=== PATIENT | female | born 1950 | race Caucasian/White ===

== ENCOUNTER 2020-04-05 10:48 | Outpatient (REF) | payer MEDICARE, MEDICAID, SELFPAY ==
--- NOTE | 2020-04-05 10:53 | CT_ITS ---
EXAMINATION: CT CHEST WITHOUT CONTRAST CLINICAL INFORMATION: Pulmonary nodule follow-up. COMPARISON: 04/15/2019, 08/13/2018. TECHNIQUE: Multidetector volumetric CT imaging of the chest was done. Axial MIP volume rendering provided. Sagittal and coronal reformatted images were obtained. This CT examination was performed using dose optimization techniques as appropriate, variously including the following: *Automated exposure control *Adjustment of mA and/or kV according to patient size (this includes techniques or standardized protocols for targeted exams where dose is matched to indication/reason for exam; i.e. extremities or head) *Use of iterative reconstruction technique DLP: 307 mGy-cm. FINDINGS: HANDKERCHIEF MAKER: No additional findings. LUNGS: Few scattered pulmonary nodules are unchanged since the most distant prior study available for comparison dated 08/13/2018. Reference images are made in PACS for future comparison. The largest lesion is in the lateral basal segment of the right lower lobe measuring 0.8 x 0.7 cm. No new or increasing pulmonary mass or nodule. There is a background of moderately severe centrilobular emphysematous changes predominantly involving the upper lung zones. Bibasilar curvilinear atelectasis. Stable curvilinear scar medial right apex. Trachea is midline and central airways are patent. MEDIASTINUM: Heart size is normal. No pericardial effusion. Coronary artery and thoracic aortic calcifications. No thoracic aortic aneurysm. No mediastinal or hilar lymphadenopathy. Limited views of the thyroid gland are unremarkable. PLEURA: No pleural effusion or pneumothorax. AXILLA: No axillary lymphadenopathy. UPPER ABDOMEN: Cholecystectomy. OSSEOUS STRUCTURES: Multiple old rib deformities from prior fracture. Posterior spinal fusion hardware is again appreciated involving the thoracic spine. No evidence of hardware failure. CT/CT chest wo con IMPRESSION: 1. Few scattered pulmonary nodules as detailed above, all unchanged since the most distant prior study available for comparison dated 08/13/2018. The largest measures 0.8 x 0.7 cm. According to the UPDATED 2017 Fleischner Society recommendations, the advised follow-up imaging for multiple solid nodules, the largest measuring 6 mm or greater, is: LOW RISK PATIENT: CT at 3-6 months, then consider CT at 18-24 months. HIGH RISK PATIENT: CT at 3-6 months, then at 18-24 months. 2. Centrilobular emphysematous changes of the lung. 3. Coronary artery and thoracic aortic calcifications. No evidence of thoracic aortic aneurysm.
== END 2020-04-05 10:49 | disposition home or self-care (01) ==
LOC: HO.CT 10:48
PROVIDERS: PCP Internal Medicine; Visit Provider Internal Medicine
DX: R91.1 Solitary pulmonary nodule (principal)
CPT/HCPCS: 71250

== ENCOUNTER 2020-05-04 15:00 | Outpatient (REF) | payer MEDICARE, MEDICAID, SELFPAY | END 2020-05-04 15:01 | disposition home or self-care (01) | LOC: HO.LAB 15:00 | PROVIDERS: Visit Provider Internal Medicine | DX: Z20.828 Contact with and (suspected) exposure to other viral communicable diseases (principal) | CPT/HCPCS: C9803; U0003 ==

== ENCOUNTER 2020-05-12 13:28 | Outpatient (REF) | payer MEDICARE, MEDICAID, SELFPAY | END 2020-05-12 13:29 | disposition home or self-care (01) | LOC: HO.LAB 13:28 | PROVIDERS: Visit Provider Internal Medicine | DX: Z20.828 Contact with and (suspected) exposure to other viral communicable diseases (principal) | CPT/HCPCS: C9803; U0003 ==

== ENCOUNTER 2020-06-18 11:42 | Outpatient (REF) | payer MEDICARE, MEDICAID, SELFPAY ==
--- NOTE | 2020-06-18 11:55 | XR_ITS ---
EXAMINATION: XR THORACIC SPINE CLINICAL INFORMATION: Pain right back T5-T8 COMPARISON: Previous x-ray most recent January 2017 TECHNIQUE: 3 views of the thoracic spine were obtained. FINDINGS: There is posterior fusion hardware with rods and interpedicular screws at C3, T4, T6 and T7. Orthopedic hardware appears intact. Bone alignment is normal. No fracture or dislocation is seen. There is mild multilevel degenerative spondylosis. Disc spaces are normal. Paraspinal soft tissues are normal. There are postsurgical changes to the lower cervical spine. XR/XR thoracic spine 3V IMPRESSION: Stable postsurgical changes to the thoracic spine. Mild degenerative spondylosis.
== END 2020-06-18 11:43 | disposition home or self-care (01) ==
LOC: HO.XRAY 11:42
PROVIDERS: PCP Internal Medicine; Visit Provider Internal Medicine
DX: M54.6 Pain in thoracic spine (principal)
CPT/HCPCS: 72072

== ENCOUNTER 2020-07-21 12:27 | Outpatient (REF) | payer MEDICARE, MEDICAID, SELFPAY ==
[2020-07-21 13:11] LABS: Estimated Average Glucose 140 mg/dL; Hemoglobin A1c % 6.5 %
== END 2020-07-21 12:28 | disposition home or self-care (01) ==
LOC: HO.LAB 12:27
PROVIDERS: PCP Internal Medicine; Visit Provider Internal Medicine
DX: E11.9 Type 2 diabetes mellitus without complications (principal); Z79.4 Long term (current) use of insulin
CPT/HCPCS: 36415; 83036

== ENCOUNTER 2020-08-27 11:30 | Outpatient (REF) | payer MEDICARE, MEDICAID, SELFPAY ==
--- NOTE | ~2020-08-27 | MM_ITS ---
EXAMINATION: MM SCREENING DIGITAL MAMMOGRAPHY, BILATERAL CLINICAL INFORMATION: Screening. Asymptomatic. The lifetime risk of breast cancer based on the Tyrer-Cuzick Model is 3%. COMPARISON: Mammography: 05/30/2019, 05/16/2018 TECHNIQUE: Digital mammography is performed in craniocaudal and mediolateral oblique views along with computer-aided detection (CAD). Additional right MLO view is provided. FINDINGS: There are scattered areas of fibroglandular density (ACR BI-RADS breast composition Category b). There are no significant masses, abnormal calcifications, or other abnormalities. The axilla and skin contours are unremarkable. No significant changes. MM/MM screening mammo BI IMPRESSION: No mammographic evidence of malignancy. ASSESSMENT: BI-RADS 1: Negative RECOMMENDATION: Routine annual mammography screening. This patient's information was entered into a reminder system with a target due date for their next mammogram.
--- NOTE | ~2020-08-27 | MM_ITS ---
EXAMINATION: BONE DENSITOMETRY CLINICAL INDICATION: Osteoporosis. COMPARISON: Previous BD dated 03/09/2017 and baseline BD dated 12/14/2006. TECHNIQUE: Using a [employer] DXA System (software version: 13.1) manufactured by [employer], dual-energy x-ray absorptiometry was performed of the lumbar spine and left hip. The images are of good technical quality. Summary results are attached. FINDINGS: AP SPINE L1-L2 (excluding L3 and L4): The data of L1-L4 has been changed to exclude the L3 and L4 vertebral bodies, because metallic artifact at these levels may cause overestimation of lumbar spine density. Current: BMD 1.406 g/cm2, Z-score 2.5, T-score 2.0, normal, 4.3% increase from previous, 15.9% increase from baseline (<5% change is not significant). Prior: BMD 1.348 g/cm2. Baseline: BMD 1.213 g/cm2. LEFT FEMUR, NECK: Current: BMD 0.956 g/cm2, Z-score 0.4, T-score -0.6, normal. Prior: BMD 0.913 g/cm2. Baseline: BMD 1.055 g/cm2. LEFT FEMUR, TOTAL: Current: BMD 1.001 g/cm2, Z-score 0.6, T-score -0.1, normal, 8.9% decrease from previous, 10.7% decrease from baseline (<5% change is not significant). Prior: BMD 1.099 g/cm2. Baseline: BMD 1.121 g/cm2. IDENTIFIED RISK FACTORS: Rheumatoid arthritis, height loss, history of fracture (adult). Early menopause, secondary osteoporosis. HISTORY OF FRACTURE: Pelvis, humerus/shoulder. Other. MEDICATIONS: None listed. MM/XR DEXA axial skeleton IMPRESSION: 1. DIAGNOSIS: Normal bone density based on the lowest T-score value of -0.6 in the femoral neck applying World Health Organization criteria. 2. 10-YEAR FRACTURE RISK PREDICTION, FRAX: Major osteoporotic fracture (clinical spine, forearm, hip or shoulder) 13.7%. Hip fracture 1.1%. 3. Treatment Recommendations: NOF guidelines recommend consideration for treatment in postmenopausal women and men age 50 and older presenting with the following: -A hip or vertebral (clinical or morphometric) fracture. -T-score less than or equal to -2.5 at the femoral neck or spine after appropriate evaluation to exclude secondary causes. -Low bone mass at the hip or spine and a 10-year fracture probability by FRAX of greater than or equal to 3% for hip fracture or greater than or equal to 20% for major osteoporotic fracture based on the [place] adapted WHO algorithm. 4. Other Recommendations: All treatment decisions require clinical judgment and consideration of individual patient factors, including patient preferences, comorbidities, previous drug use, risk factors not captured in the FRAX model (e.g. frailty, falls, vitamin D deficiency, increased bone turnover, interval significant decline in bone density) and possible under or overestimation of fracture risk by FRAX. FUTURE SCAN RECOMMENDATION: People with diagnosed cases of osteoporosis or at high risk for fracture should have regular bone mineral density tests. For patients eligible for Medicare, routine testing is allowed once every 2 years. The testing frequency can be increased to one year for patients who have rapidly progressing disease, those who are receiving or discontinuing medical therapy to restore bone mass, or have additional risk factors.
== END 2020-08-27 11:31 | disposition home or self-care (01) ==
LOC: HO.MAMMO 11:30
PROVIDERS: PCP Internal Medicine; Visit Provider Internal Medicine
DX: Z12.31 Encounter for screening mammogram for malignant neoplasm of breast (principal); Z13.820 Encounter for screening for osteoporosis; M81.8 Other osteoporosis without current pathological fracture; M06.9 Rheumatoid arthritis, unspecified; Z78.0 Asymptomatic menopausal state
CPT/HCPCS: 77067; 77080

== ENCOUNTER 2020-10-06 13:49 | Outpatient (REF) | payer MEDICARE, MEDICAID, SELFPAY ==
--- NOTE | ~2020-10-06 | CT_ITS ---
EXAMINATION: CT CHEST WITHOUT CONTRAST CLINICAL INFORMATION: Previous chest CT scans most recent March 2020 COMPARISON: None TECHNIQUE: Multidetector volumetric CT imaging of the chest was done. Axial MIP volume rendering provided. Sagittal and coronal reformatted images were obtained. This CT examination was performed using dose optimization techniques as appropriate, variously including the following: *Automated exposure control *Adjustment of mA and/or kV according to patient size (this includes techniques or standardized protocols for targeted exams where dose is matched to indication/reason for exam; i.e. extremities or head) *Use of iterative reconstruction technique DLP: 281 mGy-cm FINDINGS: PHYSICIAN OFFICE SPECIALIST: LUNGS: There is evidence of emphysema. There is linear scarring at the right lung apex axial image 92 series 5 that is stable. There is a 3 mm left upper lobe nodule axial image 96 series 5 that is stable. There is a 3 mm right upper lobe nodule axial image 153 series 5 that is stable. There is a 6 x 7 mm right lower lobe nodule axial image 270 series 5 that is stable. There is subsegmental atelectasis at the lung bases. The lungs are otherwise clear. MEDIASTINUM: There is coronary artery calcification. The mediastinum is otherwise normal. PLEURA: There is no pleural effusion. No pleural mass or thickening. AXILLA: No lymphadenopathy. UPPER ABDOMEN: Unremarkable. OSSEOUS STRUCTURES: There are postsurgical changes to the midthoracic spine with posterior fusion hardware. There are degenerative changes of the lower thoracic spine.. There are old left posterior rib fractures. CT/CT chest wo con IMPRESSION: Emphysema. Stable pulmonary nodules. Coronary artery calcification.
== END 2020-10-06 13:50 | disposition home or self-care (01) ==
LOC: HO.CT 13:49
PROVIDERS: PCP Internal Medicine; Visit Provider Internal Medicine
DX: R91.1 Solitary pulmonary nodule (principal)
CPT/HCPCS: 71250

== ENCOUNTER 2020-10-18 15:08 | Inpatient (IN) | payer MEDICARE, MEDICAID, SELFPAY ==
--- NOTE | ~2020-10-18 | NM_ITS ---
EXAMINATION: PULMONARY PERFUSION STUDY CLINICAL INFORMATION: Shortness of breath, high d-dimer. COMPARISON: No previous lung scan is available for comparison. Radiographs the chest dated 10/18/2020 are available for comparison. TECHNIQUE: Following the intravenous administration of 4.0 mCi Tc-99m MAA an 8-view perfusion study was performed using a dual detector gamma scintillation camera. No ventilation images were obtained. FINDINGS: Perfusion images: No segmental perfusion defects are present. A small subsegmental perfusion defect is present posteriorly in the right upper lobe. There is some prominence of the left interlobar lobar fissure. No other perfusion abnormalities are present. NM/NM pul perfusion IMPRESSION: Very low probability of pulmonary embolism.
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
--- NOTE | ~2020-10-18 | US_ITS ---
EXAMINATION: US VENOUS ULTRASOUND WITH DOPPLER LOWER EXTREMITY, BILATERAL CLINICAL INFORMATION: Evaluate DVT. PE. COMPARISON: None TECHNIQUE: Ultrasound of the deep veins is performed from the hip to the calf with compression sonography and color and pulse Doppler assessment. Spectral analysis with color-flow imaging is performed. FINDINGS: RIGHT: There is normal venous compression and respiratory variation and augmented flow. The visualized common femoral vein, superficial femoral vein, profunda femoral vein and popliteal vein show no DVT. The calf veins are not visualized. There is no significant popliteal fossa cyst. LEFT: There is normal venous compression and respiratory variation and augmented flow. The visualized common femoral vein, superficial femoral vein, profunda femoral vein and popliteal vein show no DVT. The calf veins are not visualized. There is no significant popliteal fossa cyst. If the patient's symptoms persist, followup ultrasound in 5 days 7 days might be of value to exclude proximal propagation from a non-visualized calf vein. US/US venous duplex LE IMPRESSION: No DVT demonstrated in bilateral lower extremity. Bilateral calf veins are not well visualized. There is no Paulson's cyst.
[2020-10-18 15:26] VITALS: BP 124/94; PULSE 122; O2SAT 100
[2020-10-18 15:33] VITALS: BP 166/79; PULSE 75; RESP 24; TEMP 36.6; O2SAT 96; BMI 55.2
--- NOTE | 2020-10-18 15:46 | ECG_ITS ---
Test Reason : DYSPNEA Blood Pressure : / mmHG Vent. Rate : 072 BPM Atrial Rate : 072 BPM P-R Int : 142 ms QRS Dur : 110 ms QT Int : 408 ms P-R-T Axes : 063 -25 036 degrees QTc Int : 446 ms Normal sinus rhythm Incomplete left bundle branch block Abnormal ECG No significant changes seen compared to prior EKG Referred By: Robert Jorgensen Electronically Signed By:NATHALIE MACK
--- NOTE | 2020-10-18 16:08 | ED.SOB ---
HPI - SOB/Dyspnea General Chief Complaint: Dyspnea Stated Complaint: sob Time Seen by Provider: 10/18/20 15:35 Source: patient and EMS Mode of arrival: EMS History of Present Illness HPI Narrative: 70-year-old female with a past medical history of diabetes, GERD, HTN, hypothyroid, BIBA c/o worsening SOB x few weeks with orthopnea, exertional dyspnea, intermittent palpitations, extremity swelling, and shortness of breath waking up from sleep repeatedly during the night. Admits to dry cough. Denies fever, chills, chest pain, abdominal pain, nausea/vomiting, recent travel, history of blood clots, sick contacts MD elicited complaint: shortness of breath and cough Related Data Allergies Allergy/AdvReac Type Severity Reaction Status Date / Time fish derived [fish] Allergy Anaphylaxis Verified 10/18/20 15:44 Iodinated Contrast Media Allergy Anaphylaxis Verified 10/18/20 15:44 [IV Contrast Dye] Penicillins Allergy Anaphylaxis Verified 10/18/20 15:44 Review of Systems Review of Systems: Constitutional: No Fever, No Chills, No Fatigue, No Malaise ENT/Mouth: No Ear Pain, No Nasal Congestion, No Sinus Pain, No sore throat Cardiovascular: No Chest Pain, + SOB, +Dyspnea on Exertion,+ Orthopnea, + Edema, + Palpitations Respiratory: + Cough, No Sputum, No Dyspnea Gastrointestinal: No Nausea, No Vomiting, No Diarrhea, No Constipation, No Abdominal pain Genitourinary: No Dysuria, No Urinary Frequency, No Hematuria Musculoskeletal: No joint pain, No Myalgias, No Joint Swelling Skin: No Skin Lesions, No rash Neuro: No Weakness, No Numbness, No Dizziness, No Headache Yes all other systems are reviewed and are negative ON LICENSE OF [facility] Past Medical History Attestation statement: The following information was validated with the patient. Medical History (Updated 10/18/20 @ 17:02 by AURELIA Carmona) Diabetes GERD (gastroesophageal reflux disease) HTN (hypertension) Hypothyroid Social History Social History Alcohol intake: never Smoking Status: Never smoker Use of substances other than those prescribed or required for medical reasons: No Advance Directives: No Advance Directives Information Provided: Yes Physical Exam Vital Signs: Vital Signs: Last Vital Signs Temp 98 F 10/18/20 15:33 Pulse 75 10/18/20 15:33 Resp 24 H 10/18/20 15:33 BP 166/79 H 10/18/20 15:33 Pulse Ox 96 10/18/20 15:33 Body Mass Index 55.2 Const: General: cooperative, no acute distress and anxious Orientation/consciousness: patient oriented x3 Limitations: no limitations HENMT: Head: Yes normal to inspection Ears: hearing grossly normal bilaterally General nose exam: Normal external nose present Face and sinus: Yes normal facial exam Eyes: General: appearance normal, both eyes and all related structures EOM: EOMs intact bilaterally Neck: Neck: Yes normal visual inspection and Yes no meningeal signs Resp: Effort & Inspection: normal respiratory effort Auscultation: no wheezes and diminished lung sounds (shallow) diffuse Cardio: Rate: regular rate Heart sounds: S1 normal heart sound present and S2 normal heart sound present GI: Inspection: Yes normal to inspection Palpation (GI): Soft to palpation, nontender, no guarding and not rigid Skin: Rashes: no rashes Wounds: no wounds Neuro: General: patient oriented x3 and no meningeal signs Gait exam (Neuro): Normal gait present Extrem: General: Yes normal to inspection Course Course Course Narrative: XR chest 2V IMPRESSION: No evidence for acute disease in the chest. -1700--ED care transferred to [facility] pending remaining labs and anticipated admission MDM - SOB/Dyspnea Lab Data Result diagrams: 10/18/20 16:24 10/18/20 16:24 Labs: Lab Results 10/18/20 10/18/20 Range/Units 16:24 16:24 WBC 11.9 H (4.8-10.8) X10*3/uL RBC 4.15 L (4.20-5.50) X10*6/uL Hgb 11.7 L (12.0-16.0) g/dl Hct 37.5 (37-47) % MCV 90.4 (80-98) fL MCH 28.2 (27.0-33.0) pg MCHC 31.2 (31.0-35.0) g/dl RDW 15.9 (11.0-16.0) % Plt Count 199 (160-400) X10*3/uL MPV 10.3 (9.4-12.3) fL Immature Gran % (Auto) 1.4 H (0.0-0.4) % Neut % (Auto) 72.5 (45-73) % Lymph % (Auto) 20.0 (20-40) % [place] % (Auto) 5.4 (2-11) % Eos % (Auto) 0.5 (0-4) % Baso % (Auto) 0.2 (0-2) % Lymph # (Auto) 2.4 (1.2-4.9) X10*3/uL [place] # (Auto) 0.6 (0.1-1.2) X10*3/uL Eos # (Auto) 0.1 (0.0-0.4) X10*3/uL Baso # (Auto) 0.0 (0.0-0.2) X10*3/uL Abs Immat Gran (auto) 0.17 H (0.00-0.03) X10*3/uL Absolute Neuts (auto) 8.7 H (2.0-8.3) X10*3/uL Absolute Nucleated RBC 0.000 (0.0-0.012) X10*3/uL Nucleated RBC % (auto) 0.0 (0.0-0.2) /100WBC PT 12.7 (10.8-13.0) SEC INR 1.1 (0.9-1.1) APTT 34.2 (24.1-38.0) SEC Discharge Plan Discharge Clinical Impression: Pitting edema, Dyspnea
[2020-10-18 16:34] LABS: MANUAL DIFF FLAG NO
[2020-10-18 16:36] LABS: Basophils Percent Auto 0.2 % (0-2); Eosinophils Absolute Auto 0.1 X10*3/uL (0.0-0.4); Eosinophils Percent Auto 0.5 % (0-4); Hematocrit 37.5 % (37-47); Hemoglobin 11.7 g/dl (12.0-16.0); Imm Gran Abs Auto 0.17 X10*3/uL (0.00-0.03); Imm Gran Pct Auto 1.4 % (0.0-0.4); Lymphocytes Absolute Auto 2.4 X10*3/uL (1.2-4.9); Mean Corpuscular HGB Conc 31.2 g/dl (31.0-35.0); Mean Corpuscular Hemoglobin 28.2 pg (27.0-33.0); Mean Corpuscular Volume 90.4 fL (80-98); Mean Platelet Volume 10.3 fL (9.4-12.3); Monocytes Absolute Auto 0.6 X10*3/uL (0.1-1.2); Monocytes Percent Auto 5.4 % (2-11); Neutrophils Absolute Auto 8.7 X10*3/uL (2.0-8.3); Neutrophils Percent Auto 72.5 % (45-73); Platelet Count 199 X10*3/uL (160-400); Red Blood Count 4.15 X10*6/uL (4.20-5.50); Red Cell Distribution Width 15.9 % (11.0-16.0); White Blood Count 11.9 X10*3/uL (4.8-10.8)
[2020-10-18 16:41] LABS: INTERNATIONAL NORM RATIO 1.1 (0.9-1.1); Prothrombin Time 12.7 SEC (10.8-13.0)
[2020-10-18 16:44] LABS: Partial Thromboplastin Time 34.2 SEC (24.1-38.0)
[2020-10-18 17:10] LABS: Alanine Aminotransferase 24 U/L (0-31); Albumin Level 3.3 g/dL (3.5-5.0); Alkaline Phosphatase 96 U/L (39-117); Anion Gap 11 (12-20); Aspartate Amino Transferase 35 U/L (5-31); Bilirubin Direct < 0.2 mg/dL (0.0-0.5); Bilirubin Total 0.4 mg/dL (0.0-1.0); Blood Urea Nitrogen 13 mg/dL (9-16); Calcium 8.6 mg/dL (8.4-10.2); Carbon Dioxide 34 mmol/L (22-29); Chloride 100 mmol/L (96-108); Creatinine Clr Calc Pharmacy 109.2; Estimated Glomerular Filt Rate > 60; Glucose Random 90 mg/dL (60-115); Magnesium 2.1 mg/dL (1.6-2.6); Potassium 4.3 mmol/L (3.3-5.1); Sodium 141 mmol/L (135-145); Total Protein 6.9 g/dL (6.5-8.0)
[2020-10-18 17:11] LABS: B Type Natriuretic Peptide 55 pg/mL (<100)
[2020-10-18 17:30] LABS: Troponin-I High Sensitivity 23.2 ng/L (<3.5-17.0)
[2020-10-18 17:45] LABS: Glucose, Whole Blood 67 mg/dL (60-115)
[2020-10-18] MEDS: Ibuprofen 600 MG TABLET PO (18:19)
[2020-10-18] MEDS: Furosemide 40 MG/4 ML VIAL IVPUSH (18:22)
[2020-10-18 18:24] VITALS: BP 153/62; PULSE 73; RESP 20; O2SAT 98
--- NOTE | 2020-10-18 18:30 | ECG_ITS ---
Test Reason : CP Blood Pressure : / mmHG Vent. Rate : 076 BPM Atrial Rate : 076 BPM P-R Int : 144 ms QRS Dur : 112 ms QT Int : 406 ms P-R-T Axes : 032 -30 043 degrees QTc Int : 456 ms Normal sinus rhythm Left axis deviation Incomplete left bundle branch block Abnormal ECG When compared with ECG of 18-OCT-2020 16:51, No significant changes seen Referred By: Lakisha Foster Electronically Signed By:NATHALIE MACK
[2020-10-18 18:46] LABS: Influenza A PCR NEGATIVE (Negative); Influenza B PCR NEGATIVE (Negative); Resp Syncy Virus RNA Qual PCR NEGATIVE (Negative); SARS COV2 PCR INHOUSE NEGATIVE (Negative)
[2020-10-18] MEDS: Aspirin 81 MG TAB.CHEW 324 MG PO (19:49)
[2020-10-18 20:00] VITALS: BP 130/74; PULSE 53; RESP 13; TEMP 36.6; O2SAT 98
[2020-10-18 20:03] LABS: Glucose Urine UA NEG (NEG); Leukocyte Esterase Urine TRACE (NEG); Nitrite Urine NEG (NEG); PH 8.5 (5.0-8.0); Specific Gravity - Urine 1.015 (1.005-1.025); UACC Culture Trigger YES; Urine Blood NEG (NEG); Urine Ketones NEG (NEG); Urine Protein NEG (NEG-TRACE)
[2020-10-18 20:04] LABS: Appearance Urine HAZY; Color Urine YELLOW
[2020-10-18 20:07] LABS: Troponin-I High Sensitivity 25.3 ng/L (<3.5-17.0)
[2020-10-18 20:26] LABS: Bacteria Urine TRACE /LPF; Mucus Urine 2+ /LPF; RBC Urine 0 /HPF (0); Squamous Epithelial Cell Urine 2+ /LPF
[2020-10-18 21:16] LABS: Glucose, Whole Blood 149 mg/dL (60-115)
--- NOTE | 2020-10-18 22:14 | PM.IMHP ---
History of Present Illness Date of Service: 10/18/20 Chief Complaint: SOB 70-year-old female with a past medical history of hypertension, hyperlipidemia, diabetes, hypothyroidism, contrast allergy presented to the hospital with a chief complaint of shortness of breath. Patient reported that over the past 4 days she has been having increased shortness of breath associated with dyspnea on exertion. Patient mentioned she is also short of breath at rest. Has orthopnea and PND as well. Noted leg swelling. Denies any chest pain palpitations. Denies any numbness tingling. Denies any fever chills cough and/or patient reports that patient had chronic home left-sided lower rib pain which worsens on deep inspiration. And has seen PCP. Denies any numbness tingling. Denies any GI or symptoms. Review of all other systems is negative except mentioned above ER course: Per ER team mentioned that patient complained of chest pain, EKG was normal sinus rhythm, follow-up EKG showed incomplete left bundle branch block. to have slightly elevated troponin of 23.2 followed by 25.21; EKG was nonischemic; discussed with the cardiology consult coroner technician who suggested admission to the [facility], mentioned no need for heparin drip and will be evaluated in the morning. ER team also given dose of Lasix for possible CHF. [facility] Medical History (Updated 10/19/20 @ 10:48 by Luis F Escalera MD) Diabetes Essential hypertension GERD (gastroesophageal reflux disease) HTN (hypertension) Hypothyroid Other and unspecified hyperlipidemia Type 2 diabetes mellitus with unspecified complications Social History Household Members: Friend(s) Housing: House Do you presently have visiting nurse or other home services: No Alcohol intake: never Smoking Status: Former smoker Tobacco Type: Cigarette Packs Per Day: 3 Cigarettes Per Day: 60.0 Years Smoked: 30 Smoked in Last 30 Days: No Patient Interested in Nicotine Replacement: No Patient Given Instructions on How to Stop Smoking: No Second Hand Smoke Exposure: No Use of substances other than those prescribed or required for medical reasons: Yes Substance Use Type: Painkillers Substance Use Type Other:: TAKE MORE MEDICATION DUE TO CHRONIC PAIN Currently Displaying Signs/Symptoms of Drug Intoxication Withdrawal: No Any prior treatment program specific to substance use: No Have you been hit, kicked, punched, or otherwise hurt by someone within the past year? If so, by whom?: No Do you feel safe in your current relationship?: No Current Relationship Is there a partner from a previous relationship who is making you feel unsafe now?: No Are you made to feel afraid or neglected: No Advance Directives: No Advance Directives Information Provided: Yes Do you have thoughts of harming others: None Do you have a plan to hurt others: No Plan Recently lost weight without trying: No Eating poorly because of decreased appetite: No Nutrition Risks: No Nutritional Risk Patient : No : No Poor oral hygiene: No service: No Current occupational status: employed Meds Allergies Allergy/AdvReac Type Severity Reaction Status Date / Time fish derived [fish] Allergy Anaphylaxis Verified 10/18/20 15:44 Iodinated Contrast Media Allergy Anaphylaxis Verified 10/18/20 15:44 [IV Contrast Dye] Penicillins Allergy Anaphylaxis Verified 10/18/20 15:44 Active Medications: Current Medications Generic Name Dose Route Start Last Admin Trade Name Freq PRN Reason Stop Dose Admin Enoxaparin Sodium 40 mg 10/18/20 22:15 Enoxaparin Sodium 40 Mg/0.4 Ml Syringe SUBCUT Q24H [facility] Furosemide 40 mg 10/19/20 08:00 Furosemide 40 Mg/4 Ml Vial IVPUSH BIDWM [facility] Protocol Insulin Human Lispro 0 unit 10/19/20 07:30 Insulin Lispro 100 Unit/Ml 3 Ml Vial SUBCUT QIDACHS [facility] Protocol Nitroglycerin 0.4 mg 10/18/20 22:07 Nitroglycerin 0.4 Mg Tab.Subl SUBLINGUAL Q5M PRN Chest Pain Sodium Chloride 3 ml 10/19/20 00:00 0.9 % Sodium Chloride Flush 3 Ml Syringe IVFLUSH QSHIFT [facility] Home Medications Medication Instructions Recorded Confirmed Last Taken Type allopurinol 1 tab PO BEDTIME 10/18/20 10/19/20 Unknown History atorvastatin 1 tab PO DAILY 10/18/20 10/18/20 Unknown History divalproex 1 tab PO DAILY 10/18/20 10/19/20 Unknown History furosemide 1 tab PO DAILY 10/18/20 10/18/20 Unknown History gabapentin 1 tab PO DAILY 10/18/20 10/19/20 Unknown History glipizide 10 mg PO BID 10/18/20 10/18/20 Unknown History ibuprofen 1 tab PO TID PRN 10/18/20 10/18/20 Unknown History insulin aspart U-100 [Novolog See Rx Instructions .ROUTE .COMPLEX 10/18/20 10/18/20 Unknown History U-100 Insulin aspart] insulin degludec [Tresiba 60 unit SUBCUT DAILY 10/18/20 10/19/20 Unknown History FlexTouch U-100] insulin syringe-needle U-100 [Easy 10/18/20 10/18/20 Unknown History Touch Insulin Syringe] levothyroxine [Euthyrox] 1 tab PO DAILY 10/18/20 10/18/20 Unknown History lorazepam 1 tab PO TID 10/18/20 10/18/20 Unknown History losartan 1 tab PO DAILY 10/18/20 10/18/20 Unknown History metronidazole 1 applic TOPICAL BID PRN 10/18/20 10/18/20 Unknown History omeprazole 1 cap PO BID 10/18/20 10/18/20 Unknown History oxycodone 1 tab PO TID PRN 10/18/20 10/18/20 Unknown History oxycodone [OxyContin] 1 tab PO TID PRN 10/18/20 10/18/20 Unknown History insulin degludec [Tresiba 56 unit SUBCUT BEDTIME 10/19/20 10/19/20 Unknown History FlexTouch U-100] Physical Exam Vital Signs and Narrative: Vital Signs: Last Vital Signs Temp 98 F 10/18/20 20:00 Pulse 53 10/18/20 20:00 Resp 13 10/18/20 20:00 BP 130/74 10/18/20 20:00 Pulse Ox 98 10/18/20 20:00 Body Mass Index 55.2 Gen: Appears be in no acute distress; speaks in full sentences HEENT: NCAT, Moist mucosa. Pulmonary: Slightly diminished breath sounds CVS: Normal S1-S2 Abdomen: BS+, Soft, Nontender Extremities: Warm well perfused; pedal edema present Neuro: Alert and awake. Results Labs CBC and Chem 7: 10/19/20 09:57 10/19/20 09:57 Labs: Laboratory Results - last 24 hr 10/18/20 10/18/20 10/18/20 16:24 16:24 16:24 MCV 90.4 MCH 28.2 MCHC 31.2 RDW 15.9 Plt Count 199 MPV 10.3 Immature Gran % (Auto) 1.4 H Neut % (Auto) 72.5 Lymph % (Auto) 20.0 [place] % (Auto) 5.4 Eos % (Auto) 0.5 Baso % (Auto) 0.2 Lymph # (Auto) 2.4 [place] # (Auto) 0.6 Eos # (Auto) 0.1 Baso # (Auto) 0.0 Abs Immat Gran (auto) 0.17 H Absolute Neuts (auto) 8.7 H Absolute Nucleated RBC 0.000 Nucleated RBC % (auto) 0.0 PT INR APTT Anion Gap 11 L Estim Creat Clear Calc 109.2 Estimated GFR > 60 POC Glucose Random Glucose 90 Calcium 8.6 Magnesium 2.1 Total Bilirubin 0.4 Direct Bilirubin < 0.2 AST 35 H ALT 24 Alkaline Phosphatase 96 Troponin I High Sens 23.2 H* B-Natriuretic Peptide Total Protein 6.9 Albumin 3.3 L Urine Color Urine Appearance Urine pH Ur Specific [place] Urine Protein Urine Glucose (UA) Urine Ketones Urine Blood Urine Nitrite Ur Leukocyte Esterase Urine RBC Urine WBC Ur Squamous Epith Cells Urine Bacteria Urine Mucus Coronavirus (PCR) Influenza Type A (PCR) Influenza Type B (PCR) RSV RNA Qual (PCR) 10/18/20 10/18/20 10/18/20 16:24 16:24 16:24 MCV MCH MCHC RDW Plt Count MPV Immature Gran % (Auto) Neut % (Auto) Lymph % (Auto) [place] % (Auto) Eos % (Auto) Baso % (Auto) Lymph # (Auto) [place] # (Auto) Eos # (Auto) Baso # (Auto) Abs Immat Gran (auto) Absolute Neuts (auto) Absolute Nucleated RBC Nucleated RBC % (auto) PT 12.7 INR 1.1 APTT 34.2 Anion Gap Estim Creat Clear Calc Estimated GFR POC Glucose Random Glucose Calcium Magnesium Total Bilirubin Direct Bilirubin AST ALT Alkaline Phosphatase Troponin I High Sens B-Natriuretic Peptide 55 Total Protein Albumin Urine Color Urine Appearance Urine pH Ur Specific [place] Urine Protein Urine Glucose (UA) Urine Ketones Urine Blood Urine Nitrite Ur Leukocyte Esterase Urine RBC Urine WBC Ur Squamous Epith Cells Urine Bacteria Urine Mucus Coronavirus (PCR) NEGATIVE Influenza Type A (PCR) NEGATIVE Influenza Type B (PCR) NEGATIVE RSV RNA Qual (PCR) NEGATIVE 10/18/20 10/18/20 10/18/20 17:36 19:25 19:47 MCV MCH MCHC RDW Plt Count MPV Immature Gran % (Auto) Neut % (Auto) Lymph % (Auto) [place] % (Auto) Eos % (Auto) Baso % (Auto) Lymph # (Auto) [place] # (Auto) Eos # (Auto) Baso # (Auto) Abs Immat Gran (auto) Absolute Neuts (auto) Absolute Nucleated RBC Nucleated RBC % (auto) PT INR APTT Anion Gap Estim Creat Clear Calc Estimated GFR POC Glucose 67 Random Glucose Calcium Magnesium Total Bilirubin Direct Bilirubin AST ALT Alkaline Phosphatase Troponin I High Sens 25.3 H* B-Natriuretic Peptide Total Protein Albumin Urine Color YELLOW Urine Appearance HAZY Urine pH 8.5 H Ur Specific [place] 1.015 Urine Protein NEG Urine Glucose (UA) NEG Urine Ketones NEG Urine Blood NEG Urine Nitrite NEG Ur Leukocyte Esterase TRACE H Urine RBC 0 Urine WBC 15-29 H Ur Squamous Epith Cells 2+ Urine Bacteria TRACE Urine Mucus 2+ Coronavirus (PCR) Influenza Type A (PCR) Influenza Type B (PCR) RSV RNA Qual (PCR) 10/18/20 21:12 MCV MCH MCHC RDW Plt Count MPV Immature Gran % (Auto) Neut % (Auto) Lymph % (Auto) [place] % (Auto) Eos % (Auto) Baso % (Auto) Lymph # (Auto) [place] # (Auto) Eos # (Auto) Baso # (Auto) Abs Immat Gran (auto) Absolute Neuts (auto) Absolute Nucleated RBC Nucleated RBC % (auto) PT INR APTT Anion Gap Estim Creat Clear Calc Estimated GFR POC Glucose 149 H Random Glucose Calcium Magnesium Total Bilirubin Direct Bilirubin AST ALT Alkaline Phosphatase Troponin I High Sens B-Natriuretic Peptide Total Protein Albumin Urine Color Urine Appearance Urine pH Ur Specific [place] Urine Protein Urine Glucose (UA) Urine Ketones Urine Blood Urine Nitrite Ur Leukocyte Esterase Urine RBC Urine WBC Ur Squamous Epith Cells Urine Bacteria Urine Mucus Coronavirus (PCR) Influenza Type A (PCR) Influenza Type B (PCR) RSV RNA Qual (PCR) Imaging Radiologist's Impressions: Impressions Chest X-Ray 10/18/20 15:46 IMPRESSION: No evidence for acute disease in the chest. Assessment and Plan (1) CHF (congestive heart failure): Status: Acute 70-year-old female with a past medical history of hypertension, hyperlipidemia, diabetes, hypothyroidism presented to the hospital with a chief complaint of shortness of breath/dyspnea on exertion CHF: Continue Lasix 40 mg IV daily. Daily intake and output; daily weights; cardiology consult. Echocardiogram. Chest pain: Patient had indeterminate troponins. EKG showed incomplete left bundle-branch block. Cardiology Dr. Escalera was notified, recommended to admit [facility] and mention no need for heparin drip at this point. Will monitor on telemetry. Sublingual nitroglycerin p.r.n. for chest pain. D-dimer elevated; Will obtain VQ scan and Empirically s/w Lovenox untill VQ is back. Hypertension/hyperlipidemia: Continue home medications. Diabetes: Insulin sliding scale Hypothyroidism: Continue levothyroxine. For all other chronic conditions, home medications will be continued DVT prophylaxis: SCD boots Code status: Full code
[2020-10-18] MEDS: LORazepam 1 MG TABLET PO (22:16)
[2020-10-18 22:18] VITALS: BP 137/58; PULSE 72; RESP 22; O2SAT 98
[2020-10-18 23:22] LABS: D Dimer 509 NG/ML
[2020-10-19] VITALS (10 sets, daily range): BP systolic 102–173; BP diastolic 40–67; PULSE 67–82; RESP 16–21; TEMP 36.4–36.6; O2SAT 93–99
[2020-10-19] LABS: Cholesterol 141 mg/dL; HDL Cholesterol 33 mg/dL; LDL Cholesterol Calculated 73 mg/dl; Triglycerides 178 mg/dL
--- NOTE | 2020-10-19 | ECG_ITS ---
Test Reason : CP Blood Pressure : / mmHG Vent. Rate : 069 BPM Atrial Rate : 069 BPM P-R Int : 140 ms QRS Dur : 116 ms QT Int : 428 ms P-R-T Axes : 088 -26 061 degrees QTc Int : 458 ms Normal sinus rhythm Incomplete left bundle branch block Abnormal ECG When compared with ECG of 18-OCT-2020 18:35, No significant change was found Referred By: Robert Jorgensen Electronically Signed By:NATHALIE MACK
[2020-10-19] MEDS: 0.9 % Sodium Chloride Flush 3 ML SYRINGE IVFLUSH ×4 (00:23→21:12)
[2020-10-19] MEDS: cefTRIAXone sodium 1 GM in 0.9 % Sodium Chloride 50 ML IV ×2 (00:23→21:04)
[2020-10-19] MEDS: Enoxaparin Sodium 40 MG/0.4 ML SYRINGE SUBCUT (00:23)
[2020-10-19] MEDS: oxyCODONE HCl Immed Release 5 MG TABLET 10 MG PO ×2 (00:23→21:06)
--- NOTE | 2020-10-19 01:08 | PC.NURSE ---
Report given to JANEL Dietz on [facility]. Preparing for admission.
--- NOTE | 2020-10-19 02:14 | PC.NURSE ---
Patient now cannot be transferred to [facility] at this time, due to another patient being transferred to [facility] from another facility, and being given this patient's room (452). No alternative room assignment available at this time. This RN was awaiting an available monitor technician and room clean on unit in order to transport to unit, and had already given report to Marjan ISLAS on [facility]. Patient is now to remain in ED until a new room becomes available on [facility]. Pt moved into a hospital bed to room ED 17 for comfort. TV in ED room 18 does not work. Nursing Electronic Imager (Mini Red), foxing closer (Amparo Cheung), (Chinyere), and hospitalist (Evangelina) aware. Will continue to monitor patient in ED.
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
--- NOTE | 2020-10-19 03:00 | PC.NURSE ---
VQ scan to be ordered by hospitalist.
[2020-10-19 03:43] LABS: Troponin-I High Sensitivity 22.9 ng/L (<3.5-17.0)
[2020-10-19] MEDS: Enoxaparin Sodium 100 MG/ML SYRINGE SUBCUT (04:35)
[2020-10-19] MEDS: Morphine Sulfate 2 MG/ML CARTRIDGE 1 MG IVPUSH (04:58)
--- NOTE | 2020-10-19 07:02 | PC.NURSE ---
called for report, jeronimo to call back
--- NOTE | 2020-10-19 08:13 | HE.PHANOTE ---
Pharmacy Consult ? Medication Reconciliation Pharmacy has completed the medication reconciliation and there were no significant medication issues requiring provider attention. Patient reports taking oxycontin 40 mg tid prn severe pain. Patient also reports only taking divalproex and gabapentin daily since they dont offer much pain relief. Moni Lomas PharmD [phone]
[2020-10-19 09:27] LABS: Glucose, Whole Blood 61 mg/dL (60-115)
--- NOTE | 2020-10-19 09:39 | P.CDIC_ITS ---
CDI Concurrent Query Service Date: 10/19/20 Documentation Clarification: Please clarify if you are treating a proba ble/suspected/likely or confirmed: BMI Morbid obesity Please specify if known Provider Response: Morbid Obesity PLEASE DO NOT DELETE/MODIFY EXISTING CONTENT Additional information is needed in order to code to the highest accuracy and appropriate Severity of Illness (SOI). Please clarify the information noted below in your progress notes and discharge summary. Risk Factors/Clinical Indicators/Treatments Body mass index: 55.2 Ext. [id number] Please Review the information above and exercise your independent professional judgment in responding to the query. If you concur, pleas document in the PROGRESS NOTES and DISCHARGE SUMMARY. If you do not agree with the query, please document in the query above. THIS QUERY IS PART OF THE PERMANENT MEDICAL RECORD
[2020-10-19] MEDS: Furosemide 40 MG/4 ML VIAL IVPUSH ×2 (09:45→18:15)
[2020-10-19] MEDS: Gabapentin 400 MG CAPSULE 800 MG PO (09:46)
[2020-10-19] MEDS: Losartan Potassium 50 MG TABLET PO (09:47)
[2020-10-19] MEDS: Atorvastatin Calcium 10 MG TABLET PO (09:47)
[2020-10-19 10:02] LABS: MANUAL DIFF FLAG NO
--- NOTE | 2020-10-19 10:03 | MHC.CM.PN ---
nurse care manger note electronic medical record reviewed along with case discussed with staff nurse , patient will be starting on sc lovenox today first dose 10 am requested nursing to provide teaching as pt is on this bid. (spoke to patient about this , he reported to me that before his bariatric surgery he use to give himself insulin , and now no longer needs it, he also had his l-melissa and was on loveno sc, he would appreciate reinforcement teaching by the vna ) . 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 he is active and independent in all adls with out any device. he lives with his and two daughters. discharge plan -anticipate discharge later today pending ortho surgical re-assessment. requested copy of hcp naming his as his hcp agent. new referral to the [facility] nursing to start tomorrow before 10 am for sc lovenox reinforcement teaching and to also start home physical thearpy.iniated referral and recived confirmation of start date transpotation family
[2020-10-19 10:06] LABS: Basophils Percent Auto 0.3 % (0-2); Eosinophils Absolute Auto 0.1 X10*3/uL (0.0-0.4); Eosinophils Percent Auto 0.6 % (0-4); Imm Gran Abs Auto 0.13 X10*3/uL (0.00-0.03); Imm Gran Pct Auto 1.1 % (0.0-0.4); Lymphocytes Absolute Auto 2.1 X10*3/uL (1.2-4.9); Lymphocytes Percent Auto 18.4 % (20-40); Mean Corpuscular HGB Conc 30.8 g/dl (31.0-35.0); Mean Corpuscular Volume 90.9 fL (80-98); Mean Platelet Volume 10.1 fL (9.4-12.3); Monocytes Absolute Auto 0.7 X10*3/uL (0.1-1.2); Monocytes Percent Auto 6.3 % (2-11); Neutrophils Absolute Auto 8.6 X10*3/uL (2.0-8.3); Neutrophils Percent Auto 73.3 % (45-73); Platelet Count 189 X10*3/uL (160-400); Red Blood Count 4.29 X10*6/uL (4.20-5.50); White Blood Count 11.7 X10*3/uL (4.8-10.8)
[2020-10-19 10:36] LABS: Anion Gap 14 (12-20); Blood Urea Nitrogen 17 mg/dL (9-16); Calcium 8.6 mg/dL (8.4-10.2); Carbon Dioxide 31 mmol/L (22-29); Chloride 100 mmol/L (96-108); Creatinine Clr Calc Pharmacy 106.1; Estimated Glomerular Filt Rate > 60; Glucose Random 90 mg/dL (60-115); Magnesium 2.1 mg/dL (1.6-2.6); Potassium 4.1 mmol/L (3.3-5.1); Sodium 141 mmol/L (135-145)
--- NOTE | 2020-10-19 10:44 | PM.CNCAR ---
History of Present Illness History of Present Illness Date of Service: 10/19/20 Consult reason: congestive heart failure Chief complaint: CHF Narrative: This is a cardiology consultation for evaluation of shortness of breath. Patient does not have any known cardiac problems. She states she has had no prior myocardial infarction or coronary disease or cardiomyopathy or in fact any specific cardiac concerns at all. She has a history of hypertension, hyperlipidemia and diabetes. For the last few days, she has been having increasing shortness of breath. She has also been having increasing leg swelling. She states that she never had these symptoms before. She is morbidly obese. She is also walking with a walker. She has been admitted for further evaluation. Denies any anginal-type symptoms. Review of Systems Review of Systems: Yes all other systems are reviewed and are negative Cardiovascular: Cardiovascular: Reports as per HPI, Reports no additional cardiovascular complaints, Denies acrocyanosis, Denies cool extremities, Denies painful fingertips, Denies chest pain, Denies chest pain at rest, Denies diaphoresis, Denies syncope, Denies irregular heart rhythm, Denies claudication, Reports leg edema, Denies lightheadedness, Denies palpitations and Reports dyspnea Respiratory: Respiratory: Reports dyspnea Neurologic: Denies syncope Endocrine: Endocrine: Denies palpitations [facility] Past Medical History Medical History (Updated 10/19/20 @ 10:48 by Luis F Escalera MD) Diabetes Essential hypertension GERD (gastroesophageal reflux disease) HTN (hypertension) Hypothyroid Other and unspecified hyperlipidemia Type 2 diabetes mellitus with unspecified complications Social History Social History Household Members: Friend(s) Housing: House Do you presently have visiting nurse or other home services: No Alcohol intake: never Smoking Status: Former smoker Tobacco Type: Cigarette Packs Per Day: 3 Cigarettes Per Day: 60.0 Years Smoked: 30 Smoked in Last 30 Days: No Patient Interested in Nicotine Replacement: No Patient Given Instructions on How to Stop Smoking: No Second Hand Smoke Exposure: No Use of substances other than those prescribed or required for medical reasons: Yes Substance Use Type: Painkillers Substance Use Type Other:: TAKE MORE MEDICATION DUE TO CHRONIC PAIN Any prior treatment program specific to substance use: No Have you been hit, kicked, punched, or otherwise hurt by someone within the past year? If so, by whom?: No Do you feel safe in your current relationship?: No Current Relationship Is there a partner from a previous relationship who is making you feel unsafe now?: No Are you made to feel afraid or neglected: No Advance Directives: No Advance Directives Information Provided: Yes Do you have thoughts of harming others: None Do you have a plan to hurt others: No Plan Recently lost weight without trying: No Eating poorly because of decreased appetite: No Nutrition Risks: No Nutritional Risk Patient : No : No Poor oral hygiene: No service: No Current occupational status: employed Meds Allergies Allergy/AdvReac Type Severity Reaction Status Date / Time fish derived [fish] Allergy Anaphylaxis Verified 10/18/20 15:44 Iodinated Contrast Media Allergy Anaphylaxis Verified 10/18/20 15:44 [IV Contrast Dye] Penicillins Allergy Anaphylaxis Verified 10/18/20 15:44 Active Medications: Current Medications Generic Name Dose Route Start Last Admin Trade Name Freq PRN Reason Stop Dose Admin Allopurinol 300 mg 10/19/20 09:00 10/19/20 09:47 Allopurinol 300 Mg Tablet PO Not Given DAILY [facility] Atorvastatin Calcium 10 mg 10/19/20 09:00 10/19/20 09:47 Atorvastatin Calcium 10 Mg Tablet PO 10 mg DAILY [facility] Administration Divalproex Sodium 500 mg 10/19/20 09:00 10/19/20 09:48 Divalproex Sodium Er 500 Mg Tab.Er.24h PO Not Given DAILY [facility] Furosemide 40 mg 10/19/20 18:00 Furosemide 40 Mg/4 Ml Vial IVPUSH BID@0900,1800 [facility] Protocol Gabapentin 800 mg 10/19/20 09:00 10/19/20 09:46 Gabapentin 400 Mg Capsule PO 800 mg DAILY [facility] Administration Ceftriaxone Sodium 1 gm/ 50 mls @ 100 mls/hr 10/18/20 22:15 10/19/20 00:53 Sodium Chloride IV Infused Q24H [facility] Infusion Ibuprofen 800 mg 10/19/20 08:12 Ibuprofen 800 Mg Tablet PO TID PRN Pain, Mild (Pain Scale 1-3) Insulin Glargine 40 unit 10/19/20 21:00 Insulin Glargine,Hum.Rec.Anlog 100 Unit/Ml 10 Ml Vial SUBCUT BEDTIME [facility] Insulin Human Lispro 0 unit 10/19/20 07:30 10/19/20 09:38 Insulin Lispro 100 Unit/Ml 3 Ml Vial SUBCUT Not Given QIDACHS [facility] Protocol Levothyroxine Sodium 75 mcg 10/19/20 06:30 10/19/20 09:38 Levothyroxine Sodium 75 Mcg Tablet PO Not Given DAILY@0630 [facility] Lorazepam 1 mg 10/19/20 09:00 10/19/20 09:47 Lorazepam 1 Mg Tablet PO Not Given TID [facility] Losartan Potassium 50 mg 10/19/20 09:00 10/19/20 09:47 Losartan Potassium 50 Mg Tablet PO 50 mg DAILY [facility] Administration Protocol Morphine Sulfate 1 mg 10/19/20 02:47 10/19/20 04:58 Morphine Sulfate 2 Mg/Ml Cartridge IVPUSH 1 mg Q4H PRN Administration Chest Pain Nitroglycerin 0.4 mg 10/18/20 22:07 Nitroglycerin 0.4 Mg Tab.Subl SUBLINGUAL Q5M PRN Chest Pain Omeprazole 20 mg 10/19/20 06:30 10/19/20 09:38 Omeprazole 20 Mg Capsule.Dr PO Not Given BID@0630,1630 [facility] Oxycodone HCl 10 mg 10/19/20 02:44 Oxycodone Hcl Immed Release 5 Mg Tablet PO TID PRN Pain, Severe (Pain Scale 7-10) Oxycodone HCl 40 mg 10/19/20 08:11 Oxycodone Hcl Er 40 Mg Tab.Er.12h PO TID PRN Pain, Severe (Pain Scale 7-10) Sodium Chloride 3 ml 10/19/20 00:00 10/19/20 09:46 0.9 % Sodium Chloride Flush 3 Ml Syringe IVFLUSH 3 ml QSHIFT [facility] Administration Home Medications Medication Instructions Recorded Confirmed Last Taken Type allopurinol 1 tab PO BEDTIME 10/18/20 10/19/20 Unknown History atorvastatin 1 tab PO DAILY 10/18/20 10/18/20 Unknown History divalproex 1 tab PO DAILY 10/18/20 10/19/20 Unknown History furosemide 1 tab PO DAILY 10/18/20 10/18/20 Unknown History gabapentin 1 tab PO DAILY 10/18/20 10/19/20 Unknown History glipizide 10 mg PO BID 10/18/20 10/18/20 Unknown History ibuprofen 1 tab PO TID PRN 10/18/20 10/18/20 Unknown History insulin aspart U-100 [Novolog See Rx Instructions .ROUTE .COMPLEX 10/18/20 10/18/20 Unknown History U-100 Insulin aspart] insulin degludec [Tresiba 60 unit SUBCUT DAILY 10/18/20 10/19/20 Unknown History FlexTouch U-100] insulin syringe-needle U-100 [Easy 10/18/20 10/18/20 Unknown History Touch Insulin Syringe] levothyroxine [Euthyrox] 1 tab PO DAILY 10/18/20 10/18/20 Unknown History lorazepam 1 tab PO TID 10/18/20 10/18/20 Unknown History losartan 1 tab PO DAILY 10/18/20 10/18/20 Unknown History metronidazole 1 applic TOPICAL BID PRN 10/18/20 10/18/20 Unknown History omeprazole 1 cap PO BID 10/18/20 10/18/20 Unknown History oxycodone 1 tab PO TID PRN 10/18/20 10/18/20 Unknown History oxycodone [OxyContin] 1 tab PO TID PRN 10/18/20 10/18/20 Unknown History insulin degludec [Tresiba 56 unit SUBCUT BEDTIME 10/19/20 10/19/20 Unknown History FlexTouch U-100] Physical Exam Vital Signs: Vital Signs: Last Vital Signs Temp 97.5 F 10/19/20 09:05 Pulse 67 10/19/20 09:05 Resp 19 10/19/20 09:05 BP 131/60 10/19/20 09:05 Pulse Ox 98 10/19/20 09:05 Body Mass Index 55.2 Const: General: cooperative, comfortable and no acute distress Orientation/consciousness: patient oriented x3 HENMT: Other: Unremarkable Neck: Neck: Yes normal visual inspection Chest: Chest palpation & inspection: normal inspection of the chest Resp: Auscultation: clear to auscultation bilaterally, no crackles and no wheezes Cardio: Jugular venous distension: no JVD Palpation: normal PMI Heart sounds: S1 normal heart sound present, S2 normal heart sound present, no gallops, Murmur heart sound present systolic early, II/ and at the right sternal border and no rubs GI: Palpation (GI): Soft to palpation Back/Spine/Pelvis: Other: unremarkable Skin: General skin exam: no rashes or lesions noted Neuro: General: patient oriented x3 Extrem: General: Yes pedal edema (2+) Psych: Mental Status: mental status grossly normal Results Labs and Meds Result diagrams: 10/19/20 09:57 10/19/20 09:57 Lab results: Laboratory Results - last 24 hr 10/18/20 10/18/20 10/18/20 16:24 16:24 16:24 WBC 11.9 H RBC 4.15 L Hgb 11.7 L Hct 37.5 MCV 90.4 MCH 28.2 MCHC 31.2 RDW 15.9 Plt Count 199 MPV 10.3 Immature Gran % (Auto) 1.4 H Neut % (Auto) 72.5 Lymph % (Auto) 20.0 [place] % (Auto) 5.4 Eos % (Auto) 0.5 Baso % (Auto) 0.2 Lymph # (Auto) 2.4 [place] # (Auto) 0.6 Eos # (Auto) 0.1 Baso # (Auto) 0.0 Abs Immat Gran (auto) 0.17 H Absolute Neuts (auto) 8.7 H Absolute Nucleated RBC 0.000 Nucleated RBC % (auto) 0.0 PT INR APTT D-Dimer Sodium 141 Potassium 4.3 Chloride 100 Carbon Dioxide 34 H Anion Gap 11 L BUN 13 Creatinine 0.68 Estim Creat Clear Calc 109.2 Estimated GFR > 60 POC Glucose Random Glucose 90 Calcium 8.6 Magnesium 2.1 Total Bilirubin 0.4 Direct Bilirubin < 0.2 AST 35 H ALT 24 Alkaline Phosphatase 96 Troponin I High Sens 23.2 H* B-Natriuretic Peptide Total Protein 6.9 Albumin 3.3 L Triglycerides Cholesterol LDL Cholesterol, Calc HDL Cholesterol TSH Urine Color Urine Appearance Urine pH Ur Specific [place] Urine Protein Urine Glucose (UA) Urine Ketones Urine Blood Urine Nitrite Ur Leukocyte Esterase Urine RBC Urine WBC Ur Squamous Epith Cells Urine Bacteria Urine Mucus Coronavirus (PCR) Influenza Type A (PCR) Influenza Type B (PCR) RSV RNA Qual (PCR) 10/18/20 10/18/20 10/18/20 16:24 16:24 16:24 WBC RBC Hgb Hct MCV MCH MCHC RDW Plt Count MPV Immature Gran % (Auto) Neut % (Auto) Lymph % (Auto) [place] % (Auto) Eos % (Auto) Baso % (Auto) Lymph # (Auto) [place] # (Auto) Eos # (Auto) Baso # (Auto) Abs Immat Gran (auto) Absolute Neuts (auto) Absolute Nucleated RBC Nucleated RBC % (auto) PT 12.7 INR 1.1 APTT 34.2 D-Dimer 509 Sodium Potassium Chloride Carbon Dioxide Anion Gap BUN Creatinine Estim Creat Clear Calc Estimated GFR POC Glucose Random Glucose Calcium Magnesium Total Bilirubin Direct Bilirubin AST ALT Alkaline Phosphatase Troponin I High Sens B-Natriuretic Peptide 55 Total Protein Albumin Triglycerides Cholesterol LDL Cholesterol, Calc HDL Cholesterol TSH Urine Color Urine Appearance Urine pH Ur Specific [place] Urine Protein Urine Glucose (UA) Urine Ketones Urine Blood Urine Nitrite Ur Leukocyte Esterase Urine RBC Urine WBC Ur Squamous Epith Cells Urine Bacteria Urine Mucus Coronavirus (PCR) NEGATIVE Influenza Type A (PCR) NEGATIVE Influenza Type B (PCR) NEGATIVE RSV RNA Qual (PCR) NEGATIVE 10/18/20 10/18/20 10/18/20 17:36 19:25 19:47 WBC RBC Hgb Hct MCV MCH MCHC RDW Plt Count MPV Immature Gran % (Auto) Neut % (Auto) Lymph % (Auto) [place] % (Auto) Eos % (Auto) Baso % (Auto) Lymph # (Auto) [place] # (Auto) Eos # (Auto) Baso # (Auto) Abs Immat Gran (auto) Absolute Neuts (auto) Absolute Nucleated RBC Nucleated RBC % (auto) PT INR APTT D-Dimer Sodium Potassium Chloride Carbon Dioxide Anion Gap BUN Creatinine Estim Creat Clear Calc Estimated GFR POC Glucose 67 Random Glucose Calcium Magnesium Total Bilirubin Direct Bilirubin AST ALT Alkaline Phosphatase Troponin I High Sens 25.3 H* B-Natriuretic Peptide Total Protein Albumin Triglycerides Cholesterol LDL Cholesterol, Calc HDL Cholesterol TSH Urine Color YELLOW Urine Appearance HAZY Urine pH 8.5 H Ur Specific [place] 1.015 Urine Protein NEG Urine Glucose (UA) NEG Urine Ketones NEG Urine Blood NEG Urine Nitrite NEG Ur Leukocyte Esterase TRACE H Urine RBC 0 Urine WBC 15-29 H Ur Squamous Epith Cells 2+ Urine Bacteria TRACE Urine Mucus 2+ Coronavirus (PCR) Influenza Type A (PCR) Influenza Type B (PCR) RSV RNA Qual (PCR) 10/18/20 10/18/20 10/19/20 21:12 23:18 03:00 WBC RBC Hgb Hct MCV MCH MCHC RDW Plt Count MPV Immature Gran % (Auto) Neut % (Auto) Lymph % (Auto) [place] % (Auto) Eos % (Auto) Baso % (Auto) Lymph # (Auto) [place] # (Auto) Eos # (Auto) Baso # (Auto) Abs Immat Gran (auto) Absolute Neuts (auto) Absolute Nucleated RBC Nucleated RBC % (auto) PT INR APTT D-Dimer Sodium Potassium Chloride Carbon Dioxide Anion Gap BUN Creatinine Estim Creat Clear Calc Estimated GFR POC Glucose 149 H Random Glucose Calcium Magnesium Total Bilirubin Direct Bilirubin AST ALT Alkaline Phosphatase Troponin I High Sens B-Natriuretic Peptide Total Protein Albumin Triglycerides 178 Cholesterol 141 LDL Cholesterol, Calc 73 HDL Cholesterol 33 TSH 3.20 Urine Color Urine Appearance Urine pH Ur Specific [place] Urine Protein Urine Glucose (UA) Urine Ketones Urine Blood Urine Nitrite Ur Leukocyte Esterase Urine RBC Urine WBC Ur Squamous Epith Cells Urine Bacteria Urine Mucus Coronavirus (PCR) Influenza Type A (PCR) Influenza Type B (PCR) RSV RNA Qual (PCR) 10/19/20 10/19/20 10/19/20 03:00 09:04 09:57 WBC 11.7 H RBC 4.29 Hgb 12.0 Hct 39.0 MCV 90.9 MCH 28.0 MCHC 30.8 L RDW 16.0 Plt Count 189 MPV 10.1 Immature Gran % (Auto) 1.1 H Neut % (Auto) 73.3 H Lymph % (Auto) 18.4 L [place] % (Auto) 6.3 Eos % (Auto) 0.6 Baso % (Auto) 0.3 Lymph # (Auto) 2.1 [place] # (Auto) 0.7 Eos # (Auto) 0.1 Baso # (Auto) 0.0 Abs Immat Gran (auto) 0.13 H Absolute Neuts (auto) 8.6 H Absolute Nucleated RBC 0.000 Nucleated RBC % (auto) 0.0 PT INR APTT D-Dimer Sodium Potassium Chloride Carbon Dioxide Anion Gap BUN Creatinine Estim Creat Clear Calc Estimated GFR POC Glucose 61 Random Glucose Calcium Magnesium Total Bilirubin Direct Bilirubin AST ALT Alkaline Phosphatase Troponin I High Sens 22.9 H* B-Natriuretic Peptide Total Protein Albumin Triglycerides Cholesterol LDL Cholesterol, Calc HDL Cholesterol TSH Urine Color Urine Appearance Urine pH Ur Specific [place] Urine Protein Urine Glucose (UA) Urine Ketones Urine Blood Urine Nitrite Ur Leukocyte Esterase Urine RBC Urine WBC Ur Squamous Epith Cells Urine Bacteria Urine Mucus Coronavirus (PCR) Influenza Type A (PCR) Influenza Type B (PCR) RSV RNA Qual (PCR) 10/19/20 09:57 WBC RBC Hgb Hct MCV MCH MCHC RDW Plt Count MPV Immature Gran % (Auto) Neut % (Auto) Lymph % (Auto) [place] % (Auto) Eos % (Auto) Baso % (Auto) Lymph # (Auto) [place] # (Auto) Eos # (Auto) Baso # (Auto) Abs Immat Gran (auto) Absolute Neuts (auto) Absolute Nucleated RBC Nucleated RBC % (auto) PT INR APTT D-Dimer Sodium 141 Potassium 4.1 Chloride 100 Carbon Dioxide 31 H Anion Gap 14 BUN 17 H Creatinine 0.70 Estim Creat Clear Calc 106.1 Estimated GFR > 60 POC Glucose Random Glucose 90 Calcium 8.6 Magnesium 2.1 Total Bilirubin Direct Bilirubin AST ALT Alkaline Phosphatase Troponin I High Sens B-Natriuretic Peptide Total Protein Albumin Triglycerides Cholesterol LDL Cholesterol, Calc HDL Cholesterol TSH Urine Color Urine Appearance Urine pH Ur Specific [place] Urine Protein Urine Glucose (UA) Urine Ketones Urine Blood Urine Nitrite Ur Leukocyte Esterase Urine RBC Urine WBC Ur Squamous Epith Cells Urine Bacteria Urine Mucus Coronavirus (PCR) Influenza Type A (PCR) Influenza Type B (PCR) RSV RNA Qual (PCR) ECG Attestation: I personally reviewed and interpreted this ECG as follows: Interpretation: EKG shows sinus rhythm at 76/Min; incomplete left bundle-branch block pattern. This seems to be a chronic finding. Imaging Radiologist's impression: Impressions Chest X-Ray 10/18/20 15:46 IMPRESSION: No evidence for acute disease in the chest. Pulmonary Perfusion Imaging 10/19/20 08:41 IMPRESSION: Very low probability of pulmonary embolism. Assessment and Plan (1) Acute congestive heart failure: Status: Acute (2) Morbid obesity: Status: Acute (3) Type 2 diabetes mellitus with unspecified complications: Status: Acute (4) Essential hypertension: Status: Acute (5) Other and unspecified hyperlipidemia: Status: Acute High sensitivity troponins are borderline abnormal at 23, 25 and 22. Cardiac BNP is within normal limits at 55 but could be false negative. Clinically she is describing symptoms of congestive heart failure which is new onset. We will start with an echocardiogram for further evaluation. Empiric diuretics. Potentially could be a cardiomyopathy versus right heart failure from obesity. Will follow with you. Procedures Date of Service Date of Service: 10/19/20
[2020-10-19 11:54] LABS: Glucose, Whole Blood 104 mg/dL (60-115)
[2020-10-19 12:34] LABS: ABG Refer to POC result
[2020-10-19 12:34] LABS: ABG Base Excess 12.6 mmol/L; ABG HCO3 37 mmol/L (22-26); ABG pCO2 49 mmHg (32-45); ABG pCO2 TC 48 mmHg (32-45); ABG pH 7.49 (7.35-7.45); ABG pO2 88 mmHg (83-108); ABG pO2 TC 85 (83-108)
[2020-10-19] MEDS: Ibuprofen 800 MG TABLET PO (13:19)
--- NOTE | 2020-10-19 13:45 | MHC.CM.PN ---
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 SHE HAS NO SERVICES FOR HERSELF , SHE VOICED FRUSTRATION AT BEING IN THE ER FOR AL EXTENEDE PERIOFD OF THIME AND NOT COMING UP TO THE FLOOR UNTIL 8AM TIODAY , SHE DOES NTO KNOW WHAT THE CAUSE IS AND IS AWAITING TO SEE A HEART DOCTOR , SHE VIOICED THAT SHE IS FRUSTRted and wants to go home , i discussed this with patients bedside nurse. i offered patient vna servcies at discharge and she declined. discharge plan home with no services (offered vna and patient declined) pcp dr naman heredia [facility]
--- NOTE | 2020-10-19 14:28 | HO.PM.IMPN ---
Subjective Subjective Date of Service: 10/19/20 Interval History: the patient was seen and evaluated this morning Laying in bed, feels short of breath and dyspneic with minimal exertion Denies any fever, chills or chest pain No reported other overnight events. Systemic review: No fever, chills or weakness No chest pain, palpitation Reporting dyspnea on minimal exertion, feels mildly anxious No abdominal pain, nausea or vomiting No urinary symptoms No any rash or wounds Physical Exam Vital Signs: Vital Signs: Last Vital Signs Temp 97.9 F 10/19/20 11:56 Pulse 67 10/19/20 11:56 Resp 21 H 10/19/20 11:56 BP 149/64 H 10/19/20 11:56 Pulse Ox 96 10/19/20 11:56 Body Mass Index 55.2 Const: Other: Constitutional : Alert, oriented, in mild respiratory distress Neck : Normal inspection, Supple Cardiovascular : RRR, S1 S2, +1 bilateral lower extremity edema Respiratory : Decreased bilateral air entry mainly at the bases, no crackles, wheezes or rhonchi Gastrointestinal: soft, lax, Normal bowel sounds, Non tender Skin : Warm/Dry, No rash Neurological : Alert & oriented x3, No focal deficit Objective Data Current Medications Generic Name Dose Route Start Last Admin Trade Name Freq PRN Reason Stop Dose Admin Allopurinol 300 mg 10/19/20 09:00 10/19/20 09:47 Allopurinol 300 Mg Tablet PO Not Given DAILY [facility] Atorvastatin Calcium 10 mg 10/19/20 09:00 10/19/20 09:47 Atorvastatin Calcium 10 Mg Tablet PO 10 mg DAILY [facility] Administration Divalproex Sodium 500 mg 10/19/20 09:00 10/19/20 09:48 Divalproex Sodium Er 500 Mg Tab.Er.24h PO Not Given DAILY [facility] Furosemide 40 mg 10/19/20 18:00 Furosemide 40 Mg/4 Ml Vial IVPUSH BID@0900,1800 [facility] Protocol Gabapentin 800 mg 10/19/20 09:00 10/19/20 09:46 Gabapentin 400 Mg Capsule PO 800 mg DAILY [facility] Administration Ceftriaxone Sodium 1 gm/ 50 mls @ 100 mls/hr 10/18/20 22:15 10/19/20 00:53 Sodium Chloride IV Infused Q24H [facility] Infusion Ibuprofen 800 mg 10/19/20 08:12 10/19/20 13:19 Ibuprofen 800 Mg Tablet PO 800 mg TID PRN Administration Pain, Mild (Pain Scale 1-3) Insulin Glargine 40 unit 10/19/20 21:00 Insulin Glargine,Hum.Rec.Anlog 100 Unit/Ml 10 Ml Vial SUBCUT BEDTIME [facility] Insulin Human Lispro 0 unit 10/19/20 07:30 10/19/20 12:09 Insulin Lispro 100 Unit/Ml 3 Ml Vial SUBCUT Not Given QIDACHS [facility] Protocol Levothyroxine Sodium 75 mcg 10/19/20 06:30 10/19/20 09:38 Levothyroxine Sodium 75 Mcg Tablet PO Not Given DAILY@0630 [facility] Lorazepam 1 mg 10/19/20 09:00 10/19/20 09:47 Lorazepam 1 Mg Tablet PO Not Given TID [facility] Losartan Potassium 50 mg 10/19/20 09:00 10/19/20 09:47 Losartan Potassium 50 Mg Tablet PO 50 mg DAILY [facility] Administration Protocol Morphine Sulfate 1 mg 10/19/20 02:47 10/19/20 04:58 Morphine Sulfate 2 Mg/Ml Cartridge IVPUSH 1 mg Q4H PRN Administration Chest Pain Nitroglycerin 0.4 mg 10/18/20 22:07 Nitroglycerin 0.4 Mg Tab.Subl SUBLINGUAL Q5M PRN Chest Pain Omeprazole 20 mg 10/19/20 06:30 10/19/20 09:38 Omeprazole 20 Mg Capsule.Dr PO Not Given BID@0630,1630 [facility] Oxycodone HCl 10 mg 10/19/20 02:44 Oxycodone Hcl Immed Release 5 Mg Tablet PO TID PRN Pain, Severe (Pain Scale 7-10) Oxycodone HCl 40 mg 10/19/20 08:11 Oxycodone Hcl Er 40 Mg Tab.Er.12h PO TID PRN Pain, Severe (Pain Scale 7-10) Sodium Chloride 3 ml 10/19/20 00:00 10/19/20 09:46 0.9 % Sodium Chloride Flush 3 Ml Syringe IVFLUSH 3 ml QSHIFT [facility] Administration Labs CBC & Chem 7: 10/19/20 09:57 10/19/20 09:57 Microbiology Microbiology Results: Microbiology 10/18/20 19:47 Urine clean catch - Clean Catch Midstream Urine Culture - Preliminary Culture too young to evaluate. Assessment and Plan (1) CHF (congestive heart failure): Status: Acute Assessment and Plan: 70-year-old female with a past medical history of hypertension, hyperlipidemia, diabetes, hypothyroidism presented to the hospital with a chief complaint of shortness of breath/dyspnea on exertion Dyspnea Suspected to be secondary to CHF exacerbation, SALONI, ohs Pulmonary embolism ruled out with negative V/Q scan Continue Lasix 40 mg IV b.i.d. Daily intake and output; daily weights Cardiology input appreciated, continue diuresis and do an echo Pending Echocardiogram. To do overnight oximetry and repeat ABG Chest pain Resolved Patient had indeterminate troponins, trended flat EKG showed incomplete left bundle-branch block Waiting echo monitor on telemetry. Sublingual nitroglycerin p.r.n. for chest pain. Discussed with Cardiology, no need for anticoagulation Elevated D-dimer Negative VQ scan and Doppler ultrasound lower extremities Discontinue full-dose Lovenox Metabolic alkalosis With respiratory compensation To start Diamox Monitor HC03 Morbid obesity BMI of 55 Advised to lose weight Hypertension/hyperlipidemia Continue home medications Diabetes Insulin sliding scale Hypothyroidism Continue levothyroxine For all other chronic conditions, home medications will be continued DVT prophylaxis Lovenox the
--- NOTE | 2020-10-19 16:00 | CA_ITS ---
Transthoracic Echocardiogram Patient (Last, First, Middle): Chayo Capps, Gender: Female Date of : 1950 Age: 70 Procedure Date: 10/19/2020 Procedure Type: Transthoracic Echocardiogram Location: S3E Height: 162.56 cm Weight: 145.61 kg BSA: 2.39 m2 Heart Rate: bpm BP: 173 / 67 mmHg Business Reporter: DSG Referring MD: Luis F Escalera MD Symptoms: CHF Study Quality: Fair ECG Rhythm: Sinus Conclusions: - The left ventricular systolic function is normal. The visually estimated ejection fraction is between 55-60%. - There is mild aortic valve stenosis. - Mild pulmonary hypertension is present. Findings Left Ventricle Normal left ventricular cavity size. There is mildly increased left ventricular wall thickness. The left ventricular systolic function is normal. The visually estimated ejection fraction is between 55-60%. There is no evidence of regional wall motion abnormalities. E/E prime ratio is between 8 and 15 consistent with indeterminate filling pressures. Evidence suggests grade I (mild) diastolic dysfunction. Right Ventricle Normal right ventricular cavity size and systolic function. Atria Both atria are normal in size. Aortic Valve There is a normal trileaflet aortic valve. There is mild calcification of the aortic valve. There is mild aortic valve stenosis. The peak aortic velocity is 2.18 m/s with a calculated peak gradient of 19 mmHg. The mean gradient is 11 mmHg. The aortic valve area is 1.46 cm2. There is no aortic valve regurgitation. Mitral Valve The mitral valve appears normal. There is trace mitral valve regurgitation. There is no mitral valve stenosis. Pulmonic Valve The pulmonic valve was not well visualized. Tricuspid Valve There is mild tricuspid valve regurgitation. The right ventricular systolic pressure is 48 mmHg. Mild pulmonary hypertension is present. Great Vessels The aortic annulus, sinuses of valsalva, and asc aorta are normal in size. Venous The inferior vena cava is normal in size and collapses less than 50% with inspiration. Pericardium/Pleural There is no evidence of pericardial effusion. Prior Study Comparison No prior study available for comparison. Measurements 2D Linear Measurements IVSd: 1.14 0.6-0.9/0.6-1.0 cm LVIDd: 4.79 3.9-5.3/4.2-5.9 cm LVIDd Index: 2.00 2.4-3.2/2.2-3.1 cm/m2 LVIDs: 3.35 2.0-3.6 cm LVPWd: 1.17 0.7-1.1 cm Ao Root: 2.80 2.1-3.5 cm LA Diam: 4.40 2.7-3.8/3.0-4.0 cm LAIDs Index: 1.84 1.5-2.3 cm/m2 LV Mass: 257.93 67-162/88-224 g LV Mass Index: 107.92 43-95/49-115 g/m2 LVOT Diam: 2.10 3.0+(-)1.3 cm 2D Systolic Function EF 4C: 59.00 >55% EF 2C: 65.50 >55% Mitral Valve MV Pk E: 0.86 MV PK A: 0.84 MV Decel Time: 172.00 E/A: 1.00 E'Lateral: 5.44 E'Medial: 8.81 E/E' Med: 9.80 E/E' Lat: 15.90 PHT: 50.00 MVA PHT: 4.40 Decel [place]: 5.03 Aortic Valve AoV Pk Stevo: 2.18 AoV Mn Stevo: 1.61 AoV VTI: 0.52 AoV Pk Grad: 19.00 Aov Mn Grad: 11.00 DAVID Cont.VTI: 1.46 LVOT LVOT Pk Stevo: 0.97 LVOT Mn Stevo: 0.73 LVOT VTI: 0.22 LVOT Pk Grad: 4.00 LVOT Mn Grad: 2.00 LVOT Diam: 2.10 LVOT Area: 3.46 Diastolic Function MV Pk E: 0.86 MV Pk A: 0.84 E/A: 1.00 E'Medial: 8.81 E/E' Med: 9.80 E' Laterial: 5.44 E/E' Lat: 15.90 Tricuspid Valve TR Pk Stevo: 3.16 TR Pk Grad: 40.00 RA Press: 8.00 RVSP: 48.00 Great Vessels Aorta Ao Root-2D: 2.80 2.0-3.7 cm Ao Asc: 2.70 2.1-3.4 cm Updated in Other Vendor System with Status of Final Luis F Escalera MD electronically signed on 10/19/2020 3:45:06 PM with status of Final
[2020-10-19] MEDS: Omeprazole 20 MG CAPSULE.DR PO (16:05)
[2020-10-19] MEDS: acetaZOLAMIDE sodium 500 MG VIAL IVPUSH (16:10)
[2020-10-19 16:16] LABS: Glucose, Whole Blood 134 mg/dL (60-115)
[2020-10-19] MEDS: Acetaminophen 325 MG TABLET 650 MG PO (18:13)
[2020-10-19 20:21] LABS: Glucose, Whole Blood 173 mg/dL (60-115)
[2020-10-19] MEDS: Insulin Glargine,Hum.rec.anlog 100 UNIT/ML 10 ML VIAL 40 UNIT SUBCUT (21:03)
[2020-10-19] MEDS: LORazepam 1 MG TABLET PO (21:04)
[2020-10-20] VITALS (9 sets, daily range): BP systolic 108–127; BP diastolic 50–60; PULSE 66–80; RESP 20–22; TEMP 36.1–36.6; O2SAT 93–96
[2020-10-20] MEDS: Enoxaparin Sodium 40 MG/0.4 ML SYRINGE SUBCUT (06:12)
[2020-10-20] MEDS: Levothyroxine Sodium 75 MCG TABLET PO (06:12)
[2020-10-20] MEDS: Omeprazole 20 MG CAPSULE.DR PO ×2 (06:12→15:47)
[2020-10-20 07:49] LABS: Glucose, Whole Blood 51 mg/dL (60-115)
[2020-10-20 07:49] LABS: Glucose, Whole Blood 55 mg/dL (60-115)
[2020-10-20] MEDS: 0.9 % Sodium Chloride Flush 3 ML SYRINGE IVFLUSH ×3 (07:52→21:56)
[2020-10-20 08:14] LABS: Glucose, Whole Blood 91 mg/dL (60-115)
[2020-10-20] MEDS: allopurinoL 300 MG TABLET PO (10:03)
[2020-10-20] MEDS: Losartan Potassium 50 MG TABLET PO (10:03)
[2020-10-20] MEDS: Atorvastatin Calcium 10 MG TABLET PO (10:03)
[2020-10-20] MEDS: Gabapentin 400 MG CAPSULE 800 MG PO (10:03)
[2020-10-20] MEDS: LORazepam 1 MG TABLET PO ×2 (10:03→21:41)
[2020-10-20] MEDS: Divalproex Sodium ER 500 MG TAB.ER.24H PO (10:04)
[2020-10-20] MEDS: Furosemide 40 MG/4 ML VIAL IVPUSH ×2 (10:07→18:19)
--- NOTE | 2020-10-20 10:24 | MHC.CM.PN ---
NURSE OFFICE INSPECTOR NOTE ELECTRONIC MEDICAL RECORD [id number] ALONG WITH CASE DISCUSSED WITH STAFF NURSE AND MET WITH PATIENT ALONG WITH HOSPITALIST , PATIENT STILL VOICING SHE WANTS TO GO HOME , STRONGLY, SHE IS STILL ON OXYGEN AND APPEARS WEAK, CARDIOLOGY HAS EVALUATED HER FOR HER ACUTE CONGESTEIVE HEART FAILURE (NEW) RECOMMENDATIONS FOR ECHOCARDIO GRAM MONITOR CARDIAC LABS DIURETICS, CREDENTIALING COORDINATOR TO EVALUATE HER TODAY. PATIENT AT THIS TIME STILL DECLINES VNA AT DISCHARGE MILLWORK ESTIMATOR TO CONTINUE TO FOLLOW FOR DISCHARGE NEEDS AND FOLLOW UP
--- NOTE | 2020-10-20 10:39 | PC.NURSE ---
pt states respiratory made 2 attempts to collect ABG this am and could not.
--- NOTE | 2020-10-20 10:41 | P.CDIC_ITS ---
CDI Concurrent Query Service Date: 10/20/20 Documentation Clarification: Please clarify if you are treating a proba ble/suspected/likely or confirmed: Specifis: Acute diastolic and/or systolic CHF Acute on chronic diastolic and/or systolic CHF Chronic diastolic and/or systolic CHF Please specify if known or other Provider Response: Acute Diastolic CHF PLEASE DO NOT DELETE/MODIFY EXISTING CONTENT Additional information is needed in order to code to the highest accuracy and appropriate Severity of Illness (SOI). Please clarify the information noted below in your progress notes and discharge summary. Risk Factors/Clinical Indicators/Treatments CHF IV Lasix I & O's, Cardio consult Echo performed leg swelling, SOB, ROSE, orthopnea BNP 54 CDS: Irene Solis CCS, CDIS Contact Number: [phone] Please Review the information above and exercise your independent professional judgment in responding to the query. If you concur, pleas document in the PROGRESS NOTES and DISCHARGE SUMMARY. If you do not agree with the query, please document in the query above. THIS QUERY IS PART OF THE PERMANENT MEDICAL RECORD
--- NOTE | 2020-10-20 10:50 | HO.PM.IMPN ---
Subjective Subjective Date of Service: 10/20/20 Interval History: the patient was seen and evaluated this morning Sitting in her chair, feels little bit better today, still dyspneic with minimal exertion Overnight oximetry testing showed no episodes of hypoxemia Denies any fever, chills or chest pain No reported other overnight events. Systemic review: No fever, chills but feels generalized weakness No chest pain, palpitation Reporting dyspnea on minimal exertion, mildly anxious No abdominal pain, nausea or vomiting No urinary symptoms No any rash or wounds Physical Exam Vital Signs: Vital Signs: Last Vital Signs Temp 97.0 F 10/20/20 07:22 Pulse 80 10/20/20 10:03 Resp 22 H 10/20/20 07:22 BP 114/50 L 10/20/20 10:03 Pulse Ox 95 10/20/20 07:22 Body Mass Index 55.2 Const: Other: Constitutional : Alert, oriented, in mild respiratory distress Neck : Normal inspection, Supple Cardiovascular : RRR, S1 S2, +1 bilateral lower extremity edema Respiratory : Decreased bilateral air entry mainly at the bases, no crackles, wheezes or rhonchi Gastrointestinal: soft, lax, Normal bowel sounds, Non tender Skin : Warm/Dry, No rash Neurological : Alert & oriented x3, No focal deficit Objective Data Current Medications Generic Name Dose Route Start Last Admin Trade Name Rowdyq PRN Reason Stop Dose Admin Acetaminophen 650 mg 10/19/20 18:07 10/19/20 18:13 Acetaminophen 325 Mg Tablet PO 650 mg Q6H PRN Administration Pain, Mild (Pain Scale 1-3) Allopurinol 300 mg 10/19/20 09:00 10/20/20 10:03 Allopurinol 300 Mg Tablet PO 300 mg DAILY JACK Administration Atorvastatin Calcium 10 mg 10/19/20 09:00 10/20/20 10:03 Atorvastatin Calcium 10 Mg Tablet PO 10 mg DAILY JACK Administration Divalproex Sodium 500 mg 10/19/20 09:00 10/20/20 10:04 Divalproex Sodium Er 500 Mg Tab.Er.24h PO 500 mg DAILY JACK Administration Enoxaparin Sodium 40 mg 10/20/20 07:00 10/20/20 06:12 Enoxaparin Sodium 40 Mg/0.4 Ml Syringe SUBCUT 40 mg Q24H JACK Administration Furosemide 40 mg 10/19/20 18:00 10/20/20 10:07 Furosemide 40 Mg/4 Ml Vial IVPUSH 40 mg BID@0900,1800 [facility] Administration Protocol Gabapentin 800 mg 10/19/20 09:00 10/20/20 10:03 Gabapentin 400 Mg Capsule PO 800 mg DAILY [facility] Administration Ceftriaxone Sodium 1 gm/ 50 mls @ 100 mls/hr 10/18/20 22:15 10/19/20 22:44 Sodium Chloride IV Infused Q24H [facility] Infusion Ibuprofen 800 mg 10/19/20 08:12 10/19/20 13:19 Ibuprofen 800 Mg Tablet PO 800 mg TID PRN Administration Pain, Mild (Pain Scale 1-3) Insulin Glargine 25 unit 10/20/20 21:00 Insulin Glargine,Hum.Rec.Anlog 100 Unit/Ml 10 Ml Vial SUBCUT BEDTIME [facility] Insulin Human Lispro 0 unit 10/19/20 07:30 10/20/20 07:19 Insulin Lispro 100 Unit/Ml 3 Ml Vial SUBCUT Not Given QIDACHS [facility] Protocol Levothyroxine Sodium 75 mcg 10/19/20 06:30 10/20/20 06:12 Levothyroxine Sodium 75 Mcg Tablet PO 75 mcg DAILY@0630 [facility] Administration Lorazepam 1 mg 10/19/20 09:00 10/20/20 10:03 Lorazepam 1 Mg Tablet PO 1 mg TID [facility] Administration Losartan Potassium 50 mg 10/19/20 09:00 10/20/20 10:03 Losartan Potassium 50 Mg Tablet PO 50 mg DAILY [facility] Administration Protocol Morphine Sulfate 1 mg 10/19/20 02:47 10/19/20 04:58 Morphine Sulfate 2 Mg/Ml Cartridge IVPUSH 1 mg Q4H PRN Administration Chest Pain Nitroglycerin 0.4 mg 10/18/20 22:07 Nitroglycerin 0.4 Mg Tab.Subl SUBLINGUAL Q5M PRN Chest Pain Omeprazole 20 mg 10/19/20 06:30 10/20/20 06:12 Omeprazole 20 Mg Capsule.Dr PO 20 mg BID@0630,1630 [facility] Administration Oxycodone HCl 10 mg 10/19/20 02:44 10/19/20 21:06 Oxycodone Hcl Immed Release 5 Mg Tablet PO 10 mg TID PRN Administration Pain, Severe (Pain Scale 7-10) Oxycodone HCl 40 mg 10/19/20 08:11 Oxycodone Hcl Er 40 Mg Tab.Er.12h PO TID PRN Pain, Severe (Pain Scale 7-10) Sodium Chloride 3 ml 10/19/20 00:00 10/20/20 07:52 0.9 % Sodium Chloride Flush 3 Ml Syringe IVFLUSH 3 ml QSHIFT JACK Administration Labs CBC & Chem 7: 10/19/20 09:57 10/19/20 09:57 Microbiology Microbiology Results: Microbiology 10/18/20 19:47 Urine clean catch - Clean Catch Midstream Urine Culture - Final Assessment and Plan (1) CHF (congestive heart failure): Status: Acute Assessment and Plan: 70-year-old female with a past medical history of hypertension, hyperlipidemia, diabetes, hypothyroidism presented to the hospital with a chief complaint of shortness of breath/dyspnea on exertion Acute diastolic CHF exacerbation Could be secondary to SALONI, OHS Pulmonary embolism ruled out with negative V/Q scan Refused blood work today Continue Lasix 40 mg IV b.i.d. Daily intake and output; daily weights Cardiology input appreciated, continue diuresis and do an echo Echo showing normal ejection fraction overnight oximetry negative for hypoxia, patient refused repeat ABG To get pulmonology evaluation Chest pain Resolved Patient had indeterminate troponins, trended flat EKG showed incomplete left bundle-branch block monitor on telemetry. Sublingual nitroglycerin p.r.n. for chest pain. Discussed with Cardiology, no need for anticoagulation Elevated D-dimer Negative VQ scan and Doppler ultrasound lower extremities Discontinue full-dose Lovenox Metabolic alkalosis With respiratory compensation Received a dose of Diamox Monitor HC03, refused lab work this morning Morbid obesity BMI of 55 Advised to lose weight Hypertension/hyperlipidemia Continue home medications Diabetes Insulin sliding scale Hypothyroidism Continue levothyroxine For all other chronic conditions, home medications will be continued DVT prophylaxis Lovenox
[2020-10-20 11:44] LABS: Glucose, Whole Blood 107 mg/dL (60-115)
--- NOTE | 2020-10-20 12:34 | PM.PNCARD ---
Subjective Subjective Date of Service: 10/20/20 Interval history: Feels about the same. Short of breath and leg swelling. Review of Systems Review of Systems Yes all other systems are reviewed and are negative Cardiovascular: Reports as per HPI, Reports no additional cardiovascular complaints, Denies acrocyanosis, Denies cool extremities, Denies painful fingertips, Denies chest pain, Denies chest pain at rest, Denies diaphoresis, Denies syncope, Denies irregular heart rhythm, Denies claudication, Reports leg edema, Denies lightheadedness, Denies palpitations and Reports dyspnea Respiratory: Reports dyspnea Denies syncope Endocrine: Denies palpitations Physical Exam Vital Signs: Last Vital Signs Temp 97.9 F 10/20/20 11:15 Pulse 80 10/20/20 11:16 Resp 20 10/20/20 11:15 BP 114/50 L 10/20/20 11:16 Pulse Ox 94 10/20/20 11:15 Body Mass Index 55.2 Const General: cooperative, comfortable and no acute distress Orientation/consciousness: patient oriented x3 HENMO Other: Unremarkable Neck Neck: Yes normal visual inspection Chest Chest palpation & inspection: normal inspection of the chest Resp Auscultation: clear to auscultation bilaterally, no crackles and no wheezes Cardio Jugular venous distension: no JVD Palpation: normal PMI Heart sounds: S1 normal heart sound present, S2 normal heart sound present, no gallops, Murmur heart sound present systolic early, II/ and at the right sternal border and no rubs GI Palpation (GI): Soft to palpation Back/Spine/Pelvis Other: unremarkable Skin General skin exam: no rashes or lesions noted Neuro General: patient oriented x3 Extrem General: Yes pedal edema (2+) Psych Mental Status: mental status grossly normal Results Labs and Meds Result diagrams: 10/19/20 09:57 10/19/20 09:57 Lab results: Laboratory Results - last 24 hr 10/19/20 10/19/20 10/19/20 12:26 16:10 20:17 O2 Saturation 96.0 ABG pH at Pt Temp 7.49 H ABG pH (Temp Correct) 7.50 H ABG pCO2 at Pt Temp 49 H ABG pCO2 (Temp Corrct 48 H ABG pO2 at Pt Temp 88 ABG pO2 (Temp Correct 85 ABG HCO3 37 H ABG Base Excess (Actual) 12.6 POC Glucose 134 H 173 H 10/20/20 10/20/20 10/20/20 07:18 07:42 08:10 O2 Saturation ABG pH at Pt Temp ABG pH (Temp Correct) ABG pCO2 at Pt Temp ABG pCO2 (Temp Corrct ABG pO2 at Pt Temp ABG pO2 (Temp Correct ABG HCO3 ABG Base Excess (Actual) POC Glucose 51 L* 55 L* 91 10/20/20 11:14 O2 Saturation ABG pH at Pt Temp ABG pH (Temp Correct) ABG pCO2 at Pt Temp ABG pCO2 (Temp Corrct ABG pO2 at Pt Temp ABG pO2 (Temp Correct ABG HCO3 ABG Base Excess (Actual) POC Glucose 107 Progress Note: A&P Assessment and plan (1) Acute right heart failure: Status: Acute (2) Morbid obesity: Status: Acute (3) Type 2 diabetes mellitus with unspecified complications: Status: Acute (4) Essential hypertension: Status: Acute (5) Other and unspecified hyperlipidemia: Status: Acute (6) Pulmonary hypertension: Status: Acute Assessment and Plan: High sensitivity troponins are borderline abnormal at 23, 25 and 22. Cardiac BNP is within normal limits at 55 but could be false negative. Clinically she is describing symptoms of congestive heart failure which is new onset. She states that she used to weigh around 280 lb. Possibly about 40 lb weight gain. Could have right heart failure related to obesity. Possible undiagnosed sleep apnea. Empiric diuretics. Will need outpatient sleep study. Aggressive risk factor modification. She states due to back pain she cannot exercise or lose weight easily. Fall Risk Details Current Medications: Current Medications Generic Name Dose Route Start Last Admin Trade Name Freq PRN Reason Stop Dose Admin Acetaminophen 650 mg 10/19/20 18:07 10/19/20 18:13 Acetaminophen 325 Mg Tablet PO 650 mg Q6H PRN Administration Pain, Mild (Pain Scale 1-3) Allopurinol 300 mg 10/19/20 09:00 10/20/20 10:03 Allopurinol 300 Mg Tablet PO 300 mg DAILY JACK Administration Atorvastatin Calcium 10 mg 10/19/20 09:00 10/20/20 10:03 Atorvastatin Calcium 10 Mg Tablet PO 10 mg DAILY JACK Administration Divalproex Sodium 500 mg 10/19/20 09:00 10/20/20 10:04 Divalproex Sodium Er 500 Mg Tab.Er.24h PO 500 mg DAILY AJCK Administration Enoxaparin Sodium 40 mg 10/20/20 07:00 10/20/20 06:12 Enoxaparin Sodium 40 Mg/0.4 Ml Syringe SUBCUT 40 mg Q24H JACK Administration Furosemide 40 mg 10/19/20 18:00 10/20/20 10:07 Furosemide 40 Mg/4 Ml Vial IVPUSH 40 mg BID@0900,1800 [facility] Administration Protocol Gabapentin 800 mg 10/19/20 09:00 10/20/20 10:03 Gabapentin 400 Mg Capsule PO 800 mg DAILY [facility] Administration Ceftriaxone Sodium 1 gm/ 50 mls @ 100 mls/hr 10/18/20 22:15 10/19/20 22:44 Sodium Chloride IV Infused Q24H [facility] Infusion Ibuprofen 800 mg 10/19/20 08:12 10/19/20 13:19 Ibuprofen 800 Mg Tablet PO 800 mg TID PRN Administration Pain, Mild (Pain Scale 1-3) Insulin Glargine 25 unit 10/20/20 21:00 Insulin Glargine,Hum.Rec.Anlog 100 Unit/Ml 10 Ml Vial SUBCUT BEDTIME [facility] Insulin Human Lispro 0 unit 10/19/20 07:30 10/20/20 11:45 Insulin Lispro 100 Unit/Ml 3 Ml Vial SUBCUT Not Given QIDACHS [facility] Protocol Levothyroxine Sodium 75 mcg 10/19/20 06:30 10/20/20 06:12 Levothyroxine Sodium 75 Mcg Tablet PO 75 mcg DAILY@0630 [facility] Administration Lorazepam 1 mg 10/19/20 09:00 10/20/20 10:03 Lorazepam 1 Mg Tablet PO 1 mg TID [facility] Administration Losartan Potassium 50 mg 10/19/20 09:00 10/20/20 10:03 Losartan Potassium 50 Mg Tablet PO 50 mg DAILY [facility] Administration Protocol Morphine Sulfate 1 mg 10/19/20 02:47 10/19/20 04:58 Morphine Sulfate 2 Mg/Ml Cartridge IVPUSH 1 mg Q4H PRN Administration Chest Pain Nitroglycerin 0.4 mg 10/18/20 22:07 Nitroglycerin 0.4 Mg Tab.Subl SUBLINGUAL Q5M PRN Chest Pain Omeprazole 20 mg 10/19/20 06:30 10/20/20 06:12 Omeprazole 20 Mg Capsule. PO 20 mg BID@0630,1630 [facility] Administration Oxycodone HCl 10 mg 10/19/20 02:44 10/19/20 21:06 Oxycodone Hcl Immed Release 5 Mg Tablet PO 10 mg TID PRN Administration Pain, Severe (Pain Scale 7-10) Oxycodone HCl 40 mg 10/19/20 08:11 Oxycodone Hcl Er 40 Mg Tab.Er.12h PO TID PRN Pain, Severe (Pain Scale 7-10) Sodium Chloride 3 ml 10/19/20 00:00 10/20/20 07:52 0.9 % Sodium Chloride Flush 3 Ml Syringe IVFLUSH 3 ml QSHIFT [facility] Administration Time Spent With Patient Time: Total time spent is greater than 50% in coordination of care (as documented) at patient's floor/unit and/or counseling patient: Time with patient: less than 15 minutes Procedures Date of Service Date of Service: 10/20/20
--- NOTE | 2020-10-20 14:48 | PC.NURSE ---
pt ambulatory in room and then in hallway with walker. She has steady gait and no shortness of breath.
[2020-10-20 16:38] LABS: Glucose, Whole Blood 168 mg/dL (60-115)
[2020-10-20 20:40] LABS: Glucose, Whole Blood 160 mg/dL (60-115)
[2020-10-20] MEDS: Insulin Glargine,Hum.rec.anlog 100 UNIT/ML 10 ML VIAL 25 UNIT SUBCUT (21:41)
[2020-10-20] MEDS: cefTRIAXone sodium 1 GM in 0.9 % Sodium Chloride 50 ML IV (21:49)
[2020-10-21 03:22] VITALS: BP 138/64; PULSE 76; RESP 18; TEMP 36.1; O2SAT 95
[2020-10-21] MEDS: Levothyroxine Sodium 75 MCG TABLET PO (06:04)
[2020-10-21] MEDS: Enoxaparin Sodium 40 MG/0.4 ML SYRINGE SUBCUT (06:04)
[2020-10-21] MEDS: Omeprazole 20 MG CAPSULE.DR PO (06:04)
[2020-10-21 06:43] LABS: Glucose, Whole Blood 96 mg/dL (60-115)
[2020-10-21 06:48] LABS: Hematocrit 39.4 % (37-47); Hemoglobin 11.9 g/dl (12.0-16.0); Mean Corpuscular HGB Conc 30.2 g/dl (31.0-35.0); Mean Corpuscular Hemoglobin 27.4 pg (27.0-33.0); Mean Corpuscular Volume 90.6 fL (80-98); Mean Platelet Volume 10.2 fL (9.4-12.3); Platelet Count 229 X10*3/uL (160-400); Red Blood Count 4.35 X10*6/uL (4.20-5.50); Red Cell Distribution Width 15.9 % (11.0-16.0); White Blood Count 12.5 X10*3/uL (4.8-10.8)
[2020-10-21 07:01] LABS: Anion Gap 14 (12-20); Blood Urea Nitrogen 20 mg/dL (9-16); Calcium 8.4 mg/dL (8.4-10.2); Carbon Dioxide 31 mmol/L (22-29); Chloride 99 mmol/L (96-108); Creatinine Clr Calc Pharmacy 100.4; Estimated Glomerular Filt Rate > 60; Glucose Random 83 mg/dL (60-115); Potassium 3.8 mmol/L (3.3-5.1); Sodium 140 mmol/L (135-145)
[2020-10-21 07:14] VITALS: BP 118/46; PULSE 75; RESP 18; TEMP 36.7; O2SAT 98
[2020-10-21] MEDS: 0.9 % Sodium Chloride Flush 3 ML SYRINGE IVFLUSH (07:37)
[2020-10-21 07:45] LABS: Glucose, Whole Blood 90 mg/dL (60-115)
--- NOTE | 2020-10-21 08:50 | PM.CNPUL ---
History of Present Illness History of Present Illness Consult date: 10/21/20 Chief complaint: CHF Narrative: 70-year-old female with a past medical history of hypertension, hyperlipidemia, diabetes, hypothyroidism, contrast allergy presented to the hospital with a chief complaint of shortness of breath. Patient reported that over the past 4 days she has been having increased shortness of breath associated with dyspnea on exertion. Patient mentioned she is also short of breath at rest. Has orthopnea and PND as well. Noted leg swelling. Denies any chest pain palpitations. Denies any numbness tingling. Denies any fever chills cough and/or patient reports that patient had chronic home left-sided lower rib pain which worsens on deep inspiration. In the eR the EKG showed incomplete left bundle branch block. to have slightly elevated troponin of 23.2 followed by 25.21. The patient was placed on oxygen and treated for CHF. She did undergo a CT scan of the chest demonstrating emphysema as well as a stable 8 mm pulmonary nodule. the patient did have an overnight oximetry that demonstrating no significant hypoxemia. However, the patient does have daytime drowsiness with an elevated Reform score of 12/24. The patient also has intermittent headaches and also can wake up short of breath at times. She is not sure if she snores. At this point the patient does need to have a sleep study. On examination she also has wheezing. Therefore will start her on a long-acting muscarinic antagonist since she has had bad reactions to beta agonist therapy. She may also benefit from inhaled corticosteroid. Review of Systems Constitutional: Constitutional: Reports daytime sleepiness, Reports difficulty sleeping and Denies night sweats ENT: Denies change in voice, Denies lip swelling, Denies mouth pain, Reports nasal congestion, Reports nasal discharge and Denies tongue swelling Cardiovascular: Cardiovascular: Denies chest pain and Reports leg edema Respiratory: Respiratory: Reports cough and Reports wheezing Gastrointestinal: Gastrointestinal: Denies abdominal pain Musculoskeletal: Musculoskeletal: Denies no additional musculoskeletal complaints Neurologic: Denies Neuro-related abnormal movements Psychiatric: Psychiatric: Denies no additional psychiatric complaints Hematologic/Lymphatic: Hematologic/Lymphatic: Denies easy bleeding and Denies lymphadenopathy Allergic/Immunologic: Allergic/Immunologic: Denies lip swelling, Denies tongue swelling and Reports wheezing PMFSH Past Medical History Medical History (Updated 10/21/20 @ 08:56 by Rosalio Leger MD) COPD (chronic obstructive pulmonary disease) Diabetes Essential hypertension GERD (gastroesophageal reflux disease) HTN (hypertension) Hypothyroid Other and unspecified hyperlipidemia Pulmonary nodule Type 2 diabetes mellitus with unspecified complications Social History Social History (System 10/20/20 @ 15:13 by Verónica Godwin) Household Members: Friend(s) Housing: House Do you presently have visiting nurse or other home services: No Alcohol intake: never Cigarette Packs Per Day: 3 Cigarettes Per Day: 60.0 Years Smoked: 30 Second Hand Smoke Exposure: No Substance Use Type: Painkillers service: No Current occupational status: employed Meds Allergies Allergy/AdvReac Type Severity Reaction Status Date / Time Iodinated Contrast Media Allergy Severe DYSPNEA,INTERNAL Unverified 10/20/20 15:13 [IV Dye, Iodine Containing] HIVES-THROAT CLOSES Penicillins Allergy Mild RASH Unverified 10/20/20 15:13 prednisone [Prednisone] Allergy Mild BURNING Unverified 10/20/20 15:13 SKIN,ITCHY Sulfa (Sulfonamide Allergy Mild ITCH Unverified 10/20/20 15:13 Antibiotics) [Sulfa (Sulfonamides)] latex [LATEX] Allergy Unknown HIVES,ITCH Unverified 10/20/20 15:13 metoprolol [METOPROLOL] Allergy Unknown RASH,ITCHIN Unverified 10/20/20 15:13 G penicillin V Allergy Unknown Verified 10/20/20 15:13 fish derived [fish] Allergy Anaphylaxis Verified 10/20/20 15:13 sumatriptan [From Imitrex] AdvReac Mild CP Unverified 10/20/20 15:13 antibotics Allergy Unknown Uncoded 10/20/20 15:13 Cortisone injection Allergy Unknown Uncoded 10/20/20 15:13 fish Allergy Unknown Uncoded 10/20/20 15:13 IVP dye Allergy Unknown Uncoded 10/20/20 15:13 latex gloves Allergy Unknown Uncoded 10/20/20 15:13 SEAFOOD Allergy Unknown THROAT Uncoded 10/20/20 15:13 CLOSES, SWELLING steroids Allergy Unknown Uncoded 10/20/20 15:13 Active Medications: Current Medications Generic Name Dose Route Start Last Admin Trade Name Freq PRN Reason Stop Dose Admin Acetaminophen 650 mg 10/19/20 18:07 10/19/20 18:13 Acetaminophen 325 Mg Tablet PO 650 mg Q6H PRN Administration Pain, Mild (Pain Scale 1-3) Allopurinol 300 mg 10/19/20 09:00 10/20/20 10:03 Allopurinol 300 Mg Tablet PO 300 mg DAILY JACK Administration Atorvastatin Calcium 10 mg 10/19/20 09:00 10/20/20 10:03 Atorvastatin Calcium 10 Mg Tablet PO 10 mg DAILY JACK Administration Divalproex Sodium 500 mg 10/19/20 09:00 10/20/20 10:04 Divalproex Sodium Er 500 Mg Tab.Er.24h PO 500 mg DAILY JACK Administration Enoxaparin Sodium 40 mg 10/20/20 07:00 10/21/20 06:04 Enoxaparin Sodium 40 Mg/0.4 Ml Syringe SUBCUT 40 mg Q24H JACK Administration Furosemide 40 mg 10/19/20 18:00 10/20/20 18:19 Furosemide 40 Mg/4 Ml Vial IVPUSH 40 mg BID@0900,1800 [facility] Administration Protocol Gabapentin 800 mg 10/19/20 09:00 10/20/20 10:03 Gabapentin 400 Mg Capsule PO 800 mg DAILY JACK Administration Ceftriaxone Sodium 1 gm/ 50 mls @ 100 mls/hr 10/18/20 22:15 10/20/20 22:35 Sodium Chloride IV Infused Q24H JACK Infusion Ibuprofen 800 mg 10/19/20 08:12 10/19/20 13:19 Ibuprofen 800 Mg Tablet PO 800 mg TID PRN Administration Pain, Mild (Pain Scale 1-3) Insulin Glargine 25 unit 10/20/20 21:00 10/20/20 21:41 Insulin Glargine,Hum.Rec.Anlog 100 Unit/Ml 10 Ml Vial SUBCUT 25 unit BEDTIME JACK Administration Insulin Human Lispro 0 unit 10/19/20 07:30 10/21/20 07:37 Insulin Lispro 100 Unit/Ml 3 Ml Vial SUBCUT Not Given QIDACHS [facility] Protocol Levothyroxine Sodium 75 mcg 10/19/20 06:30 10/21/20 06:04 Levothyroxine Sodium 75 Mcg Tablet PO 75 mcg DAILY@0630 JACK Administration Lorazepam 1 mg 10/19/20 09:00 10/20/20 21:41 Lorazepam 1 Mg Tablet PO 1 mg TID JACK Administration Losartan Potassium 50 mg 10/19/20 09:00 10/20/20 10:03 Losartan Potassium 50 Mg Tablet PO 50 mg DAILY JACK Administration Protocol Morphine Sulfate 1 mg 10/19/20 02:47 10/19/20 04:58 Morphine Sulfate 2 Mg/Ml Cartridge IVPUSH 1 mg Q4H PRN Administration Chest Pain Nitroglycerin 0.4 mg 10/18/20 22:07 Nitroglycerin 0.4 Mg Tab.Subl SUBLINGUAL Q5M PRN Chest Pain Omeprazole 20 mg 10/19/20 06:30 10/21/20 06:04 Omeprazole 20 Mg Capsule.Dr PO 20 mg BID@0630,1630 [facility] Administration Oxycodone HCl 10 mg 10/19/20 02:44 10/19/20 21:06 Oxycodone Hcl Immed Release 5 Mg Tablet PO 10 mg TID PRN Administration Pain, Severe (Pain Scale 7-10) Oxycodone HCl 40 mg 10/19/20 08:11 Oxycodone Hcl Er 40 Mg Tab.Er.12h PO TID PRN Pain, Severe (Pain Scale 7-10) Sodium Chloride 3 ml 10/19/20 00:00 10/21/20 07:37 0.9 % Sodium Chloride Flush 3 Ml Syringe IVFLUSH 3 ml QSHIFT [facility] Administration Home Medications Medication Instructions Recorded Confirmed Last Taken Type allopurinol 1 tab PO BEDTIME 10/18/20 10/19/20 Unknown History atorvastatin 1 tab PO DAILY 10/18/20 10/18/20 Unknown History divalproex 1 tab PO DAILY 10/18/20 10/19/20 Unknown History furosemide 1 tab PO DAILY 10/18/20 10/18/20 Unknown History gabapentin 1 tab PO DAILY 10/18/20 10/19/20 Unknown History glipizide 10 mg PO BID 10/18/20 10/18/20 Unknown History ibuprofen 1 tab PO TID PRN 10/18/20 10/18/20 Unknown History insulin aspart U-100 [Novolog See Rx Instructions .ROUTE .COMPLEX 10/18/20 10/18/20 Unknown History U-100 Insulin aspart] insulin degludec [Tresiba 60 unit SUBCUT DAILY 10/18/20 10/19/20 Unknown History FlexTouch U-100] insulin syringe-needle U-100 [Easy 10/18/20 10/18/20 Unknown History Touch Insulin Syringe] levothyroxine [Euthyrox] 1 tab PO DAILY 10/18/20 10/18/20 Unknown History lorazepam 1 tab PO TID 10/18/20 10/18/20 Unknown History losartan 1 tab PO DAILY 10/18/20 10/18/20 Unknown History metronidazole 1 applic TOPICAL BID PRN 10/18/20 10/18/20 Unknown History omeprazole 1 cap PO BID 10/18/20 10/18/20 Unknown History oxycodone 1 tab PO TID PRN 10/18/20 10/18/20 Unknown History oxycodone [OxyContin] 1 tab PO TID PRN 10/18/20 10/18/20 Unknown History insulin degludec [Tresiba 56 unit SUBCUT BEDTIME 10/19/20 10/19/20 Unknown History FlexTouch U-100] Physical Exam Vital Signs: Vital Signs: Last Vital Signs Temp 98.0 F 10/21/20 07:14 Pulse 75 10/21/20 07:14 Resp 18 10/21/20 07:14 BP 118/46 L 10/21/20 07:14 Pulse Ox 98 10/21/20 07:14 Body Mass Index 55.2 Const: General: alert Neck: Neck: Yes normal visual inspection, Yes full ROM and Yes no lymphadenopathy Chest: Chest palpation & inspection: normal inspection of the chest Resp: Auscultation: wheezes and diminished lung sounds Cardio: Rate: regular rate Rhythm: regular rhythm Heart sounds: S1 normal heart sound present and S2 normal heart sound present GI: Palpation (GI): Soft to palpation and nontender Auscultation: normal bowel sounds : General: Yes no CVA tenderness Back/Spine/Pelvis: Back: no CVA tenderness Skin: General skin exam: rashes and/or lesions noted Extrem: Right upper extremity: edema Results Laboratory Findings CBC and BMP: 10/21/20 06:02 10/21/20 06:02 ABG, PT/INR, D-dimer: PT/INR, D-dimer PT 12.7 SEC (10.8-13.0) 10/18/20 16:24 INR 1.1 (0.9-1.1) 10/18/20 16:24 D-Dimer 509 NG/ML 10/18/20 16:24 Abnormal lab findings: Abnormal Labs 10/18/20 10/18/20 10/18/20 16:24 16:24 16:24 WBC 11.9 H RBC 4.15 L Hgb 11.7 L MCHC Immature Gran % (Auto) 1.4 H Neut % (Auto) Lymph % (Auto) Abs Immat Gran (auto) 0.17 H Absolute Neuts (auto) 8.7 H ABG pH at Pt Temp ABG pH (Temp Correct) ABG pCO2 at Pt Temp ABG pCO2 (Temp Corrct ABG HCO3 Carbon Dioxide 34 H Anion Gap 11 L BUN POC Glucose AST 35 H Troponin I High Sens 23.2 H* Albumin 3.3 L Urine pH Ur Leukocyte Esterase Urine WBC 10/18/20 10/18/20 10/18/20 19:25 19:47 21:12 WBC RBC Hgb MCHC Immature Gran % (Auto) Neut % (Auto) Lymph % (Auto) Abs Immat Gran (auto) Absolute Neuts (auto) ABG pH at Pt Temp ABG pH (Temp Correct) ABG pCO2 at Pt Temp ABG pCO2 (Temp Corrct ABG HCO3 Carbon Dioxide Anion Gap BUN POC Glucose 149 H AST Troponin I High Sens 25.3 H* Albumin Urine pH 8.5 H Ur Leukocyte Esterase TRACE H Urine WBC 15-29 H 10/19/20 10/19/20 10/19/20 03:00 09:57 09:57 WBC 11.7 H RBC Hgb MCHC 30.8 L Immature Gran % (Auto) 1.1 H Neut % (Auto) 73.3 H Lymph % (Auto) 18.4 L Abs Immat Gran (auto) 0.13 H Absolute Neuts (auto) 8.6 H ABG pH at Pt Temp ABG pH (Temp Correct) ABG pCO2 at Pt Temp ABG pCO2 (Temp Corrct ABG HCO3 Carbon Dioxide 31 H Anion Gap BUN 17 H POC Glucose AST Troponin I High Sens 22.9 H* Albumin Urine pH Ur Leukocyte Esterase Urine WBC 10/19/20 10/19/20 10/19/20 12:26 16:10 20:17 WBC RBC Hgb MCHC Immature Gran % (Auto) Neut % (Auto) Lymph % (Auto) Abs Immat Gran (auto) Absolute Neuts (auto) ABG pH at Pt Temp 7.49 H ABG pH (Temp Correct) 7.50 H ABG pCO2 at Pt Temp 49 H ABG pCO2 (Temp Corrct 48 H ABG HCO3 37 H Carbon Dioxide Anion Gap BUN POC Glucose 134 H 173 H AST Troponin I High Sens Albumin Urine pH Ur Leukocyte Esterase Urine WBC 10/20/20 10/20/20 10/20/20 07:18 07:42 16:22 WBC RBC Hgb MCHC Immature Gran % (Auto) Neut % (Auto) Lymph % (Auto) Abs Immat Gran (auto) Absolute Neuts (auto) ABG pH at Pt Temp ABG pH (Temp Correct) ABG pCO2 at Pt Temp ABG pCO2 (Temp Corrct ABG HCO3 Carbon Dioxide Anion Gap BUN POC Glucose 51 L* 55 L* 168 H AST Troponin I High Sens Albumin Urine pH Ur Leukocyte Esterase Urine WBC 10/20/20 10/21/20 10/21/20 20:25 06:02 06:02 WBC 12.5 H RBC Hgb 11.9 L MCHC 30.2 L Immature Gran % (Auto) Neut % (Auto) Lymph % (Auto) Abs Immat Gran (auto) Absolute Neuts (auto) ABG pH at Pt Temp ABG pH (Temp Correct) ABG pCO2 at Pt Temp ABG pCO2 (Temp Corrct ABG HCO3 Carbon Dioxide 31 H Anion Gap BUN 20 H POC Glucose 160 H AST Troponin I High Sens Albumin Urine pH Ur Leukocyte Esterase Urine WBC Microbiology: Microbiology 10/18/20 19:47 Urine clean catch - Clean Catch Midstream Urine Culture - Final Assessment and Plan (1) Dyspnea: Qualifiers: Dyspnea type: dyspnea on exertion Qualified Code(s): R06.00 - Dyspnea, unspecified Status: Acute (2) Pulmonary hypertension: Status: Acute (3) COPD (chronic obstructive pulmonary disease): Qualifiers: COPD type: emphysema Emphysema type: centrilobular Qualified Code(s): J43.2 - Centrilobular emphysema Status: Acute (4) Pulmonary nodule: Status: Acute Start Spiriva No LORI/LABA due to adverse effects Diuresis as tolerated Oxygen to keep pox>90% Will set up f/u as an outpt for PFTs/PSG/serial imaging Procedures Date of Service Date of Service: 10/21/20
[2020-10-21] MEDS: Gabapentin 400 MG CAPSULE 800 MG PO (10:18)
[2020-10-21] MEDS: Divalproex Sodium ER 500 MG TAB.ER.24H PO (10:18)
[2020-10-21] MEDS: allopurinoL 300 MG TABLET PO (10:18)
[2020-10-21] MEDS: Furosemide 40 MG/4 ML VIAL IVPUSH (10:18)
[2020-10-21 10:19] VITALS: BP 118/46; PULSE 75
[2020-10-21] MEDS: Losartan Potassium 50 MG TABLET PO (10:19)
[2020-10-21] MEDS: Atorvastatin Calcium 10 MG TABLET PO (10:19)
[2020-10-21 11:20] VITALS: BP 116/58; PULSE 81; RESP 19; TEMP 36.8; O2SAT 93
[2020-10-21 11:31] LABS: Glucose, Whole Blood 151 mg/dL (60-115)
[2020-10-21 11:40] VITALS: BP 116/58; PULSE 81; O2SAT 93
--- NOTE | 2020-10-21 11:57 | PM.DS ---
DS: Providers Provider Date of Service: 10/21/20 <AURELIA Gordon - Last Filed: 10/21/20 12:47> Date of admission: 10/18/20 22:07 <AURELIA Gordon - Last Filed: 10/21/20 12:47> Primary care physician: Rayray Wright MD <AURELIA Gordon - Last Filed: 10/21/20 12:47> Consults: 10/18/20 22:10 Consult to Cardiology Routine Consulting Provider: Luis F Escalera Reason for consultation: CHF 10/19/20 10:37 Consult Respiratory Therapy Routine Reason for consultation: Overnight Oximetry for hypoxia eval. 10/20/20 10:05 Consult to Pulmonology Routine Consulting Provider: Rosalio Leger Reason for consultation: Dyspnea 2/2 CHF likely [facility]ONI\OSH for your kind eval <AURELIA Gordon - Last Filed: 10/21/20 12:47> DS: Diagnosis Discharge Diagnosis (1) Acute congestive heart failure: Status: Acute <AURELIA Gordon - Last Filed: 10/21/20 12:47> (2) Pulmonary hypertension: Status: Acute <AURELIA Gordon - Last Filed: 10/21/20 12:47> (3) COPD (chronic obstructive pulmonary disease): Status: Acute <AURELIA Gordon - Last Filed: 10/21/20 12:47> DS: Medications Discharge Medications Home Medications: Home Medications Medication Instructions Recorded Confirmed allopurinol 1 tab PO BEDTIME 10/18/20 10/19/20 atorvastatin 1 tab PO DAILY 10/18/20 10/18/20 divalproex 1 tab PO DAILY 10/18/20 10/19/20 furosemide 1 tab PO DAILY 10/18/20 10/18/20 gabapentin 1 tab PO DAILY 10/18/20 10/19/20 glipizide 10 mg PO BID 10/18/20 10/18/20 ibuprofen 1 tab PO TID PRN 10/18/20 10/18/20 insulin aspart U-100 [Novolog See Rx Instructions .ROUTE .COMPLEX 10/18/20 10/18/20 U-100 Insulin aspart] insulin degludec [Tresiba 60 unit SUBCUT DAILY 10/18/20 10/19/20 FlexTouch U-100] insulin syringe-needle U-100 [Easy 10/18/20 10/18/20 Touch Insulin Syringe] levothyroxine [Euthyrox] 1 tab PO DAILY 10/18/20 10/18/20 lorazepam 1 tab PO TID 10/18/20 10/18/20 losartan 1 tab PO DAILY 10/18/20 10/18/20 metronidazole 1 applic TOPICAL BID PRN 10/18/20 10/18/20 omeprazole 1 cap PO BID 10/18/20 10/18/20 oxycodone 1 tab PO TID PRN 10/18/20 10/18/20 oxycodone [OxyContin] 1 tab PO TID PRN 10/18/20 10/18/20 insulin degludec [Tresiba 56 unit SUBCUT BEDTIME 10/19/20 10/19/20 FlexTouch U-100] <AURELIA Gordon - Last Filed: 10/21/20 12:47> DS: Summary Hospital Course Hospital Course: From H&P on day of admission 70-year-old female with a past medical history of hypertension, hyperlipidemia, diabetes, hypothyroidism, contrast allergy presented to the hospital with a chief complaint of shortness of breath. Patient reported that over the past 4 days she has been having increased shortness of breath associated with dyspnea on exertion. Patient mentioned she is also short of breath at rest. Has orthopnea and PND as well. Noted leg swelling. Denies any chest pain palpitations. Denies any numbness tingling. Denies any fever chills cough and/or patient reports that patient had chronic home left-sided lower rib pain which worsens on deep inspiration. And has seen PCP. Denies any numbness tingling. Denies any GI or symptoms. Review of all other systems is negative except mentioned above ER course: Per ER team mentioned that patient complained of chest pain, EKG was normal sinus rhythm, follow-up EKG showed incomplete left bundle branch block. to have slightly elevated troponin of 23.2 followed by 25.21; EKG was nonischemic; discussed with the cardiology consult fire protection engineer who suggested admission to [facility], mentioned no need for heparin drip and will be evaluated in the morning. ER team also given dose of Lasix for possible CHF. Dyspnea BNP was 55, chest x-ray showed evidence for acute disease. PE was ruled out with negative V/Q scan. Troponin was checked and was flat. EKG showed incomplete left bundle branch block. Symptoms were consistent with CHF and she was started diuresis with IV Lasix. She had Echocardiogram which showed preserved EF, Grade 1 diastolic dysfunction and mild pulmonary hypertension. She was seen in consultation by both Cardiology and pulmonology. Overnight oximetry demonstrated no significant hypoxemia. Her dyspnea has improved with diuresis. She was started on tiotropium (previous chest CT showed emphysema). Her dose of Lasix will be increased from 20 mg to 40 mg daily. She should follow up with both Cardiology and pulmonology. She will need outpatient sleep study to evaluate for sleep apnea. She is encouraged to lose weight. Repeat chemistry should be checked in 1 week. Diabetes She was noticed to have episode of hypoglycemia with blood sugar of 50. Her glipizide will be stopped at discharge. Her tresiba dose will be decreased as well. She should monitor her blood sugar closely and follow up with her PCP and may need further adjustment of medication. Attending Attestation: Patient seen and examined independently and I was present during pena portion of E/M service. Agree with AURELIA Beasley's history, physical, assessment, and plan. <AURELIA Gordon - Last Filed: 10/21/20 12:47> Time Spent with Patient Time attestation: Total time spent providing and/or coordinating discharge services: <AURELIA Gordon - Last Filed: 10/21/20 12:47> Discharge coordination time: Greater than 30 minutes <AURELIA Gordon - Last Filed: 10/21/20 12:47> Quality: Stroke Does the patient have a stroke diagnosis?: No <AURELIA Gordon - Last Filed: 10/21/20 12:47> Physical Exam Vital Signs: Vital Signs: Last Vital Signs Temp 98.3 F 10/21/20 11:20 Pulse 81 10/21/20 11:40 Resp 19 10/21/20 11:20 BP 116/58 L 10/21/20 11:40 Pulse Ox 93 10/21/20 11:40 Body Mass Index 55.2 <AURELIA Gordon - Last Filed: 10/21/20 12:47> Const: General: alert and awake <AURELIA Gordon - Last Filed: 10/21/20 12:47> Nutritional Appearance: overweight <AURELIA Gordon - Last Filed: 10/21/20 12:47> Orientation/consciousness: patient oriented x3 <AURELIA Gordon - Last Filed: 10/21/20 12:47> HENMT: Head: Yes normocephalic and Yes atraumatic <AURELIA Gordon - Last Filed: 10/21/20 12:47> Eyes: Sclerae: sclerae normal <AURELIA Gordon - Last Filed: 10/21/20 12:47> Resp: Effort & Inspection: normal respiratory effort and no respiratory distress <AURELIA Gordon - Last Filed: 10/21/20 12:47> Cardio: Rate: regular rate <AURELIA Gordon - Last Filed: 10/21/20 12:47> Rhythm: regular rhythm <AURELIA Gordon - Last Filed: 10/21/20 12:47> GI: Palpation (GI): Soft to palpation and nontender <AURELIA Gordon - Last Filed: 10/21/20 12:47> Neuro: General: patient oriented x3 <AURELIA Gordon - Last Filed: 10/21/20 12:47> Cranial nerves: Yes CN's II-XII intact bilaterally and Yes Bilaterally intact EOM present <AURELIA Gordon - Last Filed: 10/21/20 12:47> DS: Data Data Completed and Pending Labs on day of discharge: Laboratory Results - last 24 hr 10/20/20 10/20/20 10/21/20 16:22 20:25 06:02 WBC 12.5 H RBC 4.35 Hgb 11.9 L Hct 39.4 MCV 90.6 MCH 27.4 MCHC 30.2 L RDW 15.9 Plt Count 229 MPV 10.2 Absolute Nucleated RBC 0.000 Nucleated RBC % (auto) 0.0 Sodium Potassium Chloride Carbon Dioxide Anion Gap BUN Creatinine Estim Creat Clear Calc Estimated GFR POC Glucose 168 H 160 H Random Glucose Calcium 10/21/20 10/21/20 10/21/20 06:02 06:38 07:12 WBC RBC Hgb Hct MCV MCH MCHC RDW Plt Count MPV Absolute Nucleated RBC Nucleated RBC % (auto) Sodium 140 Potassium 3.8 Chloride 99 Carbon Dioxide 31 H Anion Gap 14 BUN 20 H Creatinine 0.74 Estim Creat Clear Calc 100.4 Estimated GFR > 60 POC Glucose 96 90 Random Glucose 83 Calcium 8.4 10/21/20 11:19 WBC RBC Hgb Hct MCV MCH MCHC RDW Plt Count MPV Absolute Nucleated RBC Nucleated RBC % (auto) Sodium Potassium Chloride Carbon Dioxide Anion Gap BUN Creatinine Estim Creat Clear Calc Estimated GFR POC Glucose 151 H Random Glucose Calcium <AURELIA Gordon - Last Filed: 10/21/20 12:47> Discharge Plan Discharge Patient Disposition: Home, Self-Care <AURELIA Gordon - Last Filed: 10/21/20 12:47> Discharge Diagnosis: Acute diastolic CHF Pulmonary hypertension Diabetes with hypoglycemia <AURELIA Gordon - Last Filed: 10/21/20 12:47> Acute diastolic CHF Pulmonary hypertension Diabetes with hypoglycemia <Sagar Daley MD - Last Filed: 10/22/20 08:05> Referrals: Rayray Wright MD [Primary Care Provider] - 1 Week Rosalio Leger MD [Physician] - 1 Week Luis F Escalera MD [Physician] - 1 Week <AURELIA Gordon - Last Filed: 10/21/20 12:47> Discharge Medications: New tiotropium bromide 18 mcg capsule, w/inhalation device 1 cap inhalation DAILY 30 Days RF: 0 Continued losartan 50 mg tablet 1 tab PO DAILY RF: 0 atorvastatin 10 mg tablet 1 tab PO DAILY RF: 0 levothyroxine [Euthyrox] 75 mcg tablet 1 tab PO DAILY RF: 0 gabapentin 800 mg tablet 1 tab PO DAILY RF: 0 insulin aspart U-100 [Novolog U-100 Insulin aspart] 100 unit/mL solution See Rx Instructions .ROUTE .COMPLEX RF: 0 divalproex 500 mg tablet extended release 24 hr 1 tab PO DAILY RF: 0 metronidazole 0.75 % cream 1 applic topical BID PRN (Reason: Rash) RF: 0 omeprazole 20 mg capsule,delayed release(DR/EC) 1 cap PO BID RF: 0 allopurinol 300 mg tablet 1 tab PO BEDTIME RF: 0 lorazepam 1 mg tablet 1 tab PO TID RF: 0 oxycodone 10 mg tablet 1 tab PO TID PRN (Reason: Pain) RF: 0 oxycodone [OxyContin] 40 mg tablet,oral only,ext.rel.12 hr 1 tab PO TID PRN (Reason: Pain (Scale Score 7-10)) RF: 0 Changed Tresiba FlexTouch U-100 100 unit/mL (3 mL) insulin pen 30 unit subcut DAILY Qty: 0 RF: 0 Tresiba FlexTouch U-100 100 unit/mL (3 mL) Insulin Pen 30 unit SUBCUT BEDTIME Qty: 0 RF: 0 furosemide 20 mg tablet 40 mg PO DAILY 30 Days Qty: 60 RF: 0 Discontinued ibuprofen 800 mg tablet 1 tab PO TID PRN (Reason: Pain (Scale Score 1-3)) RF: 0 glipizide 5 mg tablet 10 mg PO BID RF: 0 No Action (DME) insulin syringe-needle U-100 [Easy Touch Insulin Syringe] 1 mL 31 gauge x 5/16 syringe MISCELLANEOUS RF: 0 <AURELIA Gordon - Last Filed: 10/21/20 12:47> Discharge Orders: Discharge Order (Routine); Ordered 10/21/20 Ordered By: Dayami Van <AURELIA Gordon - Last Filed: 10/21/20 12:47> Activity on Discharge: As tolerated <AURELIA Gordon - Last Filed: 10/21/20 12:47> As tolerated <Sagar Daley MD - Last Filed: 10/22/20 08:05> Stand Alone Forms: Patient Portal Discharge page <AURELIA Gordon - Last Filed: 10/21/20 12:47> Other Ambulatory Orders: Basic Metabolic Panel Fasting (Routine) Timeframe: 1 Week Facility: [facility] - Location: Laboratory Ordered By: Dayami Van <AURELIA Gordon Last Filed: 10/21/20 12:47> Care Plan Goals: See below <AURELIA Gordon - Last Filed: 10/21/20 12:47> Health Concerns: Acute diastolic CHF Pulmonary hypertension Edema Hypoglycemia <AURELIA Gordon - Last Filed: 10/21/20 12:47> Plan of Treatment: Your dose of Lasix has been increased, please take as prescribed Please call firefighter type one to schedule a follow-up appointment Please call barker peeler to schedule follow-up appointment, will need sleep study to evaluate for sleep apnea Have labs repeated in one week Your blood sugar was low while in the hospital, your medications have been adjusted. Please monitor your blood sugars closely and call PCP for follow up. <AURELIA Gordon - Last Filed: 10/21/20 12:47> Assessment: See discharge summary <AURELIA Gordon - Last Filed: 10/21/20 12:47> Discharge Date/Time: 10/21/20 14:42 <AURELIA Gordon - Last Filed: 10/21/20 12:47>
--- NOTE | 2020-10-21 13:01 | MHC.CM.PN ---
nurse director medicare sales note electronic medical record reviewed along with, staff nurse and hospitlaist. met with patient , she is aware that she will be discharged home today , with no services (she was offered vna several times AND REFUSED ) DISCHARGE PLAN HOME NO SERVICES (OFFERED AND DENIED) PCP PATIENT TO CALL FOR POST DISCHARGE FOLLOW UP TRANSPORTATION FAMILY MEDICARE IMM UPDATED IIIIIPATIENT IS AWARE THAT SHE NWILL NEED FURTHER FOLLOW UP, WITH CARDIOLOGY AND PULMONARY
== END 2020-10-21 14:42 | disposition home or self-care (01) | DRG 291 ==
LOC: HO.ED 21:48 → HO.EDOVER 22:34 → HO.S3 10-19 06:12
PROVIDERS: Nurse Practitioner Family; Physician Assistant; Student in an Organized Health Care Education/Training Program; Admitting Provider Hospitalist; Emergency Provider Emergency Medicine; PCP Internal Medicine; Visit Provider Family Medicine
DX: I11.0 Hypertensive heart disease with heart failure (principal); I50.31 Acute diastolic (congestive) heart failure; Z68.43 Body mass index [BMI] 50.0-59.9, adult; E87.3 Alkalosis; E03.9 Hypothyroidism, unspecified; K21.9 Gastro-esophageal reflux disease without esophagitis; E78.5 Hyperlipidemia, unspecified; E66.01 Morbid (severe) obesity due to excess calories; E11.649 Type 2 diabetes mellitus with hypoglycemia without coma; J43.2 Centrilobular emphysema; I27.20 Pulmonary hypertension, unspecified; Z20.822 Contact with and (suspected) exposure to COVID-19; Z87.891 Personal history of nicotine dependence; Z88.0 Allergy status to penicillin; Z88.2 Allergy status to sulfonamides; Z79.4 Long term (current) use of insulin; Z79.890 Hormone replacement therapy; Z79.891 Long term (current) use of opiate analgesic; Z79.899 Other long term (current) drug therapy
CPT/HCPCS: 0241U; 36415; 36600; 71046; 78580; 80048; 80061; 80076; 81001; 81003; 82947; 83735; 83880; 84443; 84484; 85025; 85027; 85379; 85610; 85730; 87086; 93005; 93306; 93970; 96374; 97116; 97162; 99285; A9540; J0696; J1650; J1940; J2270

== ENCOUNTER → 2020-10-27 13:02 | Outpatient (BNVA) | payer MEDICARE, MEDICAID, SELFPAY | PROVIDERS: Referring Provider Internal Medicine; Visit Provider Internal Medicine | DX: I50.811 Acute right heart failure (principal); I27.20 Pulmonary hypertension, unspecified; E66.01 Morbid (severe) obesity due to excess calories; E11.8 Type 2 diabetes mellitus with unspecified complications; I10 Essential (primary) hypertension | CPT/HCPCS: 99212 ==

== ENCOUNTER → 2020-11-01 14:59 | Outpatient (BNVA) | payer MEDICARE, MEDICAID, SELFPAY | PROVIDERS: PCP Internal Medicine; Visit Provider Hospitalist | DX: R91.1 Solitary pulmonary nodule (principal); R06.00 Dyspnea, unspecified; J43.2 Centrilobular emphysema; I27.20 Pulmonary hypertension, unspecified | CPT/HCPCS: 99212 ==

== ENCOUNTER → 2020-11-03 09:49 | Outpatient (REF) | payer MEDICARE, MEDICAID, SELFPAY ==
[2020-11-03 11:42] LABS: MANUAL DIFF FLAG NO
[2020-11-03 11:50] LABS: Basophils Percent Auto 0.2 % (0-2); Eosinophils Absolute Auto 0.2 X10*3/uL (0.0-0.4); Eosinophils Percent Auto 1.2 % (0-4); Hemoglobin 12.7 g/dl (12.0-16.0); Imm Gran Abs Auto 0.08 X10*3/uL (0.00-0.03); Imm Gran Pct Auto 0.6 % (0.0-0.4); Lymphocytes Absolute Auto 3.3 X10*3/uL (1.2-4.9); Lymphocytes Percent Auto 26.8 % (20-40); Mean Corpuscular Hemoglobin 27.9 pg (27.0-33.0); Mean Corpuscular Volume 90.1 fL (80-98); Mean Platelet Volume 11.2 fL (9.4-12.3); Monocytes Absolute Auto 0.6 X10*3/uL (0.1-1.2); Monocytes Percent Auto 4.7 % (2-11); Neutrophils Absolute Auto 8.3 X10*3/uL (2.0-8.3); Neutrophils Percent Auto 66.5 % (45-73); Platelet Count 209 X10*3/uL (160-400); Red Blood Count 4.55 X10*6/uL (4.20-5.50); Red Cell Distribution Width 15.6 % (11.0-16.0); White Blood Count 12.4 X10*3/uL (4.8-10.8)
[2020-11-03 11:57] LABS: Estimated Average Glucose 146 mg/dL; Hemoglobin A1C 164.7816 umol/L; Hemoglobin A1c % 6.7 %
[2020-11-03 12:15] LABS: B Type Natriuretic Peptide 19 pg/mL (<100)
[2020-11-03 12:23] LABS: Anion Gap 14 (12-20); Blood Urea Nitrogen 14 mg/dL (9-16); Calcium 8.8 mg/dL (8.4-10.2); Carbon Dioxide 38 mmol/L (22-29); Chloride 94 mmol/L (96-108); Estimated Glomerular Filt Rate > 60; Glucose Random 174 mg/dL (60-115); Potassium 4.3 mmol/L (3.3-5.1); Sodium 142 mmol/L (135-145)
[2020-11-03 12:31] LABS: Erythrocyte Sedimentation Rate 44 MM/HR (0-20)
== END ==
LOC: HO.SL 09:49
PROVIDERS: Absent Provider Physician Assistant Medical; PCP Internal Medicine; Referring Provider Hospitalist; Visit Provider Internal Medicine
DX: G47.33 Obstructive sleep apnea (adult) (pediatric) (principal); I50.811 Acute right heart failure; J43.2 Centrilobular emphysema; R06.00 Dyspnea, unspecified; E11.9 Type 2 diabetes mellitus without complications; Z79.4 Long term (current) use of insulin
CPT/HCPCS: 36415; 80048; 83036; 83880; 85025; 85652; 95806

== ENCOUNTER → 2020-11-12 09:20 | Outpatient (REF) | payer MEDICARE, MEDICAID, SELFPAY ==
--- NOTE | ~2020-11-12 | NM_ITS ---
Myocardial perfusion study Indication: Angina pectoris to evaluate for myocardial ischemia Technique: The patient was brought in for a Lexiscan perfusion study on 11/12/2020. Patient performed low-level exercise and was injected 0.4 mg of Lexiscan intravenously. Within a minute of injection, 45 mCi of sestamibi was given intravenously. Images were obtained using the SPECT gamma camera interlaced with the gating device. Images were obtained in supine position. Resting perfusion study was performed on 11/15/2020. Patient was administered 45 mCi of sestamibi intravenously at rest. Images were then obtained in supine position. Images obtained with and without CT attenuation. Total DLP 179 mGy-cm. Images were processed with the software and compared side to side in short axis, horizontal long axis and vertical long axis views. Findings: The stress perfusion study showed nonattenuated images show mildly reduced uptake in the anterior wall of the LV myocardium. There is moderately reduced uptake in the inferoapical wall and mildly reduced uptake in the mid and basal inferior wall of the LV myocardium. There is also mildly reduced uptake in the inferolateral wall of the LV myocardium. Attenuation corrected images show mildly to moderately reduced uptake in the inferoapical, moderately reduced uptake in the apex of the LV myocardium.. The gated study shows normal LV systolic function with calculated LVEF of 55%. LV cavity is mildly dilated size. The gated study shows normal systolic wall thickening and contraction of segments. Resting study shows nonattenuated images show normalized uptake in the inferolateral lateral as well as basal and mid inferior wall and inferoapical wall of the LV myocardium. Attenuation corrected and show normalized uptake in the inferoapical and mildly uptake and apical LV myocardium. Gating at rest reveals normal systolic wall motion with ejection fraction at 59%. The findings are consistent with reversible defect of the inferoapical and apical wall of the LV myocardium suggestive of ischemia. Equivocal findings of reversible defect on inferolateral wall seen only on nonattenuated NM/NM wilfredo perf SPECT rest & str Impression: 1. Myocardial perfusion imaging study shows inferoapical and apical ischemia with possible inferolateral ischemia 2. Gated LVEF is 55% 3. Transient ischemic dilatation present EKG is nondiagnostic for ischemia
--- NOTE | 2020-11-12 09:24 | CA_ITS ---
Acquisition Time: 2020-11-12 11:36:03 Total Exercise Time: 00:02:00 Test Indications: Dyspnea Medications: see H Protocol: LEXISCAN Max HR: 100 BPM 67% of Pred: 149 BPM Max BP: 124/060 mmHG Max Work Load: 1.0 METS Pharmacological stress test with Lexiscan injections, while sitting and kicking her legs, without anginal symptoms, without arrythmia, with normotensive response to injection, with nondiagnostic EKG for ischemia. In recovery she reported lightheadedness and headache that was treated with Aminophylline 75mg IVP to reverse Lexiscan with improvement in symptoms. Nuclear images pending. Test reviewed with Dr Escalera. Referred By: Luis F Escalera Overread By: STEPHANY VALENZUELA
== END ==
LOC: HO.CARD 09:20
PROVIDERS: Visit Provider Internal Medicine
DX: I20.9 Angina pectoris, unspecified (principal); I50.811 Acute right heart failure
CPT/HCPCS: 78452; 93017; A9500; J0280; J2785

== ENCOUNTER → 2020-11-18 10:42 | Outpatient (BNVA) | payer MEDICARE, MEDICAID, SELFPAY | PROVIDERS: PCP Internal Medicine; Visit Provider Hospitalist | DX: R91.1 Solitary pulmonary nodule (principal); J43.2 Centrilobular emphysema; I20.0 Unstable angina | CPT/HCPCS: 99212 ==

== ENCOUNTER → 2020-11-22 11:35 | Outpatient (BNVA) | payer MEDICARE, MEDICAID, SELFPAY | PROVIDERS: PCP Internal Medicine; Visit Provider Internal Medicine | DX: I50.811 Acute right heart failure (principal); I27.20 Pulmonary hypertension, unspecified; I10 Essential (primary) hypertension; E66.01 Morbid (severe) obesity due to excess calories; E11.8 Type 2 diabetes mellitus with unspecified complications; R07.2 Precordial pain | CPT/HCPCS: 93005; 99212 ==

== ENCOUNTER 2020-12-21 09:51 | Outpatient (REF) | payer MEDICARE, MEDICAID, SELFPAY ==
[2020-12-21 11:27] LABS: Anion Gap 14 (12-20); Blood Urea Nitrogen 13 mg/dL (9-16); Carbon Dioxide 38 mmol/L (22-29); Chloride 97 mmol/L (96-108); Estimated Glomerular Filt Rate > 60; Glucose Random 114 mg/dL (60-115); Potassium 4.5 mmol/L (3.3-5.1); Sodium 144 mmol/L (135-145)
[2020-12-21 11:29] LABS: Hematocrit 39.4 % (37-47); Hemoglobin 12.2 g/dl (12.0-16.0); Mean Corpuscular Hemoglobin 28.4 pg (27.0-33.0); Mean Corpuscular Volume 91.6 fL (80-98); Platelet Count 244 X10*3/uL (160-400); Red Cell Distribution Width 16.5 % (11.0-16.0); White Blood Count 13.9 X10*3/uL (4.8-10.8)
[2020-12-21 11:35] LABS: Prothrombin Time 11.2 SEC (9.9-13.0)
== END 2020-12-21 09:52 | disposition home or self-care (01) ==
LOC: HO.LAB 09:51
PROVIDERS: PCP Internal Medicine; Visit Provider Internal Medicine
DX: I50.811 Acute right heart failure (principal); R07.2 Precordial pain; Z20.822 Contact with and (suspected) exposure to COVID-19
CPT/HCPCS: 80048; 85027; 85610; U0003; U0005

== ENCOUNTER 2020-12-24 13:37 | Outpatient (REF) | payer MEDICARE, MEDICAID, SELFPAY ==
--- NOTE | ~2020-12-24 | CT_ITS ---
EXAMINATION: CT CHEST WITHOUT CONTRAST CLINICAL INFORMATION: Pulmonary nodule COMPARISON: Previous chest CT most recent September 2020 TECHNIQUE: Multidetector volumetric CT imaging of the chest was done. Axial MIP volume rendering provided. Sagittal and coronal reformatted images were obtained. This CT examination was performed using dose optimization techniques as appropriate, variously including the following: *Automated exposure control *Adjustment of mA and/or kV according to patient size (this includes techniques or standardized protocols for targeted exams where dose is matched to indication/reason for exam; i.e. extremities or head) *Use of iterative reconstruction technique DLP: 315 mGy-cm FINDINGS: LUNGS: There is evidence of emphysema. There is linear scarring at the right lung apex that is stable. There is a 2 mm left upper lobe nodule axial image 80 series 7 that is stable. There is a 3 mm right upper lobe nodule axial image 158 series 7 that is stable there is a 4 mm peripheral or subpleural right lower lobe nodule axial image 203 series 7 that is stable. There is a 6 x 7 mm right lower lobe nodule axial image 291 series 7 that is stable. There is subsegmental atelectasis at the lung bases. MEDIASTINUM: There are small mediastinal lymph nodes that are stable. There is coronary artery and aortic valve calcification. Heart does not appear enlarged. There is no pericardial effusion. The thoracic aorta is normal in caliber. PLEURA: There is no pleural effusion. No pleural mass or thickening. AXILLA: No lymphadenopathy. UPPER ABDOMEN: The gallbladder is been removed. OSSEOUS STRUCTURES: There are postsurgical changes to the spine. There are old the bilateral rib fractures. There are degenerative changes of the spine. CT/CT chest wo con IMPRESSION: Stable pulmonary nodules, largest measuring 6 x 7 mm in the right lower lobe.
== END 2020-12-24 13:38 | disposition home or self-care (01) ==
LOC: HO.CT 13:37
PROVIDERS: PCP Internal Medicine; Visit Provider Hospitalist
DX: R91.1 Solitary pulmonary nodule (principal)
CPT/HCPCS: 71250

== ENCOUNTER 2020-12-27 10:03 | Outpatient (REF) | payer MEDICARE, MEDICAID, SELFPAY | END 2020-12-27 10:04 | disposition home or self-care (01) | LOC: HO.LAB 10:03 | PROVIDERS: PCP Internal Medicine; Visit Provider Internal Medicine | DX: Z20.822 Contact with and (suspected) exposure to COVID-19 (principal); R07.9 Chest pain, unspecified | CPT/HCPCS: U0003; U0005 ==

== ENCOUNTER 2021-01-13 11:30 | Outpatient (REF) | payer MEDICARE, MEDICAID, SELFPAY ==
[2021-01-13 14:46] LABS: MANUAL DIFF FLAG NO
[2021-01-13 14:48] LABS: Basophils Absolute Auto 0.1 X10*3/uL (0.0-0.2); Basophils Percent Auto 0.4 % (0-2); Eosinophils Absolute Auto 0.2 X10*3/uL (0.0-0.4); Eosinophils Percent Auto 1.5 % (0-4); Hematocrit 35.3 % (37-47); Imm Gran Abs Auto 0.12 X10*3/uL (0.00-0.03); Imm Gran Pct Auto 0.9 % (0.0-0.4); Lymphocytes Absolute Auto 3.7 X10*3/uL (1.2-4.9); Lymphocytes Percent Auto 28.7 % (20-40); Mean Corpuscular HGB Conc 31.2 g/dl (31.0-35.0); Mean Corpuscular Hemoglobin 28.7 pg (27.0-33.0); Mean Corpuscular Volume 92.2 fL (80-98); Mean Platelet Volume 10.9 fL (9.4-12.3); Monocytes Absolute Auto 0.5 X10*3/uL (0.1-1.2); Monocytes Percent Auto 4.2 % (2-11); Neutrophils Absolute Auto 8.3 X10*3/uL (2.0-8.3); Neutrophils Percent Auto 64.3 % (45-73); Platelet Count 212 X10*3/uL (160-400); Red Blood Count 3.83 X10*6/uL (4.20-5.50); Red Cell Distribution Width 16.5 % (11.0-16.0); White Blood Count 12.9 X10*3/uL (4.8-10.8)
[2021-01-13 14:53] LABS: Prothrombin Time 11.2 SEC (9.9-13.0)
[2021-01-13 15:39] LABS: Alanine Aminotransferase 12 U/L (0-31); Albumin Level 3.5 g/dL (3.5-5.0); Alkaline Phosphatase 96 U/L (39-117); Anion Gap 10 (12-20); Aspartate Amino Transferase 13 U/L (5-31); Bilirubin Total 0.2 mg/dL (0.0-1.0); Blood Urea Nitrogen 16 mg/dL (9-16); Calcium 8.6 mg/dL (8.4-10.2); Carbon Dioxide 35 mmol/L (22-29); Chloride 100 mmol/L (96-108); Cholesterol 146 mg/dL; Estimated Glomerular Filt Rate > 60; Glucose Random 106 mg/dL (60-115); HDL Cholesterol 33 mg/dL; LDL Cholesterol Calculated 79 mg/dl; Potassium 4.8 mmol/L (3.3-5.1); Sodium 140 mmol/L (135-145); Total Protein 6.8 g/dL (6.5-8.0); Triglycerides 170 mg/dL
[2021-01-13 16:01] LABS: Thyroid Stimulating Hormone 3.13 uIU/mL (0.32-4.0)
== END 2021-01-13 11:31 | disposition home or self-care (01) ==
LOC: HO.LAB 11:30
PROVIDERS: PCP Internal Medicine; Referring Provider Internal Medicine; Visit Provider Internal Medicine
DX: R07.2 Precordial pain (principal); I50.811 Acute right heart failure; I27.20 Pulmonary hypertension, unspecified; E66.01 Morbid (severe) obesity due to excess calories; I10 Essential (primary) hypertension; E11.9 Type 2 diabetes mellitus without complications; E03.9 Hypothyroidism, unspecified; R53.83 Other fatigue; Z79.4 Long term (current) use of insulin; Z79.899 Other long term (current) drug therapy
CPT/HCPCS: 36415; 80053; 80061; 84443; 85025; 85610; 93005; 99212

== ENCOUNTER → 2021-01-18 13:32 | Outpatient (BNVA) | payer MEDICARE, MEDICAID, SELFPAY | PROVIDERS: PCP Internal Medicine; Visit Provider Hospitalist | DX: J43.2 Centrilobular emphysema (principal); R91.1 Solitary pulmonary nodule; I20.0 Unstable angina | CPT/HCPCS: 99212 ==

== ENCOUNTER 2021-01-18 14:16 | Emergency (ER) | payer MEDICARE, MEDICAID, SELFPAY ==
--- NOTE | 2021-01-18 | ECG_ITS ---
Test Reason : CHEST PAIN Blood Pressure : / mmHG Vent. Rate : 075 BPM Atrial Rate : 075 BPM P-R Int : 134 ms QRS Dur : 110 ms QT Int : 424 ms P-R-T Axes : 027 -33 037 degrees QTc Int : 473 ms Sinus rhythm with occasional Premature ventricular complexes Left axis deviation Possible Anterior infarct , age undetermined Abnormal ECG When compared with ECG of 06-APR-2019 10:23, Premature ventricular complexes are now Present Referred By: Generic ED Physician Electronically Signed By:ANGELI HOUGH
--- NOTE | ~2021-01-18 | XR_ITS ---
EXAMINATION: XR CHEST CLINICAL INFORMATION: Chest pain. COMPARISON: 10/18/2020 portable chest radiograph. TECHNIQUE: Frontal view of the chest was obtained. FINDINGS: The lungs are clear. The heart and mediastinal structures are unremarkable. Anterior cervical and posterior thoracic spinal fusion hardware is again noted in place. Multilevel healed posterolateral left rib fractures are again noted. XR/XR chest 1V IMPRESSION: No acute cardiopulmonary process.
[2021-01-18 14:32] VITALS: BP 142/58; PULSE 74; RESP 14; TEMP 36.8; O2SAT 96; BMI 50.4
--- NOTE | 2021-01-18 14:34 | ED.CHESTPAIN ---
HPI - Chest Pain General Chief Complaint: Chest Pain Stated Complaint: Chest Pain Time Seen by Provider: 01/18/21 14:32 Source: patient Mode of arrival: ambulatory Limitations: no limitations History of Present Illness HPI narrative: 70 y/o female with multiple medical problems including COPD, pulmonary HTN, morbid obesity, DM2, CHF, unstable angina with recent admission for acute CHF exacerbation who presents to the ED from the Pulmonary office with left sided chest pain. She reports the pain has been present on/off for 2+ weeks. It radiates into her left breast and left underarm. It comes and goes. Worse with stress or exertion. She was just seen by Dr. Escalera with plan to get a cardiac cath arranged however she is allergic to contrast and steroids. She had a nuclear stress test that showed some ischemia in October. She occasionally takes SL nitro with some improvement in her pains. She has ongoing SOB that is at her baseline. She denies cough, fever, chills, N/V, diaphoresis. She was reportedly given ASA and SL nitro in the Pulm office and she reports everything gets fuzzy after that. She was placed on O2 (no reports of hypoxia) and brought to the ER for evaluation. On arrival she c/o headache. MD complaint: chest pain Onset (ago): week(s) Timing of current episode: episodic Prior episodes: Yes Onset: during exertion Pain location: substernal Pain radiation: left arm and left shoulder Severity: moderate Quality: sharp Relieving factors: nitroglycerin, rest and remaining still Exacerbating factors: exertion, palpation and movement Associated symptoms: dyspnea Treatment prior to arrival: aspirin, nitroglycerin and oxygen Risk Factors Coronary artery disease risk factors: diabetes, hyperlipidemia and hypertension Thoracic aortic dissection risk factors: none Related Data On Oral Contraceptives: No Home Medications Medication Instructions Recorded Confirmed allopurinol 300 mg tablet 300 mg PO DAILY 10/18/20 01/18/21 gabapentin 800 mg tablet 800 mg PO BID 10/18/20 01/18/21 insulin aspart U-100 100 unit/mL See Rx Instructions .ROUTE .COMPLEX 10/18/20 01/18/21 subcutaneous solution (Novolog U-100 Insulin aspart) insulin syringe-needle U-100 1 mL 10/18/20 01/13/21 31 gauge x 5/16 (Easy Touch Insulin Syringe) levothyroxine 75 mcg tablet 1 tab PO DAILY 10/18/20 01/18/21 (Euthyrox) lorazepam 1 mg tablet 1 tab PO TID 10/18/20 01/18/21 losartan 50 mg tablet 50 mg PO DAILY 10/18/20 01/18/21 omeprazole 20 mg capsule,delayed 20 mg PO BID@0630,1630 10/18/20 01/18/21 release oxycodone 10 mg tablet 1 tab PO TID PRN 10/18/20 01/18/21 oxycodone 40 mg tablet,crush 1 tab PO TID 10/18/20 01/18/21 resistant,extended release 12 hr (OxyContin) glipizide 5 mg tablet 5 mg PO BIDAC 11/01/20 01/18/21 ibuprofen 800 mg tablet 800 mg PO TID PRN 11/01/20 01/18/21 furosemide 40 mg tablet (Lasix) 40 mg PO BID tab 01/13/21 01/18/21 isosorbide mononitrate 60 mg 60 mg PO DAILY 01/13/21 01/18/21 tablet,extended release 24 hr cephalexin 500 mg capsule 500 mg PO QID 01/18/21 01/18/21 divalproex 500 mg tablet,delayed 500 mg PO BID 01/18/21 01/18/21 release insulin degludec 100 unit/mL (3 56 unit SUBCUT BEDTIME 01/18/21 01/18/21 mL) subcutaneous pen (Tresiba FlexTouch U-100 insulin) insulin degludec 100 unit/mL (3 60 unit SUBCUT DAILY 01/18/21 01/18/21 mL) subcutaneous pen (Tresiba FlexTouch U-100 insulin) umeclidinium 62.5 mcg/actuation 1 inh INHALATION DAILY 01/18/21 01/18/21 blister powder for inhalation (Incruse Ellipta) Previous Rx's Medication Instructions Recorded nitroglycerin 0.4 mg sublingual 0.4 mg SUBLINGUAL Q5M PRN #20 tab 12/29/20 tablet Allergies Allergy/AdvReac Type Severity Reaction Status Date / Time Iodinated Contrast Media Allergy Severe DYSPNEA,INTERNAL Verified 01/18/21 13:57 [IV Dye, Iodine Containing] HIVES-THROAT CLOSES latex [LATEX] Allergy Severe HIVES,ITCH Verified 01/18/21 13:57 metoprolol [METOPROLOL] Allergy Severe RASH,ITCHIN Verified 01/18/21 13:57 G Penicillins Allergy Mild RASH Verified 01/18/21 13:57 prednisone [Prednisone] Allergy Mild BURNING Verified 01/18/21 13:57 SKIN,ITCHY Sulfa (Sulfonamide Allergy Mild ITCH Verified 01/18/21 13:57 Antibiotics) [Sulfa (Sulfonamides)] fish derived [fish] Allergy Anaphylaxis Verified 01/18/21 13:57 sumatriptan [From Imitrex] AdvReac Mild CP Verified 01/18/21 13:57 Review of Systems Constitutional: Constitutional: Denies body ache(s), Denies chills, Denies fever(s) and Reports headache(s) Eyes: Eyes: Reports no additional eye complaints ENT: Reports Normal hearing present, Denies dizziness, Reports headache(s) and Denies sore throat Cardiovascular: Cardiovascular: Reports chest pain, Reports chest pain at rest, Reports chest pain with activity, Denies syncope, Reports pedal edema, Reports edema, Denies palpitations, Reports dyspnea, Reports dyspnea on exertion and Reports orthopnea Respiratory: Respiratory: Denies cough, Reports dyspnea and Reports dyspnea on exertion Gastrointestinal: Gastrointestinal: Denies abdominal pain, Denies diarrhea, Denies nausea and Denies vomiting Musculoskeletal: Musculoskeletal: Denies back pain and Denies myalgias Integumentary/Breasts: Skin/Breast: Denies rash Neurologic: Reports Normal hearing present, Denies dizziness, Denies syncope and Reports headache(s) Psychiatric: Psychiatric: Reports anxiety, Reports depression and Denies suicidal ideation Endocrine: Endocrine: Denies palpitations PMF Past Medical History Attestation statement: The following information was validated with the patient. Medical History COPD (chronic obstructive pulmonary disease) Diabetes Essential hypertension GERD (gastroesophageal reflux disease) HTN (hypertension) Hypothyroid Other and unspecified hyperlipidemia Pulmonary nodule Type 2 diabetes mellitus with unspecified complications Unstable angina Surgical History History of back surgery Family History Family History Father Lung cancer Mother Brain tumor Son Heart attack Social History Social History Housing: House Do you presently have visiting nurse or other home services: No Alcohol intake: never Patient Tobacco Use Status: Former Tobacco user Tobacco use type: Cigarette Cigarette Packs Per Day: 3 Cigarettes Per Day: 60.0 Years Smoked: 30 Second Hand Smoke Exposure: No Use of substances other than those prescribed or required for medical reasons: No Substance Use Type: Painkillers Advance Directives: No Advance Directives Information Provided: No service: No Current occupational status: employed Physical Exam Vital Signs: Vital Signs: Last Vital Signs Temp 98.2 F 01/18/21 14:32 Pulse 74 01/18/21 16:00 Resp 18 01/18/21 16:00 BP 114/51 L 01/18/21 15:22 Pulse Ox 95 01/18/21 16:00 Body Mass Index 50.4 Const: General: alert, awake, in distress mild and respiratory and anxious Nutritional Appearance: obese morbidly obese Orientation/consciousness: patient oriented x3 Limitations: no limitations HENMT: Head: Yes normal to inspection, Yes normocephalic and Yes atraumatic Ears: hearing grossly normal bilaterally and external ears normal General nose exam: Normal external nose present and Normal nares present Face and sinus: Yes normal facial exam and Yes face symmetric Mouth: Normal oral and palatal mucosa present and lip normal Teeth and gingiva: dentition normal and gingiva normal Throat: Yes posterior oropharynx normal and Yes tonsils normal Eyes: General: appearance normal, both eyes and all related structures Neck: Neck: Yes normal visual inspection and Yes no lymphadenopathy Chest: Chest palpation & inspection: normal inspection of the chest and normal palpation of entire chest wall Resp: Effort & Inspection: able to speak in complete sentences, respiratory distress and tachypneic Auscultation: diminished lung sounds bilateral in the lower lung lr Cardio: Rate: regular rate Rhythm: regular rhythm Heart sounds: S1 normal heart sound present and S2 normal heart sound present GI: Inspection: Yes obesity Palpation (GI): Soft to palpation, not firm and nontender Percussion: Yes normal to percussion Auscultation: normal bowel sounds Skin: General skin exam: no rashes or lesions noted Neuro: General: patient oriented x3, gait normal and moves all extremities Cranial nerves: Yes Normal hearing present Extrem: General: Yes pedal edema (3+ bilaterally from foot to below the knee) Psych: Appearance: grossly normal and well kempt Mental Status: mental status grossly normal Speech and movement: Normal speech and movement present Affect: normal affect Attitude: cooperative Course Course Course Narrative: 70 yo female with multiple comorbidities presenting with left sided chest pain on/off for 2 weeks. Clutching left chest with reproducible pain on exam. Headache improving. EKG without STEMI. Will give dose of IV morphine/zofran. She is hemodynamically stable and on room air. She is dyspneic with conversation which she reports is her baseline. Will check CXR, labs, troponin, COVID. Dispo pending results and improvement. Reevaluation(s) Reevaluation #1: Pain improved with morphine. CXR clear. Remains on room air. When reassessed patient reports she is struggling with anxiety and depression about the of her son, whose anniversary is coming up in 1 week. She gets tearful and anxious when elaborates and chest pain returned. Will give dose of Ativan and Toradol and reassess. 1st troponin is <3.5. Will need a 3 hour repeat. Reevaluation #2: 2nd troponin is negative. She is feeling much better after medications. She is up ambulating to the bathroom with no chest pain or dyspnea. COVID negative. Had a negative VQ a couple of months ago. Suspect her pain is multifactorial with anxiety/stress component, MSK component as well as possible angina. She would like to be discharged home. She is encouraged to f/u with Dr. Escalera for cardiac cath arrangement. She wants this test to be performed. Comfortable with d/c home and plan for close outpatient follow up. Patient agrees with plan. She will return if symptoms worsen. MDM - Chest Pain Lab Data Result diagrams: 01/18/21 14:52 01/18/21 14:52 Labs: Lab Results 01/18/21 01/18/21 01/18/21 Range/Units 14:52 14:52 14:52 WBC 13.7 H (4.8-10.8) X10*3/uL RBC 4.11 L (4.20-5.50) X10*6/uL Hgb 11.7 L (12.0-16.0) g/dl Hct 37.5 (37-47) % MCV 91.2 (80-98) fL MCH 28.5 (27.0-33.0) pg MCHC 31.2 (31.0-35.0) g/dl RDW 16.2 H (11.0-16.0) % Plt Count 230 (160-400) X10*3/uL MPV 10.0 (9.4-12.3) fL Immature Gran % (Auto) 0.8 H (0.0-0.4) % Neut % (Auto) 67.9 (45-73) % Lymph % (Auto) 25.7 (20-40) % [place] % (Auto) 4.2 (2-11) % Eos % (Auto) 1.2 (0-4) % Baso % (Auto) 0.2 (0-2) % Lymph # (Auto) 3.5 (1.2-4.9) X10*3/uL [place] # (Auto) 0.6 (0.1-1.2) X10*3/uL Eos # (Auto) 0.2 (0.0-0.4) X10*3/uL Baso # (Auto) 0.0 (0.0-0.2) X10*3/uL Abs Immat Gran (auto) 0.11 H (0.00-0.03) X10*3/uL Absolute Neuts (auto) 9.3 H (2.0-8.3) X10*3/uL Absolute Nucleated RBC 0.000 (0.0-0.012) X10*3/uL Nucleated RBC % (auto) 0.0 (0.0-0.2) /100WBC PT 11.7 (9.9-13.0) SEC INR 1.0 (0.9-1.1) APTT 38.6 H (24.1-38.0) SEC Sodium 142 (135-145) mmol/L Potassium 5.0 (3.3-5.1) mmol/L Chloride 102 (96-108) mmol/L Carbon Dioxide 32 H (22-29) mmol/L Anion Gap 13 (12-20) BUN 11 (9-16) mg/dL Creatinine 0.74 (0.5-1.4) mg/dL Estim Creat Clear Calc 94.8 Estimated GFR > 60 Random Glucose 171 H D (60-115) mg/dL Calcium 8.8 (8.4-10.2) mg/dL Magnesium 2.1 (1.6-2.6) mg/dL Total Bilirubin 0.3 (0.0-1.0) mg/dL Direct Bilirubin < 0.2 (0.0-0.5) mg/dL AST 12 (5-31) U/L ALT 14 (0-31) U/L Alkaline Phosphatase 106 (39-117) U/L Troponin I High Sens (<3.5-17.0) ng/L B-Natriuretic Peptide (<100) pg/mL Total Protein 7.5 (6.5-8.0) g/dL Albumin 3.8 (3.5-5.0) g/dL Coronavirus (PCR) (Negative) Influenza Type A (PCR) (Negative) Influenza Type B (PCR) (Negative) RSV RNA Qual (PCR) (Negative) 01/18/21 01/18/21 01/18/21 Range/Units 14:52 14:52 16:56 WBC (4.8-10.8) X10*3/uL RBC (4.20-5.50) X10*6/uL Hgb (12.0-16.0) g/dl Hct (37-47) % MCV (80-98) fL MCH (27.0-33.0) pg MCHC (31.0-35.0) g/dl RDW (11.0-16.0) % Plt Count (160-400) X10*3/uL MPV (9.4-12.3) fL Immature Gran % (Auto) (0.0-0.4) % Neut % (Auto) (45-73) % Lymph % (Auto) (20-40) % [place] % (Auto) (2-11) % Eos % (Auto) (0-4) % Baso % (Auto) (0-2) % Lymph # (Auto) (1.2-4.9) X10*3/uL [place] # (Auto) (0.1-1.2) X10*3/uL Eos # (Auto) (0.0-0.4) X10*3/uL Baso # (Auto) (0.0-0.2) X10*3/uL Abs Immat Gran (auto) (0.00-0.03) X10*3/uL Absolute Neuts (auto) (2.0-8.3) X10*3/uL Absolute Nucleated RBC (0.0-0.012) X10*3/uL Nucleated RBC % (auto) (0.0-0.2) /100WBC PT (9.9-13.0) SEC INR (0.9-1.1) APTT (24.1-38.0) SEC Sodium (135-145) mmol/L Potassium (3.3-5.1) mmol/L Chloride (96-108) mmol/L Carbon Dioxide (22-29) mmol/L Anion Gap (12-20) BUN (9-16) mg/dL Creatinine (0.5-1.4) mg/dL Estim Creat Clear Calc Estimated GFR Random Glucose (60-115) mg/dL Calcium (8.4-10.2) mg/dL Magnesium (1.6-2.6) mg/dL Total Bilirubin (0.0-1.0) mg/dL Direct Bilirubin (0.0-0.5) mg/dL AST (5-31) U/L ALT (0-31) U/L Alkaline Phosphatase (39-117) U/L Troponin I High Sens < 3.5 D < 3.5 (<3.5-17.0) ng/L B-Natriuretic Peptide 32 (<100) pg/mL Total Protein (6.5-8.0) g/dL Albumin (3.5-5.0) g/dL Coronavirus (PCR) NEGATIVE (Negative) Influenza Type A (PCR) NEGATIVE (Negative) Influenza Type B (PCR) NEGATIVE (Negative) RSV RNA Qual (PCR) NEGATIVE (Negative) Critical Care Time Critical Care Time Critical Care Time: Yes Total Critical Care Time: 40 Attestation: I have personally provided critical care time exclusive of time spent on separately billable procedures. Time includes review of lab data, radiology results, discussion with consultants, and monitoring for potential decompensation. Intervention performed as documented. Discharge Plan Discharge Clinical Impression: Atypical chest pain Patient Disposition: Home, Self-Care Instructions: Chest Pain (ED), Chest Wall Pain (ED) Additional Instructions: Your workup today was unremarkable. Recommend following up with your Forensic Specialist and Planting Machine Operator. Some of your pain may be due to a combination of anxiety as well as muscular pain in your chest wall. Rest. No stenuous activity. Follow up with your doctor this week. If you develop new or worsening symptoms call 911 or come back to the ER for further evaluation. Prescriptions: No Action nitroglycerin 0.4 mg tablet, sublingual 0.4 mg sublingual Q5M PRN (Reason: chest pain) Qty: 20 RF: 3 losartan 50 mg tablet 50 mg PO DAILY RF: 0 levothyroxine [Euthyrox] 75 mcg tablet 1 tab PO DAILY RF: 0 gabapentin 800 mg tablet 800 mg PO BID RF: 0 insulin aspart U-100 [Novolog U-100 Insulin aspart] 100 unit/mL solution See Rx Instructions .ROUTE .COMPLEX RF: 0 omeprazole 20 mg capsule,delayed release(DR/EC) 20 mg PO BID@0630,1630 RF: 0 (DME) insulin syringe-needle U-100 [Easy Touch Insulin Syringe] 1 mL 31 gauge x 5/16 syringe MISCELLANEOUS RF: 0 allopurinol 300 mg tablet 300 mg PO DAILY RF: 0 lorazepam 1 mg tablet 1 tab PO TID RF: 0 oxycodone 10 mg tablet 1 tab PO TID PRN (Reason: Breakthrough Pain, Moderate) RF: 0 oxycodone [OxyContin] 40 mg tablet,oral only,ext.rel.12 hr 1 tab PO TID RF: 0 cephalexin 500 mg Capsule 500 mg PO QID RF: 0 Tresiba FlexTouch U-100 100 unit/mL (3 mL) Insulin Pen 60 unit SUBCUT DAILY RF: 0 Tresiba FlexTouch U-100 100 unit/mL (3 mL) insulin pen 56 unit SUBCUT BEDTIME RF: 0 divalproex 500 mg Tablet,Delayed Release (Dr/Ec) 500 mg PO BID RF: 0 Incruse Ellipta 62.5 mcg/actuation Blister With Device 1 inh INHALATION DAILY RF: 0 glipizide 5 mg tablet 5 mg PO BIDAC RF: 0 ibuprofen 800 mg tablet 800 mg PO TID PRN (Reason: Pain (Scale Score 4-6)) RF: 0 isosorbide mononitrate 60 mg tablet extended release 24 hr 60 mg PO DAILY RF: 0 furosemide [Lasix] 40 mg tablet 40 mg PO BID RF: 0 Referrals: Rayray Wright MD [Primary Care Provider] - 2 days Interventions: ED Discharge Assessment Last Done: 01/18/21 18:34 Discharge Date/Time: 01/18/21 18:34
[2021-01-18 14:59] LABS: MANUAL DIFF FLAG NO
[2021-01-18 15:03] LABS: Basophils Percent Auto 0.2 % (0-2); Eosinophils Absolute Auto 0.2 X10*3/uL (0.0-0.4); Eosinophils Percent Auto 1.2 % (0-4); Hematocrit 37.5 % (37-47); Hemoglobin 11.7 g/dl (12.0-16.0); Imm Gran Abs Auto 0.11 X10*3/uL (0.00-0.03); Imm Gran Pct Auto 0.8 % (0.0-0.4); Lymphocytes Absolute Auto 3.5 X10*3/uL (1.2-4.9); Lymphocytes Percent Auto 25.7 % (20-40); Mean Corpuscular HGB Conc 31.2 g/dl (31.0-35.0); Mean Corpuscular Hemoglobin 28.5 pg (27.0-33.0); Mean Corpuscular Volume 91.2 fL (80-98); Monocytes Absolute Auto 0.6 X10*3/uL (0.1-1.2); Monocytes Percent Auto 4.2 % (2-11); Neutrophils Absolute Auto 9.3 X10*3/uL (2.0-8.3); Neutrophils Percent Auto 67.9 % (45-73); Platelet Count 230 X10*3/uL (160-400); Red Blood Count 4.11 X10*6/uL (4.20-5.50); Red Cell Distribution Width 16.2 % (11.0-16.0); White Blood Count 13.7 X10*3/uL (4.8-10.8)
[2021-01-18 15:09] LABS: Prothrombin Time 11.7 SEC (9.9-13.0)
[2021-01-18 15:11] LABS: Partial Thromboplastin Time 38.6 SEC (24.1-38.0)
[2021-01-18 15:22] VITALS: BP 114/51; PULSE 74; RESP 16; O2SAT 95
[2021-01-18] MEDS: Morphine Sulfate 4 MG/ML CARTRIDGE IVPUSH (15:27)
[2021-01-18] MEDS: ondansetron HCL 4 MG/2 ML VIAL IVPUSH (15:27)
[2021-01-18 15:38] LABS: Alanine Aminotransferase 14 U/L (0-31); Albumin Level 3.8 g/dL (3.5-5.0); Alkaline Phosphatase 106 U/L (39-117); Anion Gap 13 (12-20); Aspartate Amino Transferase 12 U/L (5-31); Bilirubin Direct < 0.2 mg/dL (0.0-0.5); Bilirubin Total 0.3 mg/dL (0.0-1.0); Blood Urea Nitrogen 11 mg/dL (9-16); Calcium 8.8 mg/dL (8.4-10.2); Carbon Dioxide 32 mmol/L (22-29); Chloride 102 mmol/L (96-108); Creatinine Clr Calc Pharmacy 94.8; Estimated Glomerular Filt Rate > 60; Glucose Random 171 mg/dL (60-115); Magnesium 2.1 mg/dL (1.6-2.6); Sodium 142 mmol/L (135-145); Total Protein 7.5 g/dL (6.5-8.0)
[2021-01-18 15:41] LABS: B Type Natriuretic Peptide 32 pg/mL (<100); Troponin-I High Sensitivity < 3.5 ng/L (<3.5-17.0)
[2021-01-18 16:00] VITALS: PULSE 74; RESP 18; O2SAT 95
--- NOTE | 2021-01-18 16:03 | PHA.MEDREC ---
Med rec complete, no issues Pharmacy Consult ? Medication Reconciliation Pharmacy has completed the medication reconciliation.
[2021-01-18 16:43] LABS: Influenza A PCR NEGATIVE (Negative); Influenza B PCR NEGATIVE (Negative); Resp Syncy Virus RNA Qual PCR NEGATIVE (Negative); SARS COV2 PCR INHOUSE NEGATIVE (Negative)
[2021-01-18] MEDS: LORazepam 2 MG/ML VIAL 1 MG IVPUSH (17:15)
[2021-01-18] MEDS: Ketorolac Tromethamine 15 MG/ML VIAL IVPUSH (17:16)
[2021-01-18 17:37] LABS: Troponin-I High Sensitivity < 3.5 ng/L (<3.5-17.0)
== END 2021-01-18 18:34 | disposition home or self-care (01) ==
PROVIDERS: Physician Assistant; Emergency Provider Emergency Medicine; PCP Internal Medicine
DX: R07.89 Other chest pain (principal); R60.0 Localized edema; E11.9 Type 2 diabetes mellitus without complications; I10 Essential (primary) hypertension; E78.49 Other hyperlipidemia; Z79.899 Other long term (current) drug therapy; Z79.4 Long term (current) use of insulin; Z20.822 Contact with and (suspected) exposure to COVID-19
CPT/HCPCS: 0241U; 36415; 71045; 80048; 80076; 83735; 83880; 84484; 85025; 85610; 85730; 93005; 96374; 96375; 99285; 99291; J1885; J2060; J2270; J2405

== ENCOUNTER 2021-01-24 10:46 | Outpatient (REF) | payer MEDICARE, MEDICAID, SELFPAY ==
[2021-01-24 11:42] LABS: COVID-19 Test Negative (Negative)
== END 2021-01-24 10:47 | disposition home or self-care (01) ==
LOC: HO.LAB 10:46
PROVIDERS: PCP Internal Medicine; Visit Provider Internal Medicine
DX: Z20.822 Contact with and (suspected) exposure to COVID-19 (principal); R07.2 Precordial pain
CPT/HCPCS: 36415; 87635

== ENCOUNTER → 2021-02-02 12:21 | Outpatient (BNVA) | payer MEDICARE, MEDICAID, SELFPAY | PROVIDERS: PCP Internal Medicine; Referring Provider Internal Medicine; Visit Provider Internal Medicine | DX: I27.20 Pulmonary hypertension, unspecified (principal); I11.0 Hypertensive heart disease with heart failure; I50.812 Chronic right heart failure; R07.2 Precordial pain; E11.8 Type 2 diabetes mellitus with unspecified complications; E66.01 Morbid (severe) obesity due to excess calories | CPT/HCPCS: 99212 ==

== ENCOUNTER 2021-02-11 12:52 | Outpatient (REF) | payer MEDICARE, MEDICAID, SELFPAY ==
[2021-02-12 07:46] LABS: Estimated Average Glucose 140 mg/dL; Hemoglobin A1c % 6.5 %
== END 2021-02-11 12:53 | disposition home or self-care (01) ==
LOC: HO.LAB 12:52
PROVIDERS: Visit Provider Internal Medicine
DX: E11.9 Type 2 diabetes mellitus without complications (principal); Z79.4 Long term (current) use of insulin
CPT/HCPCS: 36415; 83036

== ENCOUNTER → 2021-04-19 12:37 | Outpatient (BNVA) | payer MEDICARE, MEDICAID, SELFPAY | PROVIDERS: PCP Internal Medicine; Visit Provider Hospitalist | DX: R91.1 Solitary pulmonary nodule (principal); J43.2 Centrilobular emphysema; I20.0 Unstable angina | CPT/HCPCS: 99212 ==

== ENCOUNTER 2021-04-27 12:28 | Outpatient (REF) | payer MEDICARE, MEDICAID, SELFPAY ==
--- NOTE | ~2021-04-27 | CT_ITS ---
EXAMINATION: CT CHEST WITHOUT CONTRAST CLINICAL INFORMATION: Follow-up pulmonary nodule COMPARISON: Previous chest CT scans most recent November 2020 chest x-ray December 2020 TECHNIQUE: Multidetector volumetric CT imaging of the chest was done. Axial MIP volume rendering provided. Sagittal and coronal reformatted images were obtained. This CT examination was performed using dose optimization techniques as appropriate, variously including the following: *Automated exposure control *Adjustment of mA and/or kV according to patient size (this includes techniques or standardized protocols for targeted exams where dose is matched to indication/reason for exam; i.e. extremities or head) *Use of iterative reconstruction technique DLP: 321 mGy-cm FINDINGS: LUNGS: There is evidence of emphysema. The 7 mm right lower lobe nodule axial image 319 series 5 is stable. There is a small 2 mm left upper lobe nodule axial image 91 series 5 that is stable. There is a small 3 mm right upper lobe nodule axial image 177 series 5 that is stable. There are areas of scarring or chronic subsegmental atelectasis at both lung bases, in the medial segment of the right upper lobe and superior segment of the right lower lobe that are stable. No endobronchial or endotracheal lesion is seen. MEDIASTINUM: There are small mediastinal lymph nodes that are stable. The heart does not appear enlarged. There is coronary artery calcification. There is no pericardial effusion. The visualized thyroid gland is unremarkable. PLEURA: There is no pleural effusion. No pleural mass or thickening. AXILLA: No lymphadenopathy. UPPER ABDOMEN: The gallbladder has been removed. OSSEOUS STRUCTURES: There are postsurgical changes to the cervical and thoracic spine. There are multiple old bilateral rib fractures. CT/CT chest wo con IMPRESSION: Stable pulmonary nodules, largest measuring 7 in the right lower lobe. Fleischner guidelines were followed.
== END 2021-04-27 12:29 | disposition home or self-care (01) ==
LOC: HO.CT 12:28
PROVIDERS: PCP Internal Medicine; Visit Provider Hospitalist
DX: R91.1 Solitary pulmonary nodule (principal)
CPT/HCPCS: 71250

== ENCOUNTER 2021-07-05 11:55 | Outpatient (REF) | payer MEDICARE, MEDICAID, SELFPAY ==
[2021-07-05 12:57] LABS: Estimated Average Glucose 166 mg/dL; Hemoglobin A1c % 7.4 %
== END 2021-07-05 11:56 | disposition home or self-care (01) ==
LOC: HO.LAB 11:55
PROVIDERS: PCP Internal Medicine; Visit Provider Internal Medicine
DX: E11.9 Type 2 diabetes mellitus without complications (principal); Z79.4 Long term (current) use of insulin
CPT/HCPCS: 36415; 83036

== ENCOUNTER → 2021-07-21 12:53 | Outpatient (BNVA) | payer MEDICARE, MEDICAID, SELFPAY | PROVIDERS: PCP Internal Medicine; Visit Provider Hospitalist | DX: Z01.811 Encounter for preprocedural respiratory examination (principal); R91.1 Solitary pulmonary nodule; J43.2 Centrilobular emphysema; I20.0 Unstable angina; R94.31 Abnormal electrocardiogram [ECG] [EKG] | CPT/HCPCS: 93005; 99212 ==

== ENCOUNTER 2021-08-08 10:54 | Outpatient (REF) | payer MEDICARE, MEDICAID, SELFPAY ==
[2021-08-08 12:15] LABS: ABG Base Excess 5.5 mmol/L; ABG HCO3 30 mmol/L (22-26); ABG pCO2 45 mmHg (32-45); ABG pH 7.43 (7.35-7.45); ABG pO2 83 mmHg (83-108)
[2021-08-08 13:37] LABS: ABG Refer to POC result
== END 2021-08-08 10:55 | disposition home or self-care (01) ==
LOC: HO.LAB 10:54
PROVIDERS: PCP Internal Medicine; Visit Provider Hospitalist
DX: J44.9 Chronic obstructive pulmonary disease, unspecified (principal)
CPT/HCPCS: 82803

== ENCOUNTER 2021-08-26 09:12 | Outpatient (REF) | payer MEDICARE, MEDICAID, SELFPAY ==
--- NOTE | ~2021-08-26 | FL_ITS ---
EXAMINATION: FL BARIUM SWALLOW CLINICAL INFORMATION: Gastroesophageal reflux disease. Question hardware compressing esophagus. COMPARISON: None TECHNIQUE: Barium swallow examination was performed using fluoroscopic evaluation in addition to multiple fluoroscopic spot views. The patient was imaged both upright and prone and using both thick and thin sulfate along with effervescent granules. Fluoroscopy Time: 1.3 minutes DAP: 12.24 Gycm2 Images: 45 FINDINGS: Following oral administration of thick barium and barium-coated turkey in upright AP and oblique views, there is normal propagation of the bolus from the oral cavity through the pharynx, esophagus into the stomach without any evidence of obstruction, narrowing or stricture. There is a suspicion of a small esophageal web along the anterior wall of the cervical esophagus but no obstruction is seen. There is no extrinsic compression or indentation along the cervical or thoracic esophageal wall, especially along the posterior or posterolateral campa. No intraluminal filling defects are seen. The patient was unable to lie supine or prone or stand upright for too long due to a bad back. There is a posterior thoracic spine hardware extending from T3 to T7 vertebra. 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 There is no external compression or indentation of the esophagus. No intrinsic obstruction is seen.
== END 2021-08-26 09:13 | disposition home or self-care (01) ==
LOC: HO.XRAY 09:12
PROVIDERS: PCP Internal Medicine; Visit Provider Hospitalist
DX: K21.9 Gastro-esophageal reflux disease without esophagitis (principal)
CPT/HCPCS: 74220

== ENCOUNTER 2021-09-22 10:34 | Outpatient (REF) | payer MEDICARE, MEDICAID, SELFPAY ==
--- NOTE | ~2021-09-22 | MM_ITS ---
EXAMINATION: MM SCREENING DIGITAL BREAST TOMOSYNTHESIS, BILATERAL CLINICAL INFORMATION: Screening. Asymptomatic. The lifetime risk of breast cancer based on the Tyrer-Cuzick Model is 3.0%. COMPARISON: Mammography: August 27, 2020 and studies dating back to July 23, 2009 TECHNIQUE: Digital breast tomosynthesis is performed in both the craniocaudal and mediolateral oblique views along with computer-aided detection (CAD). Synthesized 2D images are generated from the tomosynthesis. FINDINGS: There are scattered areas of fibroglandular density (ACR BI-RADS breast composition Category b). There are no significant masses, abnormal calcifications, or other abnormalities. MM/MM tomosynthesis screening BI IMPRESSION: There are no significant changes from prior study. ASSESSMENT: BI-RADS 1: Negative RECOMMENDATION: Routine annual mammography screening. This patient's information was entered into a reminder system with a target due date for their next mammogram.
== END 2021-09-22 10:35 | disposition home or self-care (01) ==
LOC: HO.MAMMO 10:34
PROVIDERS: Visit Provider Internal Medicine
DX: Z12.31 Encounter for screening mammogram for malignant neoplasm of breast (principal)
CPT/HCPCS: 77063; 77067

== ENCOUNTER → 2021-11-22 12:29 | Outpatient (BNVA) | payer MEDICARE, MEDICAID, SELFPAY | PROVIDERS: PCP Internal Medicine; Visit Provider Hospitalist | DX: J43.2 Centrilobular emphysema (principal); R91.1 Solitary pulmonary nodule; I20.0 Unstable angina; R94.31 Abnormal electrocardiogram [ECG] [EKG]; R07.2 Precordial pain; I27.20 Pulmonary hypertension, unspecified; Z79.899 Other long term (current) drug therapy | CPT/HCPCS: 94618; 99212 ==

== ENCOUNTER 2022-01-11 11:04 | Outpatient (REF) | payer MEDICARE, MEDICAID, SELFPAY ==
[2022-01-11 12:44] LABS: Estimated Average Glucose 163 mg/dL; Hemoglobin A1c % 7.3 %
[2022-01-13 10:27] LABS: CA-125 30 U/mL (<35)
== END 2022-01-11 11:05 | disposition home or self-care (01) ==
LOC: HO.LAB 11:04
PROVIDERS: Obstetrics & Gynecology Gynecologic Oncology; Absent Provider Neurological Surgery; PCP Internal Medicine; Visit Provider Internal Medicine
DX: E11.9 Type 2 diabetes mellitus without complications (principal); Z79.4 Long term (current) use of insulin
CPT/HCPCS: 36415; 83036; 86304

== ENCOUNTER 2022-01-16 13:59 | Outpatient (REF) | payer MEDICARE, MEDICAID, SELFPAY | END 2022-01-16 14:00 | disposition home or self-care (01) | LOC: HO.MRI 13:59 | PROVIDERS: Visit Provider Internal Medicine | DX: Z13.89 Encounter for screening for other disorder (principal) ==

== ENCOUNTER → 2022-01-24 08:27 | Outpatient (BNVA) | payer MEDICARE, MEDICAID, SELFPAY | PROVIDERS: PCP Internal Medicine; Visit Provider Hospitalist | DX: J43.2 Centrilobular emphysema (principal); R91.1 Solitary pulmonary nodule; I20.0 Unstable angina; R94.31 Abnormal electrocardiogram [ECG] [EKG]; R07.2 Precordial pain; I27.20 Pulmonary hypertension, unspecified | CPT/HCPCS: 99212 ==

== ENCOUNTER 2022-02-21 07:34 | Emergency (ER) | payer MEDICARE, MEDICAID, SELFPAY ==
--- NOTE | ~2022-02-21 | XR_ITS ---
EXAMINATION: XR LUMBOSACRAL SPINE CLINICAL INFORMATION: Right side sciatic pain COMPARISON: Lumbar spine radiograph from 11/28/2019 TECHNIQUE: Three views of the lumbosacral spine. FINDINGS: 5 nonrib-bearing lumbar-type vertebral bodies. No acute visible fracture or dislocation. Status post posterior spinal fusion of L3-L5 with bilateral transpedicular screws and interconnecting rods. Orthopedic hardware is grossly intact. Grade 1 anterolisthesis of L4 on L5. Moderate multilevel degenerative changes with disc space narrowing, endplate sclerosis, vacuum disc phenomenon, facet arthropathy. Vertebral body heights and disc spaces are otherwise maintained. Posterior elements are intact. Paraspinal soft tissues are unremarkable. Abdominal aortic atherosclerotic calcifications noted. Surgical clips in right upper quadrant abdomen. Visualized bowel gas is unremarkable. XR/XR lumbar spine 2-3V IMPRESSION: 1. No acute visible fracture or dislocation. 2. Status post posterior spinal fusion of L3-L5 with bilateral transpedicular screws and interconnecting rods. Orthopedic hardware is grossly intact. 3. Grade 1 anterolisthesis of L4 on L5. 4. Moderate multilevel degenerative changes.
--- NOTE | ~2022-02-21 | XR_ITS ---
EXAMINATION: XR HIP, RIGHT CLINICAL INFORMATION: Right hip pain COMPARISON: 01/11/2017 TECHNIQUE: Two views of the right hip. FINDINGS: Chronic appearing deformities of the bilateral superior and inferior pubic rami, favoring healed old fractures. Alignment across the hips is anatomic. No acute fracture is seen. There are degenerative changes of the bilateral sacroiliac joints. Partially visualized fusion hardware in the lumbar spine. XR/XR hip RT min 2V IMPRESSION: No acute findings identified. Chronic appearing changes as noted above.
[2022-02-21 07:45] VITALS: BP 110/52; PULSE 82; RESP 18; O2SAT 96
[2022-02-21 07:46] VITALS: BP 110/52; PULSE 78; RESP 18; TEMP 36.7; O2SAT 96; BMI 46.3
--- NOTE | 2022-02-21 08:19 | ED.EXTPRO ---
HPI - Extremity Problem General Chief complaint: Extremity Problem Stated complaint: RT HIP PAIN Time Seen by Provider: 02/21/22 08:19 Source: patient Mode of arrival: EMS Limitations: no limitations History of Present Illness HPI Narrative: patient was pushing her bed 3 days ago, she felt a pop. She has had pain with no rest. Right side with radiation down her right leg. Patient had lumbar fusion in September. She feels the pain mostly in the right hip MD Complaint: extremity pain Onset (ago): day(s) Pain Consistency: intermittent Location: right and other (back and hip) Quality: stabbing and sharp Radiation: distal Relieving factors: nothing Associated symptoms: denies other symptoms Related Data Home Medications Medication Instructions Recorded Confirmed allopurinol 300 mg tablet 300 mg PO DAILY 10/18/20 02/02/21 insulin aspart U-100 100 unit/mL See Rx Instructions .Route .COMPLEX 10/18/20 02/02/21 subcutaneous solution (Novolog U-100 Insulin aspart) insulin syringe-needle U-100 1 mL 10/18/20 02/02/21 31 gauge x 5/16 (Easy Touch Insulin Syringe) levothyroxine 75 mcg tablet 1 tab PO DAILY 10/18/20 02/02/21 (Euthyrox) lorazepam 1 mg tablet 1 tab PO TID 10/18/20 02/02/21 losartan 50 mg tablet 50 mg PO DAILY 10/18/20 02/02/21 omeprazole 20 mg capsule,delayed 20 mg PO BID@0630,1630 10/18/20 02/02/21 release oxycodone 10 mg tablet 1 tab PO TID PRN Breakthrough 10/18/20 02/02/21 Pain, Moderate glipizide 5 mg tablet 5 mg PO BIDAC 11/01/20 02/02/21 ibuprofen 800 mg tablet 800 mg PO TID PRN Pain (Scale 11/01/20 02/02/21 Score 4-6) furosemide 40 mg tablet (Lasix) 40 mg PO BID 01/13/21 02/02/21 isosorbide mononitrate 60 mg 60 mg PO DAILY 01/13/21 02/02/21 tablet,extended release 24 hr insulin degludec 100 unit/mL (3 56 unit subcut BEDTIME 01/18/21 02/02/21 mL) subcutaneous pen (Tresiba FlexTouch U-100 insulin) insulin degludec 100 unit/mL (3 60 unit subcut DAILY 01/18/21 02/02/21 mL) subcutaneous pen (Tresiba FlexTouch U-100 insulin) umeclidinium 62.5 mcg/actuation 1 inh inhalation DAILY 01/18/21 02/02/21 blister powder for inhalation (Incruse Ellipta) atorvastatin 10 mg tablet 10 mg PO DAILY 04/19/21 zolpidem 10 mg tablet 10 mg PO BEDTIME PRN 04/19/21 diltiazem HCl 120 mg 120 mg PO DAILY 01/24/22 capsule,extended release 24 hr meclizine 25 mg tablet mg PO PRN 01/24/22 metronidazole 0.75 % topical gel 1 appl topical BEDTIME 01/24/22 pen needle, diabetic 32 gauge x #50 ea 01/24/22 (BD Ultra-Fine Kierra Pen Needle) Previous Rx's Medication Instructions Recorded lidocaine 5 % topical patch 1 patch topical DAILY 30 days #30 04/19/21 (Lidoderm) ea nitroglycerin 0.4 mg sublingual 0.4 mg sublingual Q5M PRN chest 08/15/21 tablet pain #20 tabs roflumilast 500 mcg tablet 500 mcg PO DAILY 30 days #30 tabs 01/24/22 (Daliresp) naproxen 500 mg tablet (Naprosyn) 500 mg PO BID #20 tabs 02/21/22 ondansetron 4 mg disintegrating 4 mg PO Q8H 4 days #12 tabs 02/21/22 tablet Allergies Allergy/AdvReac Type Severity Reaction Status Date / Time Iodinated Contrast Media Allergy Severe DYSPNEA,INTERNAL Verified 01/24/22 08:42 [IV Dye, Iodine Containing] HIVES-THROAT CLOSES latex [LATEX] Allergy Severe HIVES,ITCH Verified 01/24/22 08:42 metoprolol [METOPROLOL] Allergy Severe RASH,ITCHIN Verified 01/24/22 08:42 G Penicillins Allergy Mild RASH Verified 01/24/22 08:42 prednisone [Prednisone] Allergy Mild BURNING Verified 01/24/22 08:42 SKIN,ITCHY Sulfa (Sulfonamide Allergy Mild ITCH Verified 01/24/22 08:42 Antibiotics) [Sulfa (Sulfonamides)] fish derived [fish] Allergy Anaphylaxis Verified 01/24/22 08:42 sumatriptan [From Imitrex] AdvReac Mild CP Verified 01/24/22 08:42 Review of Systems Constitutional: Constitutional: Reports no additional constitutional complaints Eyes: Eyes: Reports no additional eye complaints ENT: Denies dizziness Cardiovascular: Cardiovascular: Reports no additional cardiovascular complaints Respiratory: Respiratory: Reports as per HPI Gastrointestinal: Gastrointestinal: Reports no additional gastrointestinal complaints Genitourinary: Genitourinary: Reports no additional female genitourinary complaints Musculoskeletal: Musculoskeletal: Reports no additional musculoskeletal complaints Integumentary/Breasts: Skin/Breast: Denies rash Neurologic: Reports system reviewed and no additional complaints, except as documented, Denies dizziness and Denies Sensory deficit (Neuro) Psychiatric: Psychiatric: Denies anxiety [facility] Past Medical History Medical History COPD (chronic obstructive pulmonary disease) Diabetes Essential hypertension GERD (gastroesophageal reflux disease) HTN (hypertension) Hypothyroid Other and unspecified hyperlipidemia Pulmonary nodule QT prolongation Type 2 diabetes mellitus with unspecified complications Unstable angina Surgical History History of back surgery History of cardiac catheterization (~12/2020) Family History Family History Father Lung cancer Mother Brain tumor Son Heart attack Social History Social History Household Members: Friend(s) Housing: House Do you presently have visiting nurse or other home services: No Alcohol intake: never Patient Tobacco Use Status: Former Tobacco user Tobacco use type: Cigarette Cigarette Packs Per Day: 3 Cigarettes Per Day: 60.0 Years Smoked: 30 Second Hand Smoke Exposure: No Substance Use Type: Painkillers Advance Directives: No Advance Directives Information Provided: Yes Advance Directives on File: No service: No Current occupational status: employed Physical Exam Vital Signs: Vital Signs: Last Vital Signs Temp 98.1 F 02/21/22 07:46 Pulse 79 02/21/22 11:38 Resp 16 02/21/22 11:38 BP 116/51 L 02/21/22 11:40 Pulse Ox 97 02/21/22 11:38 O2 Del Method 09/27/22 11:38 BMI result Body Mass Index 46.3 Const: Nutritional Appearance: obese Orientation/consciousness: oriented to person and patient oriented x3 Limitations: no limitations HEENT: Head: Yes normal to inspection Ears: external ears normal General nose exam: Normal external nose present Mouth: Normal oral and palatal mucosa present and oropharynx normal Throat: Yes posterior oropharynx normal Eyes: General: appearance normal, both eyes and all related structures Neck: Other: supple Neck: Yes normal visual inspection Chest: Chest palpation & inspection: normal inspection of the chest Resp: Auscultation: clear to auscultation bilaterally Cardio: Jugular venous distension: no JVD Rate: regular rate Rhythm: regular rhythm Heart sounds: S1 normal heart sound present and S2 normal heart sound present GI: Inspection: Yes normal to inspection Palpation (GI): Soft to palpation, nontender and No hepatosplenomegaly present Auscultation: normal bowel sounds Back/Spine/Pelvis: Other: right SI joint and sciatic pain Skin: General skin exam: no rashes or lesions noted Neuro: General: oriented to person and patient oriented x3 Cranial nerves: Yes CN's II-XII intact bilaterally Motor exam (neuro): 5/5 motor strength present throughout Sensory Exam: No Sensory deficit (Neuro) Extrem: Other: right hip flexor pain Psych: Appearance: grossly normal Course Reevaluation(s) Reevaluation #1: will have physical therapy evaluate the patient Time: 10:22 Reevaluation #2: PT failed patient, patient refusing short term rehab, will dc home, son to pickup driver patient Time: 13:46 MDM - Extremity (Nontraumatic) Lab Data Labs: Lab Results 02/21/22 Range/Units 13:02 COVID-19 (MADHAV) Negative (Negative) COVID-19 Clin Com See Note Imaging Data hip: Radiologist's impression: FINDINGS: Chronic appearing deformities of the bilateral superior and inferior pubic rami, favoring healed old fractures. Alignment across the hips is anatomic. No acute fracture is seen. There are degenerative changes of the bilateral sacroiliac joints. Partially visualized fusion hardware in the lumbar spine. XR/XR hip RT min 2V IMPRESSION: No acute findings identified. Chronic appearing changes as noted above. ? Lumbar sacral xray: Radiologist's impression: FINDINGS: 5 nonrib-bearing lumbar-type vertebral bodies. No acute visible fracture or dislocation. Status post posterior spinal fusion of L3-L5 with bilateral transpedicular screws and interconnecting rods. Orthopedic hardware is grossly intact. Grade 1 anterolisthesis of L4 on L5. Moderate multilevel degenerative changes with disc space narrowing, endplate sclerosis, vacuum disc phenomenon, facet arthropathy. Vertebral body heights and disc spaces are otherwise maintained. Posterior elements are intact. Paraspinal soft tissues are unremarkable. Abdominal aortic atherosclerotic calcifications noted. Surgical clips in right upper quadrant abdomen. Visualized bowel gas is unremarkable. XR/XR lumbar spine 2-3V IMPRESSION: 1.? No acute visible fracture or dislocation. 2.? Status post posterior spinal fusion of L3-L5 with bilateral transpedicular screws and interconnecting rods. Orthopedic hardware is grossly intact. 3.? Grade 1 anterolisthesis of L4 on L5. 4.? Moderate multilevel degenerative changes. Discharge Plan Discharge Clinical Impression: Hip strain, Sciatica Patient Disposition: Home, Self-Care Instructions: Muscle Strain (ED), Sciatica (ED), Groin Strain (ED) Prescriptions: New ondansetron 4 mg tablet,disintegrating 4 mg PO Q8H 4 Days Qty: 12 0RF naproxen [Naprosyn] 500 mg tablet 500 mg PO BID Qty: 20 0RF No Action nitroglycerin 0.4 mg tablet, sublingual 0.4 mg sublingual Q5M PRN (Reason: chest pain) Qty: 20 3RF Rx Instructions: take one tablet every 5 minutes. Do not exceed 3 doses per episode. If chest pain still persist go to the emergency room. losartan 50 mg tablet 50 mg PO DAILY levothyroxine [Euthyrox] 75 mcg tablet 1 tab PO DAILY insulin aspart U-100 [Novolog U-100 Insulin aspart] 100 unit/mL solution See Rx Instructions .ROUTE .COMPLEX Rx Instructions: PT REPORTS SLIDING SCALE omeprazole 20 mg capsule,delayed release(DR/EC) 20 mg PO BID@0630,1630 (DME) insulin syringe-needle U-100 [Easy Touch Insulin Syringe] 1 mL 31 gauge x 5/16 syringe MISCELLANEOUS allopurinol 300 mg tablet 300 mg PO DAILY lorazepam 1 mg tablet 1 tab PO TID oxycodone 10 mg tablet 1 tab PO TID PRN (Reason: Breakthrough Pain, Moderate) Tresiba FlexTouch U-100 100 unit/mL (3 mL) Insulin Pen 60 unit SUBCUT DAILY Tresiba FlexTouch U-100 100 unit/mL (3 mL) insulin pen 56 unit SUBCUT BEDTIME Incruse Ellipta 62.5 mcg/actuation Blister With Device 1 inh INHALATION DAILY glipizide 5 mg tablet 5 mg PO BIDAC ibuprofen 800 mg tablet 800 mg PO TID PRN (Reason: Pain (Scale Score 4-6)) isosorbide mononitrate 60 mg tablet extended release 24 hr 60 mg PO DAILY furosemide [Lasix] 40 mg tablet 40 mg PO BID (DME) pen needle, diabetic [BD Ultra-Fine Kierra Pen Needle] 32 gauge x 5/32 needle See Rx Instructions .ROUTE QID Qty: 50 Rx Instructions: As directed metronidazole 0.75 % gel 1 appl topical BEDTIME diltiazem HCl 120 mg capsule,extended release 24hr 120 mg PO DAILY Daliresp 500 mcg tablet 500 mcg PO DAILY 30 Days Qty: 30 11RF zolpidem 10 mg tablet 10 mg PO BEDTIME PRN atorvastatin 10 mg tablet 10 mg PO DAILY lidocaine [Lidoderm] 5 % adhesive patch,medicated 1 patch topical DAILY 30 Days Qty: 30 4RF Rx Instructions: leave on most painful area for up to 12 hrs meclizine 25 mg tablet PO PRN Referrals: [facility] [Outside] Rayray Wright MD [Primary Care Provider] - 5 days
[2022-02-21] MEDS: Ketorolac Tromethamine 60 MG/2 ML VIAL IM (08:51)
[2022-02-21] MEDS: Ondansetron ODT 4 MG TAB.RAPDIS TRANSLINGU (08:52)
[2022-02-21] MEDS: Cyclobenzaprine HCl 10 MG TABLET PO (08:52)
[2022-02-21 10:01] VITALS: BP 88/49; PULSE 79; RESP 16; O2SAT 94
[2022-02-21 10:50] VITALS: BP 116/51
[2022-02-21 11:38] VITALS: BP 103/41; PULSE 79; RESP 16; O2SAT 97
[2022-02-21 11:40] VITALS: BP 116/51
[2022-02-21] MEDS: Acetaminophen 325 MG TABLET 975 MG PO (11:53)
[2022-02-21 13:21] LABS: COVID-19 Test Negative (Negative); IDNOW Serial# 9DB6401D
--- NOTE | 2022-02-21 13:46 | MHC.CM.ED ---
Received case management consult from Dr Law. Patient came to the ER with hip pain. Work up essentially negative. Physical therapy eval completed. Short term rehab is recommended. Met with patient in regards to discharge planning. Patient lives with her son, uses a walker/cane for mobility, and had no services prior to coming to the ER. PCP verified. Patient received 4 Moderna vaccines. HCP completed, signed and witnessed. Original given to patient. Copy placed in chart. Patient is declining STR at this time. Patient agreeable to referral to [facility] for m[facility] and physical therapy. Referral made via [facility]. Patient, Catina ISLAS, and Dr Law aware. Continue to monitor for d/c needs.
== END 2022-02-21 14:35 | disposition home or self-care (01) ==
PROVIDERS: Emergency Provider Emergency Medicine; PCP Internal Medicine
DX: M54.41 Lumbago with sciatica, right side (principal); M25.551 Pain in right hip; E11.9 Type 2 diabetes mellitus without complications; Z20.822 Contact with and (suspected) exposure to COVID-19; Z79.4 Long term (current) use of insulin; Z79.899 Other long term (current) drug therapy; Z87.891 Personal history of nicotine dependence
CPT/HCPCS: 72100; 73502; 87635; 96372; 97161; 99284; J1885

== ENCOUNTER 2022-04-05 12:47 | Outpatient (REF) | payer MEDICARE, MEDICAID, SELFPAY ==
[2022-04-05 13:02] LABS: MANUAL DIFF FLAG NO
[2022-04-05 13:13] LABS: Basophils Percent Auto 0.3 % (0-2); Eosinophils Absolute Auto 0.1 X10*3/uL (0.0-0.4); Eosinophils Percent Auto 0.9 % (0-4); Hematocrit 34.1 % (37.0-47.0); Hemoglobin 10.5 g/dl (12.0-16.0); Imm Gran Abs Auto 0.07 X10*3/uL (0.00-0.03); Imm Gran Pct Auto 0.5 % (0.0-0.4); Lymphocytes Absolute Auto 3.6 X10*3/uL (1.2-4.9); Lymphocytes Percent Auto 23.7 % (20-40); Mean Corpuscular HGB Conc 30.8 g/dl (31.0-35.0); Mean Corpuscular Hemoglobin 24.9 pg (27.0-33.0); Mean Platelet Volume 10.2 fL (9.4-12.3); Monocytes Absolute Auto 0.5 X10*3/uL (0.1-1.2); Monocytes Percent Auto 3.3 % (2-11); Neutrophils Absolute Auto 10.7 x10*3/uL (2.0-8.3); Neutrophils Percent Auto 71.3 % (45-73); Platelet Count 258 X10*3/uL (160-400); Red Blood Count 4.21 X10*6/uL (4.20-5.50)
== END 2022-04-05 12:48 | disposition home or self-care (01) ==
LOC: HO.LAB 12:47
PROVIDERS: PCP Internal Medicine; Visit Provider Internal Medicine
DX: R53.83 Other fatigue (principal)
CPT/HCPCS: 36415; 85025